=== PATIENT | female | born 1975 | race Caucasian/White ===

== ENCOUNTER 2016-10-09 08:07 | Emergency (ER) | payer SELFPAY ==
[~2016-10-09] VITALS: Ht 160 cm; Wt 68.0 kg
[2016-10-09] MEDS ORDERED: ASPIRIN 81 MG CHEW (CHILDREN'S ASA) ONE (08:15)
[2016-10-09 08:31] LABS: BASOPHILS % (AUTO) 0 % (0-10); EOSINOPHILS # (AUTO) 0.2 10^3/uL (0.0-0.3); EOSINOPHILS % (AUTO) 2 % (0-10); LYMPHOCYTES # (AUTO) 3.4 X 10^3 (1.0-4.0); LYMPHOCYTES % (AUTO) 35 % (12-44); MEAN CORPUSCULAR HEMOGLOBIN 31 PG (25-34); MEAN CORPUSCULAR HGB CONC 34 G/DL (32-36); MEAN CORPUSCULAR VOLUME 93 FL (80-99); MEAN PLATELET VOLUME 11.6 FL (7.4-10.4); MONOCYTES # (AUTO) 0.6 X 10^3 (0.0-1.0); MONOCYTES % (AUTO) 6 % (0-12); NEUTROPHILS # (AUTO) 5.5 X 10^3 (1.8-7.8); NEUTROPHILS % (AUTO) 57 % (42-75); PLATELET COUNT 226 10^3/uL (130-400); RED BLOOD COUNT 5.08 10^6/uL (4.35-5.85); RED CELL DISTRIBUTION WIDTH 14.3 % (10.0-14.5); WHITE BLOOD COUNT 9.6 10^3/uL (4.3-11.0)
[2016-10-09 08:50] LABS: ALANINE AMINOTRANSFERASE 16 U/L (0-55); ALBUMIN 4.4 G/DL (3.2-4.5); ANION GAP 9 MMOL/L (5-14); ASPARTATE AMINO TRANSFERASE 14 U/L (5-34); BILIRUBIN,TOTAL 0.7 MG/DL (0.1-1.0); BLOOD UREA NITROGEN 11 MG/DL (7-18); BUN/CREATININE RATIO 14; CALCIUM 9.1 MG/DL (8.5-10.1); CARBON DIOXIDE 22 MMOL/L (21-32); CHLORIDE 110 MMOL/L (98-107); CREATININE SERUM 0.77 MG/DL (0.60-1.30); GFR ESTIMATED > 60; GLUCOSE 110 MG/DL (70-105); POTASSIUM 3.9 MMOL/L (3.6-5.0); SODIUM 141 MMOL/L (135-145)
[2016-10-09 08:55] LABS: TROPONIN I < 0.30 NG/ML (<0.30)
--- NOTE | 2016-10-09 09:06 | Diagnostic Imaging Report ---
EXAMINATION: Portable upright radiograph of the chest. INDICATION: Chest pain. FINDINGS: The lungs are clear. The heart size is normal. There is no effusion or pneumothorax. The mediastinum and adarsh appear unremarkable. IMPRESSION: Unremarkable exam. Dictated by: Dictated on workstation # [id number]
--- NOTE | 2016-10-09 10:29 | ED Chest Pain ---
General Chief Complaint: Chest Pain Stated Complaint: CHEST PAIN Nursing Triage Note: Pt reports chest pain 7/10 starting yesterday and has been intermittent. worsening this am accompanied by radiating to neck, back, and left arm, and diaphoresis. Nursing Sepsis Screen: No Definite Risk Source: patient Exam Limitations: no limitations History of Present Illness Time seen by provider: 10:23 Initial Comments The patient is a 41-year-old white female. She reports that for the past 2 days she is experienced very sharp chest pain which is central and radiates to the neck and arms. It lasts for no more than a few seconds. It occurs when she goes from the prone position to standing. She has no family history of early heart disease. Her cholesterol is not known. Her blood pressure status is not known. She still menstruates regularly. She has smoked for somewhat more than 20 years at one half pack cigarettes per day. She has no dyspnea on exertion. She is not diabetic. Timing/Duration: 1-2 days Severity/Quality: severe, sharp Location: central Radiation: jaw, back Prior CP/Workup: no prior chest pain Associated Symptoms: denies symptoms Allergies and Home Medications Home Medications No Active Prescriptions or Reported Meds Review of Systems Constitutional: see HPI EENTM: No Symptoms Reported Respiratory: No Symptoms Reported Cardiovascular: See HPI, Chest Pain Gastrointestinal: No Symptoms Reported Genitourinary: No Symptoms Reported Musculoskeletal: no symptoms reported Skin: no symptoms reported Psychiatric/Neurological: No Symptoms Reported Past Bavekpk-Zarqrk-Fjkkho Hx Patient Social History Alcohol Use: Occasionally Uses Recreational Drug Use: No Smoking Status: Current Everyday Smoker Type Used: Cigarettes 2nd Hand Smoke Exposure: Yes Recent Foreign Travel: No Contact w/Someone Who Travel: No Recent Infectious Disease Expo: No Recent Hopitalizations: No Immunizations Up To Date Tetanus Booster (TDap): Unknown Seasonal Allergies Seasonal Allergies: Yes Surgeries HX Surgeries: Yes Surgeries: Adenoidectomy, Tonsillectomy Respiratory Hx Respiratory Disorders: No Cardiovascular Hx Cardiac Disorders: No Neurological Hx Neurological Disorders: No Reproductive System : No Hx Reproductive Disorders: No Genitourinary Hx Genitourinary Disorders: No Gastrointestinal Hx Gastrointestinal Disorders: No Musculoskeletal Hx Musculoskeletal Disorders: No Endocrine Hx Endocrine Disorders: No HEENT HX ENT Disorders: No Cancer Hx Cancer: No Psychosocial Hx Psychiatric Problems: No Integumentary HX Skin/Integumentary Disorder: No Blood Transfusions Hx Blood Disorders: No Physical Exam Vital Signs Vital Sign - Last 12Hours Capillary Refill : Less Than 3 Seconds General Appearance: No Apparent Distress, WD/WN HEENT: Normal ENT Inspection Neck: Normal Inspection Respiratory: Chest Non Tender, Lungs Clear, Normal Breath Sounds, No Accessory Muscle Use, No Respiratory Distress Cardiovascular: Regular Rate, Rhythm, No Edema, No Gallop, No JVD, No Murmur, Normal Peripheral Pulses Gastrointestinal: Normal Bowel Sounds, No Organomegaly, No Pulsatile Mass, Non Tender Extremity: Normal Capillary Refill, Normal Inspection, Normal Range of Motion, Non Tender, No Calf Tenderness, No Pedal Edema Neurologic/Psychiatric: Alert, Oriented x3, No Motor/Sensory Deficits, Normal Mood/Affect Skin: Normal Color, Warm/Dry Progress/Results/Core Measures Results/Orders Lab Results Laboratory Tests Test 10/09/16 08:22 Range/Units White Blood Count 9.6 4.3-11.0 10^3/uL Red Blood Count 5.08 4.35-5.85 10^6/uL Hemoglobin 15.9 11.5-16.0 G/DL Hematocrit 47 35-52 % Mean Corpuscular Volume 93 80-99 FL Mean Corpuscular Hemoglobin 31 25-34 PG Mean Corpuscular Hemoglobin Concent 34 32-36 G/DL Red Cell Distribution Width 14.3 10.0-14.5 % Platelet Count 226 130-400 10^3/uL Mean Platelet Volume 11.6 H 7.4-10.4 FL Neutrophils (%) (Auto) 57 42-75 % Lymphocytes (%) (Auto) 35 12-44 % Monocytes (%) (Auto) 6 0-12 % Eosinophils (%) (Auto) 2 0-10 % Basophils (%) (Auto) 0 0-10 % Neutrophils # (Auto) 5.5 1.8-7.8 X 10^3 Lymphocytes # (Auto) 3.4 1.0-4.0 X 10^3 Monocytes # (Auto) 0.6 0.0-1.0 X 10^3 Eosinophils # (Auto) 0.2 0.0-0.3 10^3/uL Basophils # (Auto) 0.0 0.0-0.1 10^3/uL Sodium Level 141 135-145 MMOL/L Potassium Level 3.9 3.6-5.0 MMOL/L Chloride Level 110 H 98-107 MMOL/L Carbon Dioxide Level 22 21-32 MMOL/L Anion Gap 9 5-14 MMOL/L Blood Urea Nitrogen 11 7-18 MG/DL Creatinine 0.77 0.60-1.30 MG/DL Estimat Glomerular Filtration Rate > 60 BUN/Creatinine Ratio 14 Glucose Level 110 H 70-105 MG/DL Calcium Level 9.1 8.5-10.1 MG/DL Total Bilirubin 0.7 0.1-1.0 MG/DL Aspartate Amino Transf (AST/SGOT) 14 5-34 U/L Alanine Aminotransferase (ALT/SGPT) 16 0-55 U/L Alkaline Phosphatase 64 40-136 U/L Troponin I < 0.30 <0.30 NG/ML Total Protein 7.0 6.4-8.2 G/DL Albumin 4.4 3.2-4.5 G/DL My Orders Orders - LISSETTE FISHER MD Ekg Tracing (10/09/16 08:10) Cbc With Automated Diff (10/09/16 08:10) Comprehensive Metabolic Panel (10/09/16 08:10) Troponin I (10/09/16 08:10) Chest 1 View, Ap/Pa Only (10/09/16 08:10) Aspirin Chewable Tablet (Baby Aspirin Ch (10/09/16 08:15) Medications Given in ED Current Medications Medications Dose Ordered Sig/Kd Route Start Time Stop Time Status Last Admin Dose Admin Aspirin 81 mg STK-MED ONCE .ROUTE 10/09/16 08:15 10/09/16 08:19 DC 10/09/16 08:18 81 MG Vital Signs/I&O Vital Sign - Last 12Hours 10/09/16 10/09/16 08:11 08:11 Pulse 70 Resp 18 B/P (MAP) 138/84 Pulse Ox 95 O2 Delivery Room Air Room Air Blood Pressure Mean: 102 Departure Communication Progress Notes Chest x-ray, EKG, and troponin are all normal. She has attempted nothing in the way of NSAIDs for pain relief. She is felt to fall in the low risk category. Impression Impression: Primary Impression: Chest pain Disposition: HOME, SELF-CARE Condition: Stable/Unchanged Departure-Patient Inst. Decision time for Depature: 10:29 Patient Instructions: Chest Pain That Is Not Caused by the Heart (DC) Add. Discharge Instructions: All discharge instructions reviewed with patient and/or family. Voiced understanding. Take one aspirin daily at present. Try ibuprofen 600 mg 3 times daily or naproxen 222 tabs twice daily for the next several days to see if this relieves your symptoms. If symptoms persist after these measures see your doctor or return to the emergency room Scripts No Active Prescriptions or Reported Meds LISSETTE FISHER MD October 09, 2016 10:29
[2016-10-09 10:53] VITALS: BP 113/87
== END 2016-10-09 10:53 | disposition home or self-care (01) ==
LOC: ER 08:10
DX: R07.9 Chest pain, unspecified (principal); F17.210 Nicotine dependence, cigarettes, uncomplicated
CPT/HCPCS: 36415; 71010; 80053; 84484; 85025; 93005

== ENCOUNTER 2018-05-17 22:36 | Emergency (ER) | payer MEDICAID, OTHER ==
[~2018-05-17] VITALS: Ht 160 cm; Wt 97.5 kg
[2018-05-17 23:22] LABS: BILIRUBIN,URINE NEGATIVE (NEGATIVE); CLARITY,URINE CLEAR; COLOR,URINE YELLOW; GLUCOSE, URINE (UA) NEGATIVE (NEGATIVE); KETONES,URINE NEGATIVE (NEGATIVE); LEUKOCYTE ESTERASE ,URINE NEGATIVE (NEGATIVE); NITRITE,URINE NEGATIVE (NEGATIVE); PH,URINE 6 (5-9); PROTEIN,URINE NEGATIVE (NEGATIVE); UROBILINOGEN,URINE NORMAL (NORMAL)
[2018-05-17 23:28] LABS: BASOPHILS % (AUTO) 0 % (0-10); EOSINOPHILS # (AUTO) 0.9 10^3/uL (0.0-0.3); EOSINOPHILS % (AUTO) 8 % (0-10); HEMATOCRIT 43 % (35-52); HEMOGLOBIN 14.4 G/DL (11.5-16.0); LYMPHOCYTES # (AUTO) 3.9 X 10^3 (1.0-4.0); LYMPHOCYTES % (AUTO) 36 % (12-44); MEAN CORPUSCULAR HEMOGLOBIN 32 PG (25-34); MEAN CORPUSCULAR HGB CONC 33 G/DL (32-36); MEAN CORPUSCULAR VOLUME 98 FL (80-99); MEAN PLATELET VOLUME 11.4 FL (7.4-10.4); MONOCYTES # (AUTO) 0.6 X 10^3 (0.0-1.0); MONOCYTES % (AUTO) 6 % (0-12); NEUTROPHILS # (AUTO) 5.4 X 10^3 (1.8-7.8); NEUTROPHILS % (AUTO) 50 % (42-75); PLATELET COUNT 237 10^3/uL (130-400); RED BLOOD COUNT 4.45 10^6/uL (4.35-5.85); RED CELL DISTRIBUTION WIDTH 14.3 % (10.0-14.5); WHITE BLOOD COUNT 10.8 10^3/uL (4.3-11.0)
[2018-05-17 23:29] LABS: BACTERIA,URINE TRACE /HPF; WBC,URINE 0-2 /HPF
[2018-05-17 23:46] LABS: BILIRUBIN,TOTAL 0.2 MG/DL (0.1-1.0); CALCIUM 8.6 MG/DL (8.5-10.1); CREATININE SERUM 1.06 MG/DL (0.60-1.30); MAGNESIUM 2.2 MG/DL (1.8-2.4); POTASSIUM 3.3 MMOL/L (3.6-5.0); TOTAL PROTEIN 6.3 GM/DL (6.4-8.2)
[2018-05-17 23:52] LABS: INR 0.9 (0.8-1.4); PROTHROMBIN TIME PATIENT 11.9 SEC (12.2-14.7)
[2018-05-18] MEDS ORDERED: FUROSEMIDE 40 MG/4 ML INJ (LASIX) IVP ONE
[2018-05-18 00:08] LABS: AMPHETAMINE SCREEN, URINE NEGATIVE (NEGATIVE); BARBITURATE SCREEN URINE NEGATIVE (NEGATIVE); BENZODIAZEPINES SCREEN URINE NEGATIVE (NEGATIVE); CANNABINOID SCREEN, URINE POSITIVE (NEGATIVE); COCAINE SCREEN URINE NEGATIVE (NEGATIVE); METHADONE STAT NEGATIVE (NEGATIVE); METHAMPHETAMINE SCREEN URINE S NEGATIVE (NEGATIVE); OPIATE SCREEN URINE NEGATIVE (NEGATIVE); OXYCODONE STAT NEGATIVE (NEGATIVE); PROPOXYPHENE STAT NEGATIVE (NEGATIVE); TRICYCLIC ANTIDEPRESSANTS SCRE NEGATIVE (NEGATIVE)
[2018-05-18] MEDS ORDERED: KCL 10 MEQ TAB (MICRO K) PO ONE ×2 (00:15→00:57)
--- NOTE | 2018-05-18 00:32 | ED General ---
General Chief Complaint: General Problems/Pain Stated Complaint: ALLERGIC REACTION Nursing Triage Note: PT WAS SEEN AT [facility] IN [facility], PLACED ON STERIOD MEDICATION LAST THURSDAY, THURSDAY THE PT STATES SHE BEGAN TO EXPERIENCE SWELLING OF THE HANDS AND FEET WITH HAND NUMBNESS REPORTED IN THE RIGHT HAND. DENIES SOB OR DIFFICULTY BREATHING Nursing Sepsis Screen: No Definite Risk Allergies and Home Medications Allergies Coded Allergies: No Known Drug Allergies (Unverified , 05/17/18) Home Medications No Active Prescriptions or Reported Meds Past Agtztaf-Okyreo-Mcjtqg Hx Patient Social History Alcohol Use: Occasionally Uses Number of Drinks Today: 3 Alcohol Beverage of Choice: Cheap Liquor Recreational Drug Use: No Smoking Status: Current Everyday Smoker Type Used: Cigarettes 2nd Hand Smoke Exposure: Yes Recent Foreign Travel: No Contact w/Someone Who Travel: No Recent Infectious Disease Expo: No Recent Hopitalizations: No Immunizations Up To Date Tetanus Booster (TDap): Unknown Seasonal Allergies Seasonal Allergies: Yes Past Medical History Surgeries: Yes Adenoidectomy, Tonsillectomy Respiratory: No Cardiac: No Neurological: No : No Last Menstrual Period: May 02, 2018 Reproductive Disorders: No Gastrointestinal: No Musculoskeletal: No Endocrine: No Cancer: No Psychosocial: No Integumentary: No Blood Disorders: No Physical Exam Vital Signs Vital Signs - First Documented 05/17/18 22:40 Temp 97.3 Pulse 88 Resp 20 B/P (MAP) 120/63 (82) Pulse Ox 95 O2 Delivery Room Air Capillary Refill : Less Than 3 Seconds Height, Weight, BMI Height: 5'3.00" Weight: 215lbs. oz. 97.537351fw; BMI Method:Stated Progress/Results/Core Measures Suspected Sepsis Recent Fever Within 48 Hours: No Infection Criteria Present: None New/Unexplained Altered Menta: No Sepsis Screen: No Definite Risk SIRS Temperature:97.3 Pulse: 88 Respiratory Rate: 20 Laboratory Tests 05/17/18 23:15: White Blood Count 10.8 Blood Pressure 120 /63 Mean: 82 Laboratory Tests 05/17/18 23:15: Creatinine 1.06, INR Comment 0.9, Platelet Count 237, Total Bilirubin 0.2 Results/Orders Lab Results Laboratory Tests Test 05/17/18 23:05 05/17/18 23:15 Range/Units Urine Color YELLOW Urine Clarity CLEAR Urine pH 6 5-9 Urine Specific [place] 1.005 L 1.016-1.022 Urine Protein NEGATIVE NEGATIVE Urine Glucose (UA) NEGATIVE NEGATIVE Urine Ketones NEGATIVE NEGATIVE Urine Nitrite NEGATIVE NEGATIVE Urine Bilirubin NEGATIVE NEGATIVE Urine Urobilinogen NORMAL NORMAL MG/DL Urine Leukocyte Esterase NEGATIVE NEGATIVE Urine RBC (Auto) NEGATIVE NEGATIVE Urine RBC NONE /HPF Urine WBC 0-2 /HPF Urine Squamous Epithelial Cells 10-25 H /HPF Urine Crystals NONE /LPF Urine Bacteria TRACE /HPF Urine Casts NONE /LPF Urine Mucus NEGATIVE /LPF Urine Culture Indicated NO Urine Opiates Screen NEGATIVE NEGATIVE Urine Oxycodone Screen NEGATIVE NEGATIVE Urine Methadone Screen NEGATIVE NEGATIVE Urine Propoxyphene Screen NEGATIVE NEGATIVE Urine Barbiturates Screen NEGATIVE NEGATIVE Ur Tricyclic Antidepressants Screen NEGATIVE NEGATIVE Urine Phencyclidine Screen NEGATIVE NEGATIVE Urine Amphetamines Screen NEGATIVE NEGATIVE Urine Methamphetamines Screen NEGATIVE NEGATIVE Urine Benzodiazepines Screen NEGATIVE NEGATIVE Urine Cocaine Screen NEGATIVE NEGATIVE Urine Cannabinoids Screen POSITIVE H NEGATIVE White Blood Count 10.8 4.3-11.0 10^3/uL Red Blood Count 4.45 4.35-5.85 10^6/uL Hemoglobin 14.4 11.5-16.0 G/DL Hematocrit 43 35-52 % Mean Corpuscular Volume 98 80-99 FL Mean Corpuscular Hemoglobin 32 25-34 PG Mean Corpuscular Hemoglobin Concent 33 32-36 G/DL Red Cell Distribution Width 14.3 10.0-14.5 % Platelet Count 237 130-400 10^3/uL Mean Platelet Volume 11.4 H 7.4-10.4 FL Neutrophils (%) (Auto) 50 42-75 % Lymphocytes (%) (Auto) 36 12-44 % Monocytes (%) (Auto) 6 0-12 % Eosinophils (%) (Auto) 8 0-10 % Basophils (%) (Auto) 0 0-10 % Neutrophils # (Auto) 5.4 1.8-7.8 X 10^3 Lymphocytes # (Auto) 3.9 1.0-4.0 X 10^3 Monocytes # (Auto) 0.6 0.0-1.0 X 10^3 Eosinophils # (Auto) 0.9 H 0.0-0.3 10^3/uL Basophils # (Auto) 0.0 0.0-0.1 10^3/uL Prothrombin Time 11.9 L 12.2-14.7 SEC INR Comment 0.9 0.8-1.4 Activated Partial Thromboplast Time 27 24-35 SEC Sodium Level 143 135-145 MMOL/L Potassium Level 3.3 L 3.6-5.0 MMOL/L Chloride Level 107 98-107 MMOL/L Carbon Dioxide Level 21 21-32 MMOL/L Anion Gap 15 H 5-14 MMOL/L Blood Urea Nitrogen 12 7-18 MG/DL Creatinine 1.06 0.60-1.30 MG/DL Estimat Glomerular Filtration Rate 57 BUN/Creatinine Ratio 11 Glucose Level 109 H 70-105 MG/DL Calcium Level 8.6 8.5-10.1 MG/DL Corrected Calcium 8.6 8.5-10.1 MG/DL Magnesium Level 2.2 1.8-2.4 MG/DL Total Bilirubin 0.2 0.1-1.0 MG/DL Aspartate Amino Transf (AST/SGOT) 33 5-34 U/L Alanine Aminotransferase (ALT/SGPT) 61 H 0-55 U/L Alkaline Phosphatase 77 40-136 U/L B-Type Natriuretic Peptide 114.4 H <100.0 PG/ML Total Protein 6.3 L 6.4-8.2 GM/DL Albumin 4.0 3.2-4.5 GM/DL My Orders Orders - EDIPRESTON K DO Saline Lock/Iv-Start (05/17/18 23:05) Urine Bedside (05/17/18 23:05) BNP (05/17/18 23:05) Cbc With Automated Diff (05/17/18 23:05) Comprehensive Metabolic Panel (05/17/18 23:05) Drug Screen Stat (Urine) (05/17/18 23:05) Magnesium (05/17/18 23:05) Protime With Inr (05/17/18 23:05) Partial Thromboplastin Time (05/17/18 23:05) Ua Culture If Indicated (05/17/18 23:05) Furosemide Injection (Lasix Injection) (05/18/18 00:00) Potassium Chloride (Tablet) (Klor Con Ta (05/18/18 00:15) Chest Pa/Lat (2 View) (05/18/18 00:31) Medications Given in ED Current Medications Medications Dose Ordered Sig/Kd Route Start Time Stop Time Status Last Admin Dose Admin Furosemide 40 mg ONCE ONCE IVP 05/18/18 00:00 05/18/18 00:01 DC 05/18/18 01:03 40 MG Potassium Chloride 20 meq ONCE ONCE PO 05/18/18 00:15 05/18/18 00:16 UNV 05/18/18 01:03 20 MEQ Vital Signs/I&O 05/17/18 22:40 Temp 97.3 Pulse 88 Resp 20 B/P (MAP) 120/63 (82) Pulse Ox 95 O2 Delivery Room Air Capillary Refill : Less Than 3 Seconds Blood Pressure Mean: 82 Departure Impression Primary Impression: Bronchitis Additional Impressions: Fluid retention Hypokalemia Disposition: HOME, SELF-CARE Condition: Stable Departure-Patient Inst. Referrals: NO,LOCAL PHYSICIAN (PCP/Family) Primary Care Physician Patient Instructions: Acute Bronchitis, Adult (DC), Dependent Edema (DC), Hypokalemia (DC) Add. Discharge Instructions: LOW SODIUM DIET--LESS THAN 2 GRAMS OF SODIUM A DAY ELEVATE LEGS MUCH POSSIBLE FOLLOW UP WITH YOUR DR IN 3-4 DAYS FOR RECHECK All discharge instructions reviewed with patient and/or family. Voiced understanding. Scripts Guaifenesin/Dextromethorphan (Mucinex Dm ER 1,200-60 mg Tab) 1 Each Tbmp.12hr 1 EACH PO BID for 10 Days, #20 EA Prov: PRESTON DALEY DO 05/18/18 Benzonatate (TESSALON PERLES) 100 Mg Capsule 1-2 TAB PO TID for Cough, #30 CAP Prov: PRESTON DALEY K DO 05/18/18 Doxycycline Monohydrate (Doxycycline Monohydrate) 100 Mg Capsule 100 MG PO BID, #20 CAP Prov: PRESTON DALEY DO 05/18/18 PRESTON DALEY DO May 18, 2018 00:32
[2018-05-18] MEDS ORDERED: DOXY100C42 PO (01:09)
[2018-05-18] MEDS ORDERED: GUAI1TBM19 PO (01:09)
[2018-05-18] MEDS ORDERED: BENZ100C18 PO (01:09)
[2018-05-18] MEDS ORDERED: FUROSEMIDE 40 MG/4 ML INJ (LASIX) ONE (02:04)
[2018-05-18 02:13] VITALS: BP 114/80
--- NOTE | 2018-05-18 07:12 | Diagnostic Imaging Report ---
INDICATION: Swelling of the hands and feet with numbness. On steroids.. TECHNIQUE: Two view chest 1:08 AM CORRELATION STUDY: 10/09/2016 FINDINGS: The heart size, mediastinal configuration and pulmonary vasculature are within normal limits. The lungs are clear with no consolidating infiltrate. There is no significant pleural effusion or pneumothorax. Visualized osseous structures are unremarkable. IMPRESSION: 1. Generally stable chest demonstrating no acute abnormality. Dictated by: Dictated on workstation # [id number]
== END 2018-05-18 02:13 | disposition home or self-care (01) ==
LOC: EDUNIT# 22:36 → ER 22:37
DX: J40 Bronchitis, not specified as acute or chronic (principal); E87.70 Fluid overload, unspecified; E87.6 Hypokalemia; F17.210 Nicotine dependence, cigarettes, uncomplicated; Z90.89 Acquired absence of other organs
CPT/HCPCS: 36415; 71046; 80053; 80306; 81000; 83735; 83880; 85025; 85610; 85730; 96374

== ENCOUNTER 2018-07-17 21:10 | Emergency (ER) | payer MEDICAID ==
[~2018-07-17] VITALS: Ht 160 cm; Wt 86.2 kg
[~2018-07-17 21:10] MED LIST: BENZ100C18 PO; DOXY100C42 PO; GUAI1TBM19 PO
[2018-07-17] MEDS ORDERED: HYDROmorphone 2 MG/ML VIAL (DILAUDID) IV ONE (21:15)
--- NOTE | 2018-07-17 21:19 | ED Upper Extremity ---
General Stated Complaint: FALL Source: patient Exam Limitations: no limitations History of Present Illness Date Seen by Provider: Jul 17, 2018 Time Seen by Provider: 21:17 Initial Comments To ER per EMS with reports of left elbow pain. She fell on an outstretched arm after slipping on the ice and now has deformity and swelling to the left elbow. Did not have any other injuries. EMS did administer 50 g of fentanyl in route to the hospital. Onset: just prior to arrival Severity: moderate Pain/Injury Location: left elbow Method of Injury: fell Modifying Factors: Worse With Movement Allergies and Home Medications Allergies Coded Allergies: No Known Drug Allergies (Unverified , 05/17/18) Home Medications Benzonatate 100 Mg Capsule, 1-2 TAB PO TID Prescribed by: PRESTON DALEY on 05/18/18108 Doxycycline Monohydrate 100 Mg Capsule, 100 MG PO BID Prescribed by: PRESTON DALEY on 05/18/18108 Guaifenesin/Dextromethorphan 1 Each Tbmp.12hr, 1 EACH PO BID Prescribed by: PRESTON DALEY on 05/18/18108 Patient Home Medication List Home Medication List Reviewed: Yes Review of Systems Constitutional: see HPI EENTM: see HPI Respiratory: no symptoms reported Cardiovascular: no symptoms reported Genitourinary: no symptoms reported Musculoskeletal: no symptoms reported Skin: no symptoms reported Psychiatric/Neurological: No Symptoms Reported Past Vritrpg-Jdpxev-Obdufw Hx Patient Social History Alcohol Beverage of Choice: Cheap Liquor Drug of Choice: METH, THC, DENIES IV USE Type Used: Cigarettes 2nd Hand Smoke Exposure: Yes Recent Foreign Travel: No Contact w/Someone Who Travel: No Recent Hopitalizations: No Immunizations Up To Date Tetanus Booster (TDap): Unknown Seasonal Allergies Seasonal Allergies: Yes Past Medical History Surgeries: Yes Adenoidectomy, Tonsillectomy Respiratory: No Cardiac: No Neurological: No Reproductive Disorders: No Female Reproductive Disorders: Denies Genitourinary: No Gastrointestinal: No Musculoskeletal: No Endocrine: No HEENT: No Cancer: No Psychosocial: No Integumentary: No Blood Disorders: No Physical Exam Vital Signs Vital Signs - First Documented 07/17/18 21:25 Temp 97.6 Pulse 94 Resp 20 B/P (MAP) 109/73 (85) Pulse Ox 93 O2 Delivery Room Air Capillary Refill : Height, Weight, BMI Height: 5'3.00" Weight: 215lbs. oz. 97.638985mv; BMI Method:Stated General Appearance: WD/WN, no apparent distress HEENT: PERRL/EOMI, normal ENT inspection Neck: non-tender, full range of motion Respiratory: no respiratory distress, no accessory muscle use Shoulder: normal inspection, non-tender Elbow/Forearm: Left, deformity, limited ROM, pain, swelling Wrist: Yes normal inspection, Yes non-tender Hand: normal inspection, non-tender, no evidence of injury, Left ( SHE has a strong radial pulse. She is able to feel me touching her fingertips but reports that there is an unusual sensation to the fingertips.) Neurologic/Psychiatric: alert, normal mood/affect, oriented x 3 Skin: normal color, warm/dry Progress/Results/Core Measures Results/Orders Lab Results Laboratory Tests Test 07/17/18 22:35 Range/Units White Blood Count 8.8 4.3-11.0 10^3/uL Red Blood Count 4.55 4.35-5.85 10^6/uL Hemoglobin 14.9 11.5-16.0 G/DL Hematocrit 44 35-52 % Mean Corpuscular Volume 97 80-99 FL Mean Corpuscular Hemoglobin 33 25-34 PG Mean Corpuscular Hemoglobin Concent 34 32-36 G/DL Red Cell Distribution Width 14.0 10.0-14.5 % Platelet Count 247 130-400 10^3/uL Mean Platelet Volume 10.7 H 7.4-10.4 FL Neutrophils (%) (Auto) 59 42-75 % Lymphocytes (%) (Auto) 33 12-44 % Monocytes (%) (Auto) 7 0-12 % Eosinophils (%) (Auto) 2 0-10 % Basophils (%) (Auto) 0 0-10 % Neutrophils # (Auto) 5.2 1.8-7.8 X 10^3 Lymphocytes # (Auto) 2.9 1.0-4.0 X 10^3 Monocytes # (Auto) 0.6 0.0-1.0 X 10^3 Eosinophils # (Auto) 0.1 0.0-0.3 10^3/uL Basophils # (Auto) 0.0 0.0-0.1 10^3/uL Serum Test, Qualitative NEGATIVE NEGATIVE My Orders Orders - MILA MAIER APRN Hydromorphone Injection (Dilaudid Inject (07/17/18 21:15) Iv Heplock-Insert (Order) (07/17/18 21:15) Elbow, Left, 2 Views (07/17/18 21:29) Cbc With Automated Diff (07/17/18 22:22) Comprehensive Metabolic Panel (07/17/18 22:22) Alcohol (07/17/18 22:22) Hcg,Qualitative Serum (07/17/18 22:22) Protime With Inr (07/17/18 22:22) Iv Heplock-Insert (Order) (07/17/18 22:22) Medications Given in ED Current Medications Medications Dose Ordered Sig/Kd Route Start Time Stop Time Status Last Admin Dose Admin Hydromorphone HCl 1 mg ONCE ONCE IV 07/17/18 21:15 07/17/18 21:16 DC 07/17/18 21:22 1 MG Vital Signs/I&O 07/17/18 21:25 Temp 97.6 Pulse 94 Resp 20 B/P (MAP) 109/73 (85) Pulse Ox 93 O2 Delivery Room Air Diagnostic Imaging Diagonstic Imaging: Xray Comments NAME: HEIDI BENNETT [facility] REC#: [id number] PT STATUS: REG ER : 1975 PHYSICIAN: MILA MAIER APRN ADMIT DATE: 07/17/18/ER Draft Date of Exam:07/17/18 ELBOW, LEFT, 2 VIEWS EXAMINATION: Left elbow, 3 views. COMPARISON: None. HISTORY: 42-year-old female, fall on ice. Left elbow pain. FINDINGS: There is a severely comminuted displaced intra-articular fracture of the left distal humerus. There is involvement of the articulating surface in the region of the trochlea with offset of the articulating surface. The primary fracture fragment containing the humeral diaphysis is displaced laterally by roughly 1.7 cm. There is abnormal medial to lateral splaying of the primary distal humeral fracture fragments. There is also anterior to posterior splaying of fracture fragments. IMPRESSION: Comminuted displaced intra-articular fracture of the distal humerus. Dictated on workstation # [id number] Dict: [id number]/17/[id number] Trans: 07/17/182205 [facility] [id number] Interpreted by: ARIC NATARAJAN MD Electronically signed by: Departure Communication (Admissions) We do not have any orthopedic coverage yesterday today or tomorrow. She will require transfer to an orthopedic capable facility [facility] for orthopedist [place]. . 2154- I discussed the case with Nidia Kidd orthopedic surgeon Dr. Gloria. Recommends transfer to [facility]. 2239-Dr Garcia accepts pt to [place] [address] at . RN report # [phone]. Pt is in a posterior long arm splint. Remains neurovascularly intact with strong radial pulse and reduced but present sensation in fingers. Impression Primary Impression: Closed supracondylar fracture of elbow Qualified Codes: S42.412A - Displaced simple supracondylar fracture without intercondylar fracture of left humerus, initial encounter for closed fracture Disposition: XFER SHT-TRM HOSP Condition: Stable Departure-Patient Inst. Referrals: NO,LOCAL PHYSICIAN (PCP/Family) Primary Care Physician MILA MAIER APRN Jul 17, 2018 21:19
--- NOTE | 2018-07-17 21:25 | NUR ---
Pt's oxygen saturation dropped to 89% after dilaudid was given through IV. Pt was placed on 1 liter nasal canula, oxygen saturation increase over 92%.
--- NOTE | 2018-07-17 22:07 | Diagnostic Imaging Report ---
EXAMINATION: Left elbow, 3 views. COMPARISON: None. HISTORY: 42-year-old female, fall on ice. Left elbow pain. FINDINGS: There is a severely comminuted displaced intra-articular fracture of the left distal humerus. There is involvement of the articulating surface in the region of the trochlea with offset of the articulating surface. The primary fracture fragment containing the humeral diaphysis is displaced laterally by roughly 1.7 cm. There is abnormal medial to lateral splaying of the primary distal humeral fracture fragments. There is also anterior to posterior splaying of fracture fragments. IMPRESSION: Comminuted displaced intra-articular fracture of the distal humerus. Dictated by: Dictated on workstation # [id number]
[2018-07-17 22:47] LABS: BASOPHILS % (AUTO) 0 % (0-10); EOSINOPHILS # (AUTO) 0.1 10^3/uL (0.0-0.3); EOSINOPHILS % (AUTO) 2 % (0-10); HEMATOCRIT 44 % (35-52); HEMOGLOBIN 14.9 G/DL (11.5-16.0); LYMPHOCYTES # (AUTO) 2.9 X 10^3 (1.0-4.0); LYMPHOCYTES % (AUTO) 33 % (12-44); MEAN CORPUSCULAR HEMOGLOBIN 33 PG (25-34); MEAN CORPUSCULAR HGB CONC 34 G/DL (32-36); MEAN CORPUSCULAR VOLUME 97 FL (80-99); MEAN PLATELET VOLUME 10.7 FL (7.4-10.4); MONOCYTES # (AUTO) 0.6 X 10^3 (0.0-1.0); MONOCYTES % (AUTO) 7 % (0-12); NEUTROPHILS # (AUTO) 5.2 X 10^3 (1.8-7.8); NEUTROPHILS % (AUTO) 59 % (42-75); PLATELET COUNT 247 10^3/uL (130-400); WHITE BLOOD COUNT 8.8 10^3/uL (4.3-11.0)
[2018-07-17 22:55] LABS: INR 0.9 (0.8-1.4); PROTHROMBIN TIME PATIENT 12.1 SEC (12.2-14.7)
[2018-07-17 23:07] LABS: ALANINE AMINOTRANSFERASE 41 U/L (0-55); ALBUMIN 4.4 GM/DL (3.2-4.5); ALKALINE PHOSPHATASE 78 U/L (40-136); BILIRUBIN,TOTAL 0.2 MG/DL (0.1-1.0); BUN/CREATININE RATIO 10; CALCIUM 8.7 MG/DL (8.5-10.1); CARBON DIOXIDE 19 MMOL/L (21-32); CHLORIDE 104 MMOL/L (98-107); CREATININE SERUM 0.81 MG/DL (0.60-1.30); GFR ESTIMATED > 60; GLUCOSE 127 MG/DL (70-105); POTASSIUM 3.3 MMOL/L (3.6-5.0); SODIUM 139 MMOL/L (135-145); TOTAL PROTEIN 7.1 GM/DL (6.4-8.2)
[2018-07-17] MEDS ORDERED: fentaNYL INJECTION 100 MCG/2 ML AMP IVP ONE (23:15)
[2018-07-17 23:20] VITALS: BP 114/82
--- OUTSIDE RECORDS SUMMARY | 2018-07-18 00:38 | XMS REPORT ---
Author Author RYAN SHELDON Organization [facility] Address [address] [place] [address] Care Team Providers Care Mold Changer Name Role Phone RYAN SHELDON Unavailable PROBLEMS Unknown Problems ALLERGIES No Known Allergies ENCOUNTERS Encounter Location Date Diagnosis [facility] [id number] [place] [id number] Mar, Mouth pain K13.79 [facility] [id number] [place] [id number] Aug, Dental caries K02.9 [facility] [address] [id number] Jul, Dental examination Z01.20 IMMUNIZATIONS No Known Immunizations SOCIAL HISTORY Never Assessed REASON FOR VISIT Left upper molar pain x 24 hours. Tylenol (1500mg) last taken at 15:40 today. Pt states she has not seen a dentist for 2 years now. shamir PLAN OF CARE Activity Details Follow Up w/ dental 03/17 Reason:dental pain/broken molar VITAL SIGNS Height 63.39 in 2018-03-16 Weight 219.2 lbs 2018-03-16 Temperature 97.7 degrees Fahrenheit 2018-03-16 Heart Rate 92 bpm 2018-03-16 Respiratory Rate 20 2018-03-16 BMI 38.35 kg/m2 2018-03-16 Blood pressure systolic 130 mmHg 2018-03-16 Blood pressure diastolic 98 mmHg 2018-03-16 MEDICATIONS Medication Instructions Dosage Frequency Start Date End Date Duration Status Amoxicillin 500 mg Orally every 8 hrs 1 capsule 8h Mar, Mar, 10 day(s) Active RESULTS No Results PROCEDURES No Known procedures INSTRUCTIONS MEDICATIONS ADMINISTERED No Known Medications MEDICAL (GENERAL) HISTORY Type Description Date Surgical History No know Surgical history
--- OUTSIDE RECORDS SUMMARY | 2018-07-18 00:38 | XMS REPORT ---
Author Author DIAMOND PAINTER Organization [facility] Address [address] [place] [address] Care Team Providers Care Atmospheric Chemist Name Role Phone DIAMOND PAINTER Unavailable PROBLEMS Unknown Problems ALLERGIES No Known Allergies ENCOUNTERS Encounter Location Date Diagnosis [facility] [id number] [place] [phone] May, Acute sinusitis J01.90 [facility] [id number] [place] [phone] Mar, Mouth pain K13.79 [facility] [id number] [place] [phone] Aug, Dental caries K02.9 [facility] [id number] [place] [phone] Jul, Dental examination Z01.20 IMMUNIZATIONS No Known Immunizations SOCIAL HISTORY Never Assessed REASON FOR VISIT Cold symptoms x2 weeks; ears plugged, sinus pressure, sore throat, fever blisters, dry cough - MALIKA Young PLAN OF CARE Activity Details Follow Up if not improving with PCP or reg follow up Reason: VITAL SIGNS Height 63.39 in 2018-05-11 Weight 215.6 lbs 2018-05-11 Temperature 97.8 degrees Fahrenheit 2018-05-11 Heart Rate 72 bpm 2018-05-11 Respiratory Rate 18 2018-05-11 BMI 37.72 kg/m2 2018-05-11 Blood pressure systolic 130 mmHg 2018-05-11 Blood pressure diastolic 86 mmHg 2018-05-11 MEDICATIONS Medication Instructions Dosage Frequency Start Date End Date Duration Status Cetirizine HCl 10 MG Orally Once a day 1 tablet 24h May, 30 day (s) Active PredniSONE 20 MG Orally Once a day 2 tablet 24h May, 5 days Active RESULTS No Results PROCEDURES No Known procedures INSTRUCTIONS MEDICATIONS ADMINISTERED No Known Medications MEDICAL (GENERAL) HISTORY Type Description Date Surgical History No know Surgical history
--- OUTSIDE RECORDS SUMMARY | 2018-07-18 00:38 | XMS REPORT ---
Author Author ALETHA Zaragoza [facility] Address Unknown Care Team Providers Care Crib Clerk Name Role Phone ALETHA Zaragoza Unavailable PROBLEMS Unknown Problems ALLERGIES No Known Allergies SOCIAL HISTORY Never Assessed PLAN OF CARE Activity Details Follow Up prn Reason:1wk TE #1,2 VITAL SIGNS MEDICATIONS Medication Instructions Dosage Frequency Start Date End Date Duration Status Amoxicillin 500 MG Orally 4 times daily 1 capsule 7 days Active RESULTS No Results PROCEDURES Procedure Date Ordered Result Body Site LTD ORAL EVALUATION - PROBLEM FOCUS Jul 31, 2016 INTRAORL-PERIAPICAL 1 FILM [id number] Jul 31, 2016 IMMUNIZATIONS No Known Immunizations
== END 2018-07-17 22:36 | disposition short-term general hospital (02) ==
LOC: EDUNIT# 21:10 → ER 21:12
DX: S42.412A Displaced simple supracondylar fracture without intercondylar fracture of left humerus, initial encounter for closed fracture (principal); M25.522 Pain in left elbow; Z77.22 Contact with and (suspected) exposure to environmental tobacco smoke (acute) (chronic); Z90.89 Acquired absence of other organs; W00.9XXA Unspecified fall due to ice and snow, initial encounter
CPT/HCPCS: 29105; 36415; 73070; 80053; 80320; 84703; 85025; 85610

== ENCOUNTER 2020-09-10 11:26 | Emergency (ER) | payer MEDICAID ==
[~2020-09-10] VITALS: Ht 160 cm; Wt 87.7 kg
[2020-09-10] MEDS ORDERED: ACHD5005 PO (12:11)
[2020-09-10] MEDS ORDERED: ACYC400T PO (12:11)
--- NOTE | 2020-09-10 12:11 | ED General ---
General Chief Complaint: General Problems/Pain Stated Complaint: INSIDE MOUTH BLISTERED/PAIN Nursing Triage Note: AMB TO ROOM REPORTS HAS HAS PAIN AND SWELLING IN MOUTH FOR 1 WEEK WAS SEEN AT [facility] ON SAT STARTED ON STEROID WAS TOLD IT WAS A ALLERGIC REACTION. CON'T TO HAVE MOUTH PAIN. ULCER NOTED ON LOWER LIP Nursing Sepsis Screen: No Definite Risk Source of Information: Patient Exam Limitations: No Limitations History of Present Illness Date Seen by Provider: Sep 10, 2020 Time Seen by Provider: 12:07 Initial Comments To ER with pain and swelling in her mouth for 1 week. At the onset of this she was seen and given a prescription for steroids which did not help. She has sores inside her mouth as well as on her lips. She is never had this before but she does get cold sores occasionally. No fevers or chills no cough no shortness of breath. No skin rash. No abdominal cramping no diarrhea no bloody or mucousy stools. Timing/Duration: 1-2 Days Severity: Moderate Associated Systoms: Denies Symptoms Allergies and Home Medications Allergies Coded Allergies: No Known Drug Allergies (Unverified , 05/17/18) Home Medications Benzonatate 100 Mg Capsule, 1-2 TAB PO TID Prescribed by: PRESTON DALEY on 05/18/18108 Doxycycline Monohydrate 100 Mg Capsule, 100 MG PO BID Prescribed by: PRESTON DALEY on 05/18/18108 Guaifenesin/Dextromethorphan 1 Each Tbmp.12hr, 1 EACH PO BID Prescribed by: PRESTON DALEY on 05/18/18108 Patient Home Medication List Home Medication List Reviewed: Yes Review of Systems Review of Systems Constitutional: see HPI EENTM: see HPI, mouth swelling Respiratory: no symptoms reported Cardiovascular: no symptoms reported Genitourinary: no symptoms reported Musculoskeletal: no symptoms reported Skin: no symptoms reported Psychiatric/Neurological: No Symptoms Reported Hematologic/Lymphatic: No Symptoms Reported Immunological/Allergic: no symptoms reported Past Zkizcwr-Wnlnbe-Qkjpmg Hx Patient Social History Alcohol Use: Occasionally Uses Number of Drinks Today: CC Alcohol Beverage of Choice: Cheap Liquor Drug of Choice: METH, THC, DENIES IV USE Smoking Status: Current Everyday Smoker Type Used: Cigarettes 2nd Hand Smoke Exposure: Yes Recent Infectious Disease Expo: No Recent Hopitalizations: No Immunizations Up To Date Tetanus Booster (TDap): Unknown Seasonal Allergies Seasonal Allergies: Yes Past Medical History Surgeries: Yes Adenoidectomy, Tonsillectomy Respiratory: No Cardiac: No Neurological: No Reproductive Disorders: No Female Reproductive Disorders: Denies Genitourinary: No Gastrointestinal: No Musculoskeletal: No Endocrine: No HEENT: No Cancer: No Psychosocial: No Integumentary: No Blood Disorders: No Physical Exam Vital Signs Vital Signs - First Documented 09/10/20 11:33 Temp 36.4 Pulse 78 Resp 18 B/P (MAP) 167/109 (128) Pulse Ox 98 O2 Delivery Room Air Capillary Refill : Less Than 3 Seconds Height, Weight, BMI Height: 5'3.00" Weight: 190lbs. 0oz. 86.526141zw; 34.00 BMI Method:Stated General Appearance: No Apparent Distress, WD/WN Eyes: Bilateral Eye Normal Inspection, Bilateral Eye PERRL, Bilateral Eye EOMI HEENT: Other (Multiple shallow erosions on the buccal surface and on the bottom lip. Appears to be a herpetic gingivostomatitis.) Neck: Full Range of Motion, Normal Inspection Respiratory: Normal Breath Sounds, No Accessory Muscle Use Cardiovascular: Regular Rate, Rhythm, Normal Peripheral Pulses Gastrointestinal: Normal Bowel Sounds, Non Tender, Soft Extremity: Normal Capillary Refill, Normal Inspection Neurologic/Psychiatric: Alert, Oriented x3 Skin: Normal Color, Warm/Dry Progress/Results/Core Measures Suspected Sepsis Recent Fever Within 48 Hours: No Infection Criteria Present: None New/Unexplained Altered Menta: No Sepsis Screen: No Definite Risk SIRS Temperature: Pulse: 78 Respiratory Rate: 18 Blood Pressure 167 /109 Mean: 128 Results/Orders My Orders Orders - MILA MAIER APRN Hydrocodone/Apap 5/325 Tablet (Lortab 5 (09/10/20 12:15) Lidocaine 2% Viscous 15 Ml (Xylocaine Vi (09/10/20 12:15) Antacid Suspension (Mylanta Suspension (09/10/20 12:15) Acyclovir Oral Suspension (Zovirax Ora (09/10/20 12:15) Vital Signs/I&O 09/10/20 11:33 Temp 36.4 Pulse 78 Resp 18 B/P (MAP) 167/109 (128) Pulse Ox 98 O2 Delivery Room Air Capillary Refill : Less Than 3 Seconds Blood Pressure Mean: 128 Departure Impression Primary Impression: Herpetic gingivostomatitis Disposition: 01 HOME, SELF-CARE Condition: Stable Departure-Patient Inst. Decision time for Depature: 12:09 Referrals: [facility] (PCP/Family) Primary Care Physician Patient Instructions: Mouth Sores Add. Discharge Instructions: 1. It is important that you follow-up with someone about this. Try to make an appointment to be seen by someone in primary care possibly at [facility] in about a week. Take the medication as directed. All discharge instructions reviewed with patient and/or family. Voiced understanding. Scripts Hydrocodone/Acetaminophen (Hydrocodone-Acetamin 5-325 mg) 1 Each Tablet 1 TAB PO Q4H PRN for PAIN-MODERATE (5-7), #10 TAB Prov: MILA MAIER APRN 09/10/20 Acyclovir (Acyclovir) 400 Mg Tablet 400 MG PO 5XD, #35 TAB Prov: MILA MAIER APRN 09/10/20 Work/School Note: Work Release Form Date Seen in the Emergency Department: Sep 10, 2020 Return to Work: Sep 12, 2020 MILA MAIER APRN Sep 10, 2020 12:11
[2020-09-10] MEDS ORDERED: ACYCLOVIR SUSP 40 MG/ML 5ML UDC PO SCH (12:15)
[2020-09-10] MEDS ORDERED: ANTACID SUSP 30 ML UDC (MYLANTA) PO ONE (12:15)
[2020-09-10] MEDS ORDERED: HYDROcodone/APAP 5 MG/325 MG (LORTAB) TAB PO ONE (12:15)
[2020-09-10] MEDS ORDERED: LIDOCAINE 2% VISCOUS 15 ML UDC PO ONE (12:15)
[2020-09-10] MEDS ORDERED: ACYCLOVIR 400 MG TABLET (ZOVIRAX) PO SCH (12:30)
[2020-09-10 12:45] VITALS: BP 167/109
== END 2020-09-10 12:45 | disposition home or self-care (01) ==
LOC: EDUNIT# 11:26 → ER 11:28
DX: B00.2 Herpesviral gingivostomatitis and pharyngotonsillitis (principal); F17.210 Nicotine dependence, cigarettes, uncomplicated
CPT/HCPCS: 99283

== ENCOUNTER 2021-09-04 11:14 | Emergency (ER) | payer MEDICAID ==
[~2021-09-04] VITALS: Ht 160 cm; Wt 86.1 kg
[~2021-09-04 11:14] MED LIST changes: +ACHD5005 PO; +ACYC400T21 PO; +DOXY-311 PO; -DOXY100C42 PO
--- NOTE | 2021-09-04 11:53 | ED Lower Extremity ---
General Chief Complaint: Lower Extremity Stated Complaint: R FOOT PAIN / INJ Nursing Triage Note: PT AMB TO FT1 WITH COMPLAINT OF RIGHT HEEL PAIN. STATES STARTED A FEW DAYS AGO AFTER SHE GOT OUT OF BED AND STEPPED ON FOOT. DENIES INJURY. STATES HAS PAIN IN HER HEEL, OUTER FOOT, AND PAIN THAT SHOOTS UP HER LEG. Source: patient Exam Limitations: no limitations (SAL HARO MED STUDENT) History of Present Illness Date Seen by Provider: Sep 04, 2021 Time Seen by Provider: 11:40 Initial Comments Mrs. Rooney is a 46yo female that presents today due to RLE pain. She states she had no significant PMH and does not take any medication daily. She is a 1/2 PPD smoker. States that on thursday morning she woke up with pain in her R foot. Pain is in the heel/back of the foot and radiates up into the calf. She states the pain feels like a mix between sharp, burning, and electric type pain. Rates it about a 9. She has never really had pain like this before. No trauma or other inciting events that she can think of. Other than some minor swelling she denies any other symptoms. Has tried some tylenol which didn't help much for pain. Walking on it makes it worse. (SAL HARO MED STUDENT) Initial Comments Barber has an unusual presentation of pain as there was no identifiable trigger or trauma. The pain and tenderness starts at approximately the posterior half of the plantar heel surface and extends up through the Achilles region and the lateral ankle. It is sensitive even to light touch in some places. Distal exam is unremarkable. Pain sometimes shoots up the lateral leg beyond the knee. She has had similar pains but to a lesser extent of the left foot for up to 10 years. She has no history of diabetes or neuropathy. Hmdw-fof-ayamrmo pain medications have not improved the pain. (VINCENZO MANRIQUE MD) Allergies and Home Medications Allergies Coded Allergies: No Known Drug Allergies (Unverified , 05/17/18) Patient Home Medication List Home Medication List Reviewed: Yes (VINCENZO MANRIQUE MD) Acyclovir (Acyclovir) 400 Mg Tablet, 400 MG PO 5XD Prescribed by: MILA MAIER on 09/10/20 1211 Benzonatate (Tessalon Perles) 100 Mg Capsule, 1-2 TAB PO TID Prescribed by: PRESTON DALEY on 05/18/18108 Doxycycline Monohydrate (Doxycycline Monohydrate) 100 Mg Capsule, 100 MG PO BID Prescribed by: PRESTON DALEY on 05/18/18108 Gabapentin (Neurontin) 300 Mg Capsule, 300 MG PO TID PRN for PAIN-BREAKTHROUGH Prescribed by: VINCENZO MARQUEZ on 09/04/21 1311 Guaifenesin/Dextromethorphan (Mucinex Dm ER 1,200-60 mg Tab) 1 Each Tbmp.12hr, 1 EACH PO BID Prescribed by: PRESTON DALEY on 05/18/18108 Hydrocodone/Acetaminophen (Hydrocodone-Acetamin 5-325 mg) 1 Each Tablet, 1 TAB PO Q4H PRN for PAIN-MODERATE (5-7) Prescribed by: MILA MAIER on 09/10/20 1211 Review of Systems Constitutional: No chills, No fever EENTM: No hearing loss, No vision loss Respiratory: No cough, No short of breath, No wheezing Cardiovascular: No chest pain, No palpitations Gastrointestinal: No abdominal pain, No constipation, No diarrhea, No nausea, No vomiting Genitourinary: No dysuria, No hematuria Musculoskeletal: No joint pain, No joint swelling Skin: No lesions, No rash Psychiatric/Neurological: Denies Headache, Denies Numbness (SAL HARO [email or web address] STUDENT) Past Knckufx-Pouyrj-Jsvhgr Hx Patient Social History Tobacco Use?: Yes Smoking Status: Current Everyday Smoker Use of E-Cig and/or Vaping dev: No Substance use?: No Alcohol Use?: No Pt feels they are or have been: No (SAL HARO [email or web address] STUDENT) Immunizations Up To Date Tetanus Booster (TDap): Unknown (GRISEL HAROVimodi STUDENT) Seasonal Allergies Seasonal Allergies: Yes (ESTRELLITAGRISEL YODERVimodi STUDENT) Past Medical History Surgeries: Yes Adenoidectomy, Tonsillectomy Respiratory: No Cardiac: No Neurological: No Reproductive Disorders: No Female Reproductive Disorders: Denies Genitourinary: No Gastrointestinal: No Musculoskeletal: No Endocrine: No HEENT: No Cancer: No Psychosocial: No Integumentary: No Blood Disorders: No (SAL HARO [email or web address] STUDENT) Physical Exam Vital Signs Vital Signs - First Documented 09/04/21 11:21 Pulse 61 Resp 17 B/P (MAP) 164/92 (116) Pulse Ox 95 O2 Delivery Room Air (VINCENZO MANRIQUE MD) Vital Signs Capillary Refill : Less Than 3 Seconds (SAL HARO MED STUDENT) Height, Weight, BMI Height: 5'3.00" Weight: 190lbs. 0oz. 86.112329ki; 33.00 BMI Method:Stated General Appearance: WD/WN, no apparent distress HEENT: PERRL/EOMI, pharynx normal Cardiovascular: normal peripheral pulses, regular rate, rhythm, no edema, no murmur Respiratory: chest non-tender, lungs clear, normal breath sounds Gastrointestinal: normal bowel sounds, non tender, soft Feet: bilateral foot other (Both feet are examined side by side. There is no noticable swelling noted in the R foot. There is no redness, swelling, or erythema of the R foot. Sensation and strength is normal in both feet bilarterally. She does state there is some pain with foot dorsiflexion. There is pain in the heel and calcaneal region on palpation. There is also pain on the medial and lateral metatarsal heads of the big and little toe respectively. ) Neurologic/Tendon: normal sensation, normal motor functions Neurologic/Psychiatric: alert, normal mood/affect, oriented x 3 Skin: normal color, warm/dry (SAL HARO MED STUDENT) Progress/Results/Core Measures Results/Orders Lab Results Laboratory Tests Test 09/04/21 13:00 Range/Units Glucometer 93 70-110 MG/DL (VINCENZO MANRIUQE MD) My Orders Orders - VINCENZO MANRIQUE MD Gabapentin Capsule/Tablet (Neurontin Cap (09/04/21 13:15) (VINCENZO MANRIQUE MD) Medications Given in ED Current Medications Medications Dose Ordered Sig/Kd Route Start Time Stop Time Status Last Admin Dose Admin Gabapentin 300 mg ONCE ONCE PO 09/04/21 13:15 09/04/21 13:16 DC 09/04/21 13:19 300 MG (VINCENZO MANRIQUE MD) Vital Signs/I&O 09/04/21 09/04/21 11:21 13:20 Pulse 61 61 Resp 17 17 B/P (MAP) 164/92 (116) 152/88 Pulse Ox 95 95 O2 Delivery Room Air Room Air (VINCENZO MANRIQUE MD) Blood Pressure Mean: 116 Progress Progress Note : Progress Note Pain is suspicious for neuropathic syndrome. She denies any back pain but this type of pain could be radicular in nature. Work-up for the future could include labs for deficiencies, MRI of the lumbar spine, EMG studies, etc. None of these studies would be possible in the emergency room today. Because the pain appeared neuropathic in nature, she was given a dose of gabapentin followed by prescription. Close follow-up with her primary care was recommended. (VINCENZO MANRIQUE MD) Departure Impression Primary Impression: Pain of right lower extremity Disposition: HOME, SELF-CARE Condition: Stable Departure-Patient Inst. Referrals: [facility] (PCP/Family) Primary Care Physician ESTHER SKINNER DPM Patient Instructions: Peripheral Neuropathy Add. Discharge Instructions: The exact cause of your pain is on certain but it could be related to neuropathy. Neuropathy could be caused by a variety of conditions such as diabetes. You could also have radiculopathy which is nerve pain related to compression or impingement of a nerve at the level of the spine or the nerve roots exiting the spine. Try gabapentin as prescribed to treat this pain. Please use with caution as it may cause drowsiness in some people. Follow-up with a primary care provider and/or a photographic enlarger operator as soon as possible for further evaluation. In the meantime, wear well cushioned supportive footwear. Gabapentin may safely be used with Tylenol and/or ibuprofen. Return to care if you have worsening symptoms despite following of these instructions. Call with questions or concerns. All discharge instructions reviewed with patient and/or family. Voiced understanding. Scripts Gabapentin (Neurontin) 300 Mg Capsule 300 MG PO TID PRN for PAIN-BREAKTHROUGH, #15 CAP Prov: VINCENZO MANRIQUE MD 09/04/21 Medical Student Attestation and Attending Note: I have personally interviewed and examined this patient along with Sal Haro, MS 4. I have reviewed student documentation including history, physical, and assessments. I agree with the documentation except where otherwise noted. Exam: General: Alert, oriented, no acute distress, well developed HEENT: Normocephalic and atraumatic Extremities: Right foot normal to inspection. Capillary refill and sensation normal in the toes. Normal pedal pulse. Tenderness in the distribution as described in HPI. Normal range of motion. No evidence of trauma. Neuropsych: Alert, oriented, no focal deficits Skin: Warm and dry without rashes (VINCENZO MANRIQUE MD) Copy Copies To 1: REUBEN KESSLER DEREK MED STUDENT Sep 04, 2021 11:53 VINCENZO MANRIQUE MD Sep 04, 2021 13:09
[2021-09-04] MEDS ORDERED: GABA300C PO (13:11)
[2021-09-04] MEDS ORDERED: GABAPENTIN 300 MG (NEURONTIN) CAP PO ONE (13:15)
[2021-09-04 13:20] VITALS: BP 152/88
== END 2021-09-04 13:20 | disposition home or self-care (01) ==
LOC: EDUNIT# 11:14 → ER 11:16
DX: M79.661 Pain in right lower leg (principal); F17.210 Nicotine dependence, cigarettes, uncomplicated
CPT/HCPCS: 82947; 99283

== ENCOUNTER 2022-05-16 11:25 | Emergency (ER) | payer MEDICAID ==
[~2022-05-16] VITALS: Ht 160.1 cm; Wt 81.8 kg
[~2022-05-16 11:25] MED LIST changes: -DOXY-311 PO; +DOXY-444 PO; +GABA300C PO
--- NOTE | 2022-05-16 11:44 | ED Cough/URI ---
General Chief Complaint: Cough/Cold/Flu Symptoms Stated Complaint: FLU-LIKE SYMPTOMS | COUGHING UP BLOOD Nursing Triage Note: Pt states she has been sick for 5 days, cough, congestion, states she now has back pain that wraps around her left side/chest. states intermittent fever, has been taking mucinex and nyquil Source: patient Exam Limitations: no limitations History of Present Illness Date Seen by Provider: May 16, 2022 Time Seen by Provider: 11:34 Initial Comments 46-year-old female presents emerged department today for cough, left-sided chest and rib pain. She states "I felt like I had the flu a week." She has intermittent episodes of being hot and chills, cold sweats. Also has diffuse body aches. She had a cough productive of some brownish sputum which she thinks may have been tinged with blood. She states her at home has been sick as well. She been taking Mucinex and NyQuil without much relief. Pain in her chest, rib region is in her parascapular region and radiates around to her anterior left chest wall. It is worse with palpation. Allergies and Home Medications Allergies Coded Allergies: No Known Drug Allergies (Unverified , 05/17/18) Patient Home Medication List Home Medication List Reviewed: Yes Acyclovir (Acyclovir) 400 Mg Tablet, 400 MG PO 5XD Prescribed by: MILA MAIER on 09/10/20 1211 Benzonatate (Tessalon Perles) 100 Mg Capsule, 1-2 TAB PO TID Prescribed by: PRESTON DALEY on 05/18/18 010 Doxycycline Monohydrate (Doxycycline Monohydrate) 100 Mg Capsule, 100 MG PO BID Prescribed by: PRESTON DALEY on 05/18/18 010 Gabapentin (Neurontin) 300 Mg Capsule, 300 MG PO TID PRN for PAIN-BREAKTHROUGH Prescribed by: VINCENZO MARQUEZ on 09/04/21 1311 Guaifenesin/Dextromethorphan (Mucinex Dm ER 1,200-60 mg Tab) 1 Each Tbmp.12hr, 1 EACH PO BID Prescribed by: PRESTON DALEY on 05/18/18 010 Hydrocodone/Acetaminophen (Hydrocodone-Acetamin 5-325 mg) 1 Each Tablet, 1 TAB PO Q4H PRN for PAIN-MODERATE (5-7) Prescribed by: MILA MAIER on 09/10/20 1211 Review of Systems Review of Systems Constitutional: no symptoms reported EENTM: nose congestion Respiratory: cough Cardiovascular: chest pain Gastrointestinal: no symptoms reported Genitourinary: no symptoms reported Musculoskeletal: no symptoms reported Skin: no symptoms reported Psychiatric/Neurological: No Symptoms Reported Hematologic/Lymphatic: No Symptoms Reported Immunological/Allergic: no symptoms reported Past Fwhqzbe-Wtnwsi-Iatibx Hx Patient Social History Tobacco Use?: Yes Tobacco type used: Cigarettes Smoking Status: Current Everyday Smoker Substance use?: No Alcohol Use?: Yes Alcohol Frequency: Several times a month Immunizations Up To Date Tetanus Booster (TDap): Unknown Influenza Vaccine Up-to-Date: No; Not Current Seasonal Allergies Seasonal Allergies: Yes Past Medical History Surgeries: Yes Adenoidectomy, Tonsillectomy Respiratory: No Cardiac: No Neurological: No Reproductive Disorders: No Female Reproductive Disorders: Denies Genitourinary: No Gastrointestinal: No Musculoskeletal: No Endocrine: No HEENT: No Cancer: No Psychosocial: No Integumentary: No Blood Disorders: No Family Medical History Reviewed Nursing Family Hx No Pertinent Family Hx Physical Exam Vital Signs - First Documented 05/16/22 11:29 Temp 36.7 Pulse 112 Resp 20 B/P (MAP) 95/64 (74) Pulse Ox 95 O2 Delivery Room Air Capillary Refill : Less Than 3 Seconds Height: 5'3.00" Weight: 190lbs. 0oz. 86.205420an; 31.00 BMI Method:Stated General Appearance: WD/WN, no apparent distress HEENT: normal ENT inspection, pharynx normal Neck: non-tender, supple, normal inspection Respiratory: no respiratory distress, no accessory muscle use, rhonchi, other (Tenderness palpation parascapular left anterior chest wall. No crepitus or deformity.) Cardiovascular: regular rate, rhythm, no edema, no gallop, no JVD, no murmur Gastrointestinal: normal bowel sounds, non tender, soft, no organomegaly Extremities: normal range of motion, normal inspection, no pedal edema, normal capillary refill Neurologic/Psychiatric: alert, normal mood/affect, oriented x 3 Skin: normal color, warm/dry Progress/Results/Core Measures Suspected Sepsis SIRS Temperature: Pulse: 112 Respiratory Rate: 20 Blood Pressure 95 /64 Mean: 74 Results/Orders My Orders Orders - SERGKIRK ROMERO DO Chest 1 View, Ap/Pa Only (05/16/22 11:41) Vital Signs/I&O 05/16/22 11:29 Temp 36.7 Pulse 112 Resp 20 B/P (MAP) 95/64 (74) Pulse Ox 95 O2 Delivery Room Air Capillary Refill : Less Than 3 Seconds Blood Pressure Mean: 74 Departure Communication (Admissions) Patient is hemodynamically stable. Has an obvious pneumonia in her left upper lung on chest x-ray. This is likely the cause of her pain. She is given antibiotics and discharged in stable condition with supportive care, strict return precautions. No evidence for pulmonary embolus and low risk for this. No evidence for ACS. Impression Primary Impression: Community acquired pneumonia Qualified Codes: J18.9 - Pneumonia, unspecified organism Disposition: HOME, SELF-CARE Condition: Stable Departure-Patient Inst. Referrals: [facility] (PCP/Family) Primary Care Physician Patient Instructions: Community-Acquired Pneumonia in Adults Add. Discharge Instructions: Take the antibiotics as prescribed until they are gone. You do have a pneumonia in your left upper lung which should improve with the antibiotics in the next 48 hours or so. Return to the emergency department for any severe concerns. Follow-up with your primary doctor for any nonemergent needs All discharge instructions reviewed with patient and/or family. Voiced understanding. Scripts Ciprofloxacin HCl (Ciprofloxacin HCl) 500 Mg Tablet 500 MG PO BID for 7 Days, #14 TAB Prov: KIRK ULRICH DO 05/16/22 KIRK ULRICH DO May 16, 2022 11:44
[2022-05-16] MEDS ORDERED: CIPR500T5 PO (11:57)
--- NOTE | 2022-05-16 12:02 | Diagnostic Imaging Report ---
CHEST 1 VIEW, AP/PA ONLY INDICATION: Cough. COMPARISON: 05/18/2018. FINDINGS: Left upper lobe rounded consolidation is present. No pleural effusion or pneumothorax. Normal heart size. IMPRESSION: 1. Left upper lobe rounded consolidation is most likely due to pneumonia based on clinical symptoms. 2. Recommend follow-up PA and lateral chest radiograph after appropriate antibiotic therapy to ensure resolution and exclude underlying neoplasm. Dictated by: Dictated on workstation # [id number]
[2022-05-16 12:21] VITALS: BP 136/94
== END 2022-05-16 12:22 | disposition home or self-care (01) ==
LOC: EDUNIT# 11:25 → ER 11:27
DX: J18.9 Pneumonia, unspecified organism (principal); F17.210 Nicotine dependence, cigarettes, uncomplicated; Z28.311 Partially vaccinated for COVID-19
CPT/HCPCS: 71045

== ENCOUNTER 2022-05-18 10:32 | Observation (INO) | payer MEDICAID ==
[~2022-05-18] VITALS: Ht 160 cm; Wt 89.8 kg
[~2022-05-18 10:32] MED LIST changes: +CIPR500T5 PO
--- NOTE | 2022-05-18 10:41 | ED Chest Pain ---
General Chief Complaint: Chest Wall Stated Complaint: SOA Source: patient Exam Limitations: no limitations (LISA BIRMINGHAM MD) History of Present Illness Date Seen by Provider: May 18, 2022 Time Seen by Provider: 11: Timing/Duration: 1 week Severity/Quality: severe Location: central Modifying Factors: worse with coughing ASA po GROUND WORKER: No NTG SL GROUND WORKER: No Associated Symptoms: fever/chills, shortness of breath (LISA BIRMINGHAM MD) Initial Comments 46 yo female diagnosed with CAP on thursday. Pt says that she has continued to feel worse since thursday. Only improvement is that sputum is now green instead of bloody. States that she is still SOB and her left scapular pain has now radiated to her ribs. Has associated nausea, CARTWRIGHT and fatigue. She says she has taken her abx as indicated and Ibuprofen with last dose last night. Has not eaten for one week, only meal has been some soup yesterday. Has been staying hydrated. Denies any CP. No other complaints. (DIEGO SMALLWOOD) Allergies and Home Medications Allergies Coded Allergies: No Known Drug Allergies (Unverified , 05/17/18) Patient Home Medication List Home Medication List Reviewed: Yes (LISA BIRMINGHAM MD) Home Medication List Reviewed: Yes (DIEGO SMALLWOOD) Ciprofloxacin HCl (Ciprofloxacin HCl) 500 Mg Tablet, 500 MG PO BID, (Reported) Entered as Reported by: MARY MARIE on 05/19/221211 Last Action: Reviewed Discontinued Medications Acyclovir (Acyclovir) 400 Mg Tablet, 400 MG PO 5XD Discontinued Reason: No Longer Taking Prescribed by: MILA MAIER on 09/10/20 1211 Last Action: Discontinued Benzonatate (Tessalon Perles) 100 Mg Capsule, 1-2 TAB PO TID Discontinued Reason: No Longer Taking Prescribed by: PRESTON DALEY on 05/18/18108 Last Action: Discontinued Ciprofloxacin HCl (Ciprofloxacin HCl) 500 Mg Tablet, 500 MG PO BID Discontinued Reason: No Longer Taking Prescribed by: KIRK ULRICH MD on 05/16/22 1157 Last Action: Discontinued Doxycycline Monohydrate (Doxycycline Monohydrate) 100 Mg Capsule, 100 MG PO BID Discontinued Reason: No Longer Taking Prescribed by: PRESTON DALEY on 05/18/18108 Last Action: Discontinued Gabapentin (Neurontin) 300 Mg Capsule, 300 MG PO TID PRN for PAIN-BREAKTHROUGH Discontinued Reason: No Longer Taking Prescribed by: VINCENZO MARQUEZ on 09/04/21 1311 Last Action: Discontinued Guaifenesin/Dextromethorphan (Mucinex Dm ER 1,200-60 mg Tab) 1 Each Tbmp.12hr, 1 EACH PO BID Discontinued Reason: No Longer Taking Prescribed by: PRESTON DALEY on 05/18/18108 Last Action: Discontinued Hydrocodone/Acetaminophen (Hydrocodone-Acetamin 5-325 mg) 1 Each Tablet, 1 TAB PO Q4H PRN for PAIN-MODERATE (5-7) Discontinued Reason: No Longer Taking Prescribed by: MILA MAIER on 09/10/20 1211 Last Action: Discontinued Review of Systems Review of Systems Constitutional: No chills, No diaphoresis, No dizziness, No fever; malaise EENTM: No Symptoms Reported Respiratory: Cough, Shortness of Air Cardiovascular: Denies Chest Pain, Denies Irregular Heart Rate, Denies Lightheadedness Genitourinary: No Symptoms Reported Musculoskeletal: muscle pain (Left Scapular ) Skin: no symptoms reported Psychiatric/Neurological: No Symptoms Reported Endocrine: No Symptoms Reported Hematologic/Lymphatic: No Symptoms Reported (DIEGO SMALLWOOD) Past Owoxyhp-Qeryqe-Ghkcdt Hx Patient Social History Tobacco Use?: Yes Tobacco type used: Cigarettes Smoking Status: Current Everyday Smoker Substance use?: No Alcohol Use?: Yes Alcohol type: Hard Liquor Alcohol Frequency: Once in a while Pt feels they are or have been: No (LISA BIRMINGHAM MD) Tobacco Use?: Yes Smoking Status: Current Everyday Smoker (DIEGO SMALLWOOD) Immunizations Up To Date Tetanus Booster (TDap): Unknown Influenza Vaccine Up-to-Date: No; Not Current First/Initial COVID19 Vaccinat: J AND J (LISA BIRMINGHAM MD) Seasonal Allergies Seasonal Allergies: Yes (LISA BIRMINGHAM MD) Past Medical History Surgery/Hospitalization HX: NONE Surgeries: Yes Adenoidectomy, Tonsillectomy Respiratory: No Cardiac: No Neurological: No Reproductive Disorders: No Female Reproductive Disorders: Denies Genitourinary: No Gastrointestinal: No Musculoskeletal: No Endocrine: No HEENT: No Cancer: No Psychosocial: No Integumentary: No Blood Disorders: No (LISA BIRMINGHAM MD) Family Medical History No Pertinent Family Hx (LISA BIRMINGHAM MD) Physical Exam Vital Signs Vital Signs - First Documented 05/18/22 05/18/22 10:35 10:38 Temp 35.8 Pulse 106 Resp 24 B/P (MAP) 117/75 (89) Pulse Ox 93 O2 Delivery Room Air (DIEGO SMALLWOOD) Vital Signs Capillary Refill : (LISA BIRMINGHAM MD) Height, Weight, BMI Height: 5'3.00" Weight: 190lbs. 0oz. 86.759870gb; 31.00 BMI Method:Stated (LISA BIRMINGHAM MD) General Appearance: No Apparent Distress, WD/WN HEENT: PERRL/EOMI, TMs Normal, Normal ENT Inspection, Pharynx Normal Neck: Full Range of Motion, Normal Inspection, Non Tender, Supple Respiratory: Chest Non Tender, No Accessory Muscle Use, No Respiratory Distress, Rhonci Cardiovascular: Regular Rate, Rhythm, No Edema, No Gallop, No JVD, No Murmur, Normal Peripheral Pulses Gastrointestinal: Normal Bowel Sounds, No Organomegaly, No Pulsatile Mass, Non Tender, Soft Extremity: Normal Capillary Refill, Normal Inspection, Normal Range of Motion, Non Tender, No Calf Tenderness Neurologic/Psychiatric: Alert, Oriented x3, No Motor/Sensory Deficits, Normal Mood/Affect, entry level administrative assistant II-XII Norm as Tested Skin: Normal Color, Warm/Dry Lymphatic: No Adenopathy (DIEGO SMALLWOOD) Focused Exam Lactate Level 05/18/22 11:49: (DIEGO SMALLWOOD) Lactic Acid Level Laboratory Tests Test 05/18/22 11:49 (DIEGO SMALLWOOD) Progress/Results/Core Measures Results/Orders Lab Results Laboratory Tests Test 05/18/22 10:40 05/18/22 11:49 Range/Units White Blood Count 12.0 H 4.3-11.0 10^3/uL Red Blood Count 4.48 3.80-5.11 10^6/uL Hemoglobin 14.2 11.5-16.0 g/dL Hematocrit 40 35-52 % Mean Corpuscular Volume 90 80-99 fL Mean Corpuscular Hemoglobin 32 25-34 pg Mean Corpuscular Hemoglobin Concent 35 32-36 g/dL Red Cell Distribution Width 13.2 10.0-14.5 % Platelet Count 163 130-400 10^3/uL Mean Platelet Volume 13.0 H 9.0-12.2 fL Immature Granulocyte % (Auto) 1 % Neutrophils (%) (Auto) 85 H 42-75 % Lymphocytes (%) (Auto) 9 L 12-44 % Monocytes (%) (Auto) 5 0-12 % Eosinophils (%) (Auto) 0 0-10 % Basophils (%) (Auto) 0 0-10 % Neutrophils # (Auto) 10.2 H 1.8-7.8 10^3/uL Lymphocytes # (Auto) 1.1 1.0-4.0 10^3/uL Monocytes # (Auto) 0.6 0.0-1.0 10^3/uL Eosinophils # (Auto) 0.0 0.0-0.3 10^3/uL Basophils # (Auto) 0.1 0.0-0.1 10^3/uL Immature Granulocyte # (Auto) 0.1 0.0-0.1 10^3/uL (DIEGO SMALLWOOD) Vital Signs/I&O 05/18/22 05/18/22 10:35 10:38 Temp 35.8 Pulse 106 Resp 24 B/P (MAP) 117/75 (89) Pulse Ox 93 O2 Delivery Room Air (DIEGO SMALLWOOD) Progress Progress Note : Progress Note Patient seen and examined, 46-year-old female presents for worsening cough, shortness of breath and left-sided chest pain. I have reviewed and agree with the medical student's documentation. Findings, progressive airspace consolidation in the left lower lung. Worsening symptoms. Failed outpatient antibiotic therapy. Requiring a little oxygen supplementation and pain control. Findings concerning for worsening pneumonia. Will admit for IV antibiotics. (LISA BIRMINGHAM MD) Initial ECG Impression Date: May 18, 2022 Initial ECG Impression Time: 10:48 Initial ECG Rate: 107 Initial ECG Rhythm: S.Tach Initial ECG Intervals OR 116 QRS 110 QTc 401 Initial ECG Impression: Atrial Fibrillation w/RVR (no ectopy; no ST change) (LISA BIRMINGHAM MD) Diagnostic Imaging Diagonstic Imaging: Xray Plain Films/CT/US/NM/MRI: chest Comments [facility]. [place], [place] NAME: HEIDI BENNETT [facility] REC#: [id number] PT STATUS: REG ER : 1975 PHYSICIAN: LISA BIRMINGHAM MD ADMIT DATE: 05/18/22/ER Draft Date of Exam:05/18/22 CHEST 1 VIEW, AP/PA ONLY INDICATION: Shortness of breath and chest pain. Cough. COMPARISON: 05/16/2022. FINDINGS: The rounded region of consolidation within the left lung appears more prominent. This suggests progressive pneumonia. As previously stated, this will however require follow-up to exclude the possibility of an underlying mass. The right lung is clear. There is no significant pleural fluid. There is no pneumothorax. Heart size is normal. IMPRESSION: Progressive airspace consolidation within the left lung, likely reflecting increasing consolidation related to pneumonia. As previously stated, this will require follow-up to complete resolution to exclude an underlying lung mass. Dictated on workstation # [id number] Dict: 05/18/22 1206 Trans: 05/18/22 1214 [id number] Interpreted by: SANDRA GORMAN MD Electronically signed by: (LISA BIRMINGHAM MD) Departure Communication (Admissions) Time/Spoke to Admitting Phy: 12:[address] Velázquez; IP to CSD; fluids, cefepime and azithro; pot replacement (LISA BIRMINGHAM MD) Impression Primary Impression: Community acquired pneumonia Qualified Codes: J18.9 - Pneumonia, unspecified organism Additional Impressions: Hypokalemia Acute kidney injury Dehydration Disposition: ADMITTED INPATIENT Condition: Stable Admissions Decision to Admit Reason: Admit from ER (General) Decision to Admit/Date: May 18, 2022 Time/Decision to Admit Time: 12:30 (LISA BIRMINGHAM MD) Departure-Patient Inst. Referrals: [facility] (PCP/Family) Primary Care Physician Verification and Attestation of Medical Student E/M Service A medical student performed and documented this service in my presence. I re viewed and verified all information documented by the medical student and made modifications to such information, when appropriate. I personally performed the physical exam and medical decision making. Lisa Birmingham, May 18, 2022,12:31 (LISA BIRMINGHAM MD) LISA BIRMINGHAM MD May 18, 2022 10:41 DIEGO SMALLWOOD May 18, 2022 11:20
[2022-05-18 11:44] LABS: BASOPHILS # (AUTO) 0.1 10^3/uL (0.0-0.1); BASOPHILS % (AUTO) 0 % (0-10); EOSINOPHILS % (AUTO) 0 % (0-10); HEMATOCRIT 40 % (35-52); HEMOGLOBIN 14.2 g/dL (11.5-16.0); LYMPHOCYTES # (AUTO) 1.1 10^3/uL (1.0-4.0); LYMPHOCYTES % (AUTO) 9 % (12-44); MEAN CORPUSCULAR HEMOGLOBIN 32 pg (25-34); MEAN CORPUSCULAR HGB CONC 35 g/dL (32-36); MEAN CORPUSCULAR VOLUME 90 fL (80-99); MONOCYTES # (AUTO) 0.6 10^3/uL (0.0-1.0); MONOCYTES % (AUTO) 5 % (0-12); NEUTROPHILS # (AUTO) 10.2 10^3/uL (1.8-7.8); NEUTROPHILS % (AUTO) 85 % (42-75); PLATELET COUNT 163 10^3/uL (130-400)
[2022-05-18] MEDS ORDERED: NS IV 1000 ML 1,000 ML IV STA (11:49)
[2022-05-18 11:51] LABS: PROTHROMBIN TIME PATIENT 13.8 SEC (12.2-14.7)
[2022-05-18 11:57] LABS: ALBUMIN 3.6 GM/DL (3.2-4.5); BILIRUBIN,TOTAL 0.6 MG/DL (0.1-1.0); CALCIUM 9.1 MG/DL (8.5-10.1); CREATININE SERUM 2.09 MG/DL (0.60-1.30); POTASSIUM 2.9 MMOL/L (3.6-5.0); TOTAL PROTEIN 7.4 GM/DL (6.4-8.2)
[2022-05-18] MEDS ORDERED: cefTRIAXone 1 GM PRE-MIX 50 ML IV ONE (12:00)
[2022-05-18] MEDS ORDERED: AZITHROMYCIN INJECTION 500 MG in NS (IVPB) 250 ML IV ONE (12:00)
[2022-05-18] MEDS ORDERED: KETOROLAC 30 MG/ML VIAL IVP ONE (12:15)
--- NOTE | 2022-05-18 12:15 | Diagnostic Imaging Report ---
INDICATION: Shortness of breath and chest pain. Cough. COMPARISON: 05/16/2022. FINDINGS: The rounded region of consolidation within the left lung appears more prominent. This suggests progressive pneumonia. As previously stated, this will however require follow-up to exclude the possibility of an underlying mass. The right lung is clear. There is no significant pleural fluid. There is no pneumothorax. Heart size is normal. IMPRESSION: Progressive airspace consolidation within the left lung, likely reflecting increasing consolidation related to pneumonia. As previously stated, this will require follow-up to complete resolution to exclude an underlying lung mass. Dictated by: Dictated on workstation # [id number]
[2022-05-18] MEDS ORDERED: CEFEPIME INJECTION 1,000 MG in NS (IVPB) 50 ML IV ONE (12:30)
[2022-05-18] MEDS ORDERED: LACTULOSE SYRUP 10GM/15ML (ENULOSE) 30ML UDC PO PRN (13:45)
[2022-05-18] MEDS ORDERED: MILK OF MAGNESIA 400 MG/5 ML 30 ML UDC PO PRN (13:45)
[2022-05-18] MEDS ORDERED: ACETAMINOPHEN 325 MG TABLET PO PRN (13:45)
[2022-05-18] MEDS ORDERED: ONDANSETRON 4 MG (ZOFRAN) ORAL DISSOLVE TAB PO PRN (13:45)
[2022-05-18] MEDS ORDERED: polyethylene glycoL POWDER 17 GM (MIRALAX) PACK PO PRN (13:45)
[2022-05-18] MEDS ORDERED: ALPRAZolam 0.25 MG (XANAX) TAB PO PRN (13:45)
[2022-05-18] MEDS ORDERED: ANTACID SUSP 30 ML UDC (MYLANTA) PO PRN (13:45)
[2022-05-18] MEDS ORDERED: CALCIUM CARBONATE 500 MG (TUMS) TAB.CHEW PO PRN (13:45)
[2022-05-18] MEDS ORDERED: KCL 10 MEQ TAB (MICRO K) PO ONE (13:45)
[2022-05-18] MEDS ORDERED: ONDANSETRON 4 MG/2 ML (SDV) Z0FRAN IV PRN (13:45)
[2022-05-18] MEDS ORDERED: diphenhydrAMINE 25 MG TAB (BENADRYL) PO PRN (13:45)
[2022-05-18] MEDS ORDERED: diphenhydrAMINE 50 MG/ML INJ (BENADRYL) IVP PRN (13:45)
[2022-05-18] MEDS ORDERED: MELATONIN 3 MG TABLET PO PRN (13:45)
[2022-05-18] MEDS ORDERED: BISACODYL 10 MG SUPP (DULCOLAX) PR PRN (13:45)
[2022-05-18] MEDS: LACTATED RINGERS 1,000 ML IV SCH ×2 (13:58→18:41)
[2022-05-18 14:00] VITALS: BP 125/97
[2022-05-18 14:12] VITALS: BP 117/75
[2022-05-18] MEDS: NS IV 1000 ML 1,000 ML IV SCH ×2 (14:13→21:39)
[2022-05-18] MEDS ORDERED: FLU QUADRIvalent (6 months+) 60 mcg/0.5 ml 2022-23 (Fluzone) IM ONE (14:45)
[2022-05-18 16:00] VITALS: BP 109/63
[2022-05-18] MEDS: RT-ALBUTEROL SULF 2.5 MG/3 ML PRE-MIX VIAL INH SCH ×2 (16:12→18:55)
[2022-05-18] MEDS ORDERED: RT-ALBUTEROL SULF 2.5 MG/3 ML PRE-MIX VIAL INH PRN (17:00)
[2022-05-18 19:48] VITALS: BP 97/62
[2022-05-18] MEDS: DOCUSATE SODIUM 100 MG (COLACE) CAP PO SCH (19:56)
[2022-05-18] MEDS: KCL 10 MEQ TAB (MICRO K) PO SCH (19:56)
[2022-05-18] MEDS: SENNOSIDES 8.6 MG (SENOKOT) TAB PO SCH (19:56)
[2022-05-18] MEDS ORDERED: CEFEPIME 1,000 MG/NS 50 ML IVPB IV SCH ×2 (21:00)
[2022-05-18] MEDS ORDERED: CEFEPIME INJECTION 2,000 MG in NS (IVPB) 50 ML IV SCH (21:00)
[2022-05-18 23:50] VITALS: BP 104/67
[2022-05-19] VITALS (7 sets, daily range): BP systolic 101–116; BP diastolic 56–72
[2022-05-19] MEDS: LACTATED RINGERS 1,000 ML IV SCH ×3 (02:09→07:33)
[2022-05-19] MEDS: NS IV 1000 ML 1,000 ML IV SCH (05:43)
[2022-05-19 06:16] LABS: BASOPHILS % (AUTO) 0 % (0-10); EOSINOPHILS # (AUTO) 0.1 10^3/uL (0.0-0.3); EOSINOPHILS % (AUTO) 1 % (0-10); HEMATOCRIT 33 % (35-52); HEMOGLOBIN 11.6 g/dL (11.5-16.0); LYMPHOCYTES # (AUTO) 1.5 10^3/uL (1.0-4.0); LYMPHOCYTES % (AUTO) 15 % (12-44); MEAN CORPUSCULAR HEMOGLOBIN 32 pg (25-34); MEAN CORPUSCULAR HGB CONC 35 g/dL (32-36); MEAN CORPUSCULAR VOLUME 91 fL (80-99); MEAN PLATELET VOLUME 12.4 fL (9.0-12.2); MONOCYTES % (AUTO) 10 % (0-12); NEUTROPHILS # (AUTO) 6.9 10^3/uL (1.8-7.8); NEUTROPHILS % (AUTO) 72 % (42-75); PLATELET COUNT 160 10^3/uL (130-400); WHITE BLOOD COUNT 9.6 10^3/uL (4.3-11.0)
[2022-05-19 06:39] LABS: ALBUMIN 2.8 GM/DL (3.2-4.5); BILIRUBIN,TOTAL 0.8 MG/DL (0.1-1.0); CREATININE SERUM 0.77 MG/DL (0.60-1.30); POTASSIUM 2.9 MMOL/L (3.6-5.0); TOTAL PROTEIN 5.7 GM/DL (6.4-8.2)
[2022-05-19] MEDS ORDERED: MAGNESIUM 1 GM/100 ML IVPB 100 ML IV ONE ×2 (06:45→06:55)
[2022-05-19] MEDS: RT-ALBUTEROL SULF 2.5 MG/3 ML PRE-MIX VIAL INH SCH (06:55)
[2022-05-19] MEDS: SENNOSIDES 8.6 MG (SENOKOT) TAB PO SCH ×2 (07:33→19:37)
[2022-05-19] MEDS: DOCUSATE SODIUM 100 MG (COLACE) CAP PO SCH ×2 (07:34→19:37)
[2022-05-19] MEDS ORDERED: AZITHROMYCIN INJECTION 500 MG in NS (IVPB) 250 ML IV SCH (09:00)
[2022-05-19] MEDS: CEFEPIME 1,000 MG/NS 50 ML IVPB IV SCH ×6 (09:33→20:25)
[2022-05-19] MEDS: KCL 10 MEQ TAB (MICRO K) PO SCH ×2 (09:33→19:36)
[2022-05-19] MEDS: POTASSIUM CL 10MEQ/50ML IVPB 50 ML IV SCH ×2 (11:17→13:01)
[2022-05-19] MEDS ORDERED: CIPR500T5 PO (12:12)
--- NOTE | 2022-05-19 13:01 | Short Stay Summary-Hospitalist ---
[facility]01: History of Present Illness HPI/Chief Complaint Barber is a 46 y WF who presented to the ED on 05/16/22 and was diagnosed with CAP and started on cipro outpatient. She returned to the ED on 05/18/22 due to worsening symptoms of SOB, rib pain, fatigue. The rib pain is left sided and worse with coughing. She tested positive for Influenza A on 05/18/22 and was admitted for IV fluids, cefepime and azithromycin were started for pneumonia. CXR on 05/18/22 revealed progressive airspace consolidation within the left lung, likely reflecting increasing consolidation related to pneumonia. Today she is feeling improved though still with coughing and left side pain. Source: patient Exam Limitations: no limitations Date Seen 05/19/22 Time Seen by a Provider: 09:40 Attending Physician [facility] PCP Admitting Physician: Kathy Velázquez DO Attending Physician: Kathy Velázquez DO Referring Physician Date of Admission May 18, 2022 at 12:28 Home Medications & Allergies Home Medications Reviewed patient Home Medication Reconciliation performed by pharmacy medication reconciliations guitar repair technician and/or nursing. Patients Allergies have been reviewed. Allergies Allergies Coded Allergies No Known Drug Allergies (Kyotaxyobi83/10/18) Past Medical/Social/Family Hx Patient Social History Tobacco Use?: Yes Tobacco type used: Cigarettes Smoking Status: Current Everyday Smoker Substance use?: No Alcohol Use?: Yes Alcohol type: Hard Liquor Additional alcohol type: couple times a week Alcohol Frequency: Couple times a week Pt stated abuse/neglect: No Immunizations Up To Date Influenza Vaccine Up-to-Date: No; Not Current First/Initial COVID19 Vaccinat: J AND J Tetanus Booster (TDap): Unknown Current Status status: Yes status: No Advance Directives: No Communicates: Verbally Primary Language: Serbian Preferred Spoken Language: Serbian Is interpretation needed?: No Implanted or Applied Medical D: None Review of Systems Constitutional: No chills, No diaphoresis EENTM: No nose congestion, No throat pain Respiratory: cough, phlegm Cardiovascular: No chest pain Gastrointestinal: No abdominal pain Genitourinary: No decreased output, No dysuria Musculoskeletal: other (left side lower rib pain) Psychiatric/Neurological: Denies Headache Physical Exam Physical Exam Vital Signs Vital Signs - First Documented 12/04/2905/18/22 05/18/22 05/18/22 10:35 10:38 14:12 16:12 Temp 35.8 Pulse 106 Resp 24 B/P (MAP) 117/75 (89) Pulse Ox 93 O2 Delivery Room Air O2 Flow Rate 0.00 FiO2 21 Capillary Refill : Height, Weight, BMI Height: 5'3.00" Weight: 190lbs. 0oz. 86.943712iq; 35.07 BMI Method:Stated General Appearance: No Apparent Distress, WD/WN HEENT: PERRL/EOMI, Pharynx Normal Neck: Full Range of Motion, Non Tender, Supple Respiratory: Chest Non Tender, No Accessory Muscle Use, No Respiratory Distress, Rhonci (scattered) Cardiovascular: Regular Rate, Rhythm, No Edema, No Gallop, No JVD, No Murmur, Normal Peripheral Pulses Gastrointestinal: Normal Bowel Sounds, Non Tender, Soft Extremity: Normal Capillary Refill, Normal Range of Motion, Non Tender, No Calf Tenderness Neurologic/Psychiatric: Alert, Oriented x3, No Motor/Sensory Deficits, Normal Mood/Affect Skin: Normal Color, Warm/Dry Lymphatic: No Adenopathy Results Results/Procedures Labs Laboratory Tests 05/18/22 10:40 05/19/22 05:55 Patient resulted labs reviewed. Imaging: Reviewed Imaging Report Short Stay Diagnosis Discharge Diagnosis-Short Stay Admission Diagnosis CAP Final Discharge Diagnosis CAP Hypokalemia Acute kidney injury Dehydration Current smoker Conclusion Plan Cefepime and azithromycin K replacement Discontinue IV fluids after K replacement complete Move to 4th floor given improved status and exam Ambulate Clinical Quality Measures AMI/AHF: ASA po Prior to arrival: KATHY Patrick DO 05/20/22 0502: Supervisory-Addendum Brief Verification & Attestation Participated in pt care: history, MDM, physical Personally performed: exam, history, MDM, supervision of care Care discussed with: Medical Student Procedures: n/a Results interpretation: Verified all documentation Verification and Attestation of Medical Student E/M Service A medical student performed and documented this service in my presence. I reviewed and verified all information documented by the medical student and made modifications to such information, when appropriate. I personally performed the physical exam and medical decision making. Kathy Velázquez May 20, 2022,05:02 FREDDIE SALAZAR May 19, 2022 13:01 KATHY VELÁZQUEZ DO May 20, 2022 05:02
[2022-05-20] MEDS: CEFEPIME 1,000 MG/NS 50 ML IVPB IV SCH ×8 (02:55→20:47)
[2022-05-20 03:04] VITALS: BP 104/57
[2022-05-20 06:02] LABS: BASOPHILS # (AUTO) 0.1 10^3/uL (0.0-0.1); BASOPHILS % (AUTO) 1 % (0-10); EOSINOPHILS # (AUTO) 0.1 10^3/uL (0.0-0.3); EOSINOPHILS % (AUTO) 1 % (0-10); HEMATOCRIT 33 % (35-52); HEMOGLOBIN 11.4 g/dL (11.5-16.0); LYMPHOCYTES % (AUTO) 19 % (12-44); MEAN CORPUSCULAR HEMOGLOBIN 31 pg (25-34); MEAN CORPUSCULAR HGB CONC 34 g/dL (32-36); MEAN CORPUSCULAR VOLUME 92 fL (80-99); MEAN PLATELET VOLUME 11.8 fL (9.0-12.2); MONOCYTES # (AUTO) 1.6 10^3/uL (0.0-1.0); MONOCYTES % (AUTO) 16 % (0-12); NEUTROPHILS # (AUTO) 5.8 10^3/uL (1.8-7.8); NEUTROPHILS % (AUTO) 55 % (42-75); PLATELET COUNT 194 10^3/uL (130-400); WHITE BLOOD COUNT 10.5 10^3/uL (4.3-11.0)
[2022-05-20 06:33] LABS: ALBUMIN 2.8 GM/DL (3.2-4.5); BILIRUBIN,TOTAL 2.3 MG/DL (0.1-1.0); CREATININE SERUM 0.59 MG/DL (0.60-1.30); POTASSIUM 2.9 MMOL/L (3.6-5.0); TOTAL PROTEIN 5.9 GM/DL (6.4-8.2)
[2022-05-20 06:59] LABS: CALCIUM 8.5 MG/DL (8.5-10.1)
[2022-05-20 07:42] VITALS: BP 120/77
[2022-05-20] MEDS: SENNOSIDES 8.6 MG (SENOKOT) TAB PO SCH ×2 (09:15→20:46)
[2022-05-20] MEDS: KCL 10 MEQ TAB (MICRO K) PO SCH ×2 (09:15→20:46)
[2022-05-20] MEDS: AZITHROMYCIN 250 MG TAB (ZITHROMAX) PO SCH (09:15)
[2022-05-20] MEDS: DOCUSATE SODIUM 100 MG (COLACE) CAP PO SCH ×2 (09:15→20:46)
[2022-05-20] MEDS ORDERED: CATHETER FLUSH 10 ML SYR IV PRN (11:00)
[2022-05-20] MEDS ORDERED: NS 100 ML (IVPB) BAG IV ONE (11:00)
[2022-05-20] MEDS ORDERED: IOHEXOL 350 MG/ML 100 ML (OMNIPAQUE 350) VIAL IV ONE (11:00)
[2022-05-20] MEDS ORDERED: HOLD METFORMIN - RECEIVED CONTRAST 20 ML VIAL IV SCH (11:00)
--- NOTE | 2022-05-20 11:00 | Progress Note - Hospitalist ---
[facility] 1100: Subjective HPI/CC On Admission Barber is a 46 y WF who presented to the ED on 05/16/22 and was diagnosed with CAP and started on cipro outpatient. She returned to the ED on 05/18/22 due to worsening symptoms of SOB, rib pain, fatigue. The rib pain is left sided and worse with coughing. She tested positive for Influenza A on 05/18/22 and was admitted for IV fluids, cefepime and azithromycin were started for pneumonia. CXR on 05/18/22 revealed progressive airspace consolidation within the left lung, likely reflecting increasing consolidation related to pneumonia. Subjective/Events-last exam Today pt reports a worsening productive cough. She also continues to have left side pain that is up to a 10/10 in severity when she is coughing or moving, at rest a 0/10. She has not had a BM but is urinating without issue and passing gas. Pt is using her incentive spirometer and ambulating. Her LFTs and BR were elevated today. Repeat CXR today revealed no change in left upper lobe consolidation patchy left basilar opacities. CTA chest today revealed: 1: There are confluent and patchy areas of consolidation involving both lungs with the left upper lobe affected the most. There are associated areas of cavitation within the larger areas of consolidation seen in the bilateral upper lobes and superior segment of the left lower lobe. These findings are concerning for an infectious process. 2: There is a small left pleural effusion. 3: There is cholelithiasis and choledocholithiasis. There are numerous stones seen throughout the gallbladder and common duct and common bile duct. There is no inflammation adjacent to the gallbladder or common duct. There are no intrahepatic ductal dilation. The common hepatic duct measures 11 mm. General Surgery consultation is suggested. 4: There is no evidence pulmonary embolism or thoracic aortic aneurysm or dissection. Review of Systems Pulmonary: Cough Cardiovascular: No: Chest Pain Gastrointestinal: No: Nausea, Vomiting, Abdominal Pain Genitourinary: No Dysuria, No Frequency Musculoskeletal: other (left side pain) Focused Exam Lactate Level 05/18/22 11:49: Lactic Acid Level 1.44 Objective Exam Vital Signs Vital Signs Date Time Temp Pulse Resp B/P (MAP) Pulse Ox O2 Delivery O2 Flow Rate FiO2 05/20/22 11:25 36.4 92 18 108/59 (75) 94 Room Air 05/20/22 03:04 2.00 12/11/22 14:12 21 Capillary Refill : General Appearance: No Apparent Distress, WD/WN, Other (coughing) HEENT: PERRL/EOMI, Moist Mucous Membranes Neck: Non Tender, Supple Respiratory: Chest Non Tender, No Accessory Muscle Use, No Respiratory Distress, Crackles, Rhonci (scattered) Cardiovascular: Regular Rate, Rhythm, No Edema, No Gallop, No JVD, No Murmur, Normal Peripheral Pulses Gastrointestinal: Normal Bowel Sounds, Non Tender, Soft Back: Other (left side voluntary guarding) Extremity: Normal Capillary Refill, Non Tender, No Calf Tenderness, No Pedal Edema Neurologic/Psychiatric: Alert, Oriented x3, No Motor/Sensory Deficits, Normal Mood/Affect Skin: Normal Color, Warm/Dry Results/Procedures Lab Laboratory Tests 05/20/22 05:24 Patient resulted labs reviewed. Imaging: Reviewed Imaging Report Assessment/Plan Assessment and Plan Assess & Plan/Chief Complaint CAP Hypokalemia Acute kidney injury Dehydration Current smoker Left side pain Transaminitis Cholelithiasis/Choledocholithiasis Cefepime and azithromycin Continue K replacement Ambulating Repeat CXR was obtained, unchanged CTA chest c/w infectious process Consult General Surgery as an outpatient regarding cholelithiasis Clinical Quality Measures AMI/AHF: ASA po Prior to arrival: Ana IRENE MABRY 05/21/22 0433: Subjective HPI/CC On Admission Date Seen by Provider: May 20, 2022 Time Seen by Provider: 09:00 Subjective/Events-last exam Patient getting more complicated Elevated liver enzymes Updated Dr. Moncada who will see tomorrow and will get an ultrasound CT scan noted Review of Systems Pulmonary: Cough Objective Exam General Appearance: No Apparent Distress, WD/WN, Chronically ill Respiratory: Crackles, Rhonci (scattered) Cardiovascular: Regular Rate, Rhythm Neurologic/Psychiatric: Alert, Oriented x3 Assessment/Plan Assessment and Plan Assess & Plan/Chief Complaint Consulted Dr. Moncada Abdominal ultrasound Supportive care Supervisory-Addendum Brief Verification & Attestation Participated in pt care: history, MDM, physical Personally performed: exam, history, MDM, supervision of care Care discussed with: Medical Student Procedures: n/a Results interpretation: Verified all documentation Verification and Attestation of Medical Student E/M Service A medical student performed and documented this service in my presence. I reviewed and verified all information documented by the medical student and made modifications to such information, when appropriate. I personally performed the physical exam and medical decision making. Irene Mabry, May 21, 2022,04:32 FREDDIE SALAZAR May 20, 2022 11:00 IRENE MABRY DO May 21, 2022 04:33
--- NOTE | 2022-05-20 11:10 | Diagnostic Imaging Report ---
CHEST 1 VIEW, AP/PA ONLY Indication: Pneumonia. Comparison: 05/18/2022 Findings: Left upper lobe confluent consolidations are similar. Patchy consolidations in the left lung base are unchanged. No pleural effusion or pneumothorax. Normal heart size. Impression: 1. No change in left upper lobe consolidation patchy left basilar opacities. 2. Continued follow-up to resolution is advised. Dictated by: Dictated on workstation # [id number]
[2022-05-20 11:25] VITALS: BP 108/59
--- NOTE | 2022-05-20 12:45 | Diagnostic Imaging Report ---
CLINICAL INDICATION: History of acute kidney injury, pneumonia, and shortness of air. EXAM: CT angiogram of the chest performed with 75 cc Omnipaque 350 IV contrast. Coronal and oblique MIP images of the vasculature were created to better evaluate anatomy. Auto Exposure Controls were utilized during the CT exam to meet ALARA standards for radiation dose reduction. COMPARISON: Chest x-ray dated 05/18/2018. FINDINGS: There are multiple prominent cystic/cavitary areas involving the left upper lobe with confluent scattered areas of consolidation and ground-glass opacification. There are also areas of consolidation with central multicystic changes in the superior segment of the left lower lobe and inferior aspect of the right upper lobe and lingular regions. There is consolidation and ground-glass opacification involving the posterior aspect of the left lower lobe. There is a small left pleural effusion. There is mediastinal and bilateral hilar lymphadenopathy. Prominent marker lymph node in the left AP window region laterally measures 2.4 cm x 1.4 cm in AP x transverse dimensions. There is no axillary lymphadenopathy. There is no thoracic aortic aneurysm or dissection. There is no evidence of pulmonary embolism. There is no pneumothorax. The extrathoracic soft tissues are unremarkable. There are numerous small stones within the gallbladder. Gallbladder is decompressed. There is no gallbladder wall thickening or pericholecystic fluid. There are multiple stones also seen within the common hepatic duct extending all the way to the common bile duct. The common hepatic duct measures 11 mm in greatest dimension. The remainder of the upper abdominal structures are unremarkable. There are degenerative spurs involving the spine. IMPRESSION: 1: There are confluent and patchy areas of consolidation involving both lungs with the left upper lobe affected the most. There are associated areas of cavitation within the larger areas of consolidation seen in the bilateral upper lobes and superior segment of the left lower lobe. These findings are concerning for an infectious process. 2: There is a small left pleural effusion. 3: There is cholelithiasis and choledocholithiasis. There are numerous stones seen throughout the gallbladder and common duct and common bile duct. There is no inflammation adjacent to the gallbladder or common duct. There are no intrahepatic ductal dilation. The common hepatic duct measures 11 mm. General Surgery consultation is suggested. 4: There is no evidence pulmonary embolism or thoracic aortic aneurysm or dissection. Dictated by: Dictated on workstation # [id number]
[2022-05-20 16:00] VITALS: BP 113/72
[2022-05-20 19:53] VITALS: BP 112/74
[2022-05-20 23:28] VITALS: BP 101/54
[2022-05-21] VITALS (8 sets, daily range): BP systolic 102–122; BP diastolic 54–62
[2022-05-21] MEDS: LACTATED RINGERS 1,000 ML IV SCH ×3 (00:13→20:05)
[2022-05-21] MEDS: CEFEPIME 1,000 MG/NS 50 ML IVPB IV SCH ×8 (03:18→20:01)
[2022-05-21] MEDS: HYDROmorphone 2 MG/ML VIAL (DILAUDID) IV PRN ×5 (03:57→20:01)
[2022-05-21 06:23] LABS: BASOPHILS # (AUTO) 0.1 10^3/uL (0.0-0.1); BASOPHILS % (AUTO) 1 % (0-10); EOSINOPHILS % (AUTO) 0 % (0-10); HEMATOCRIT 32 % (35-52); HEMOGLOBIN 11.1 g/dL (11.5-16.0); LYMPHOCYTES # (AUTO) 2.2 10^3/uL (1.0-4.0); LYMPHOCYTES % (AUTO) 18 % (12-44); MEAN CORPUSCULAR HEMOGLOBIN 32 pg (25-34); MEAN CORPUSCULAR HGB CONC 35 g/dL (32-36); MEAN CORPUSCULAR VOLUME 92 fL (80-99); MEAN PLATELET VOLUME 11.6 fL (9.0-12.2); MONOCYTES # (AUTO) 1.3 10^3/uL (0.0-1.0); MONOCYTES % (AUTO) 11 % (0-12); NEUTROPHILS # (AUTO) 6.5 10^3/uL (1.8-7.8); NEUTROPHILS % (AUTO) 54 % (42-75); PLATELET COUNT 218 10^3/uL (130-400); WHITE BLOOD COUNT 12.1 10^3/uL (4.3-11.0)
[2022-05-21 06:24] LABS: SMEAR SCAN COMMENT YES
[2022-05-21 06:47] LABS: ALBUMIN 2.7 GM/DL (3.2-4.5); BILIRUBIN,DIRECT 1.5 MG/DL (0.0-0.3); BILIRUBIN,TOTAL 2.2 MG/DL (0.1-1.0); CALCIUM 8.6 MG/DL (8.5-10.1); CREATININE SERUM 0.54 MG/DL (0.60-1.30); POTASSIUM 2.7 MMOL/L (3.6-5.0); TOTAL PROTEIN 5.9 GM/DL (6.4-8.2)
[2022-05-21 06:51] LABS: ATYPICAL LYMPHOCYTES 1 %; BAND NEUTROPHILS 4 %; EOSINOPHILS % (MANUAL) 2 %; LYMPHOCYTES % (MANUAL) 17 %; METAMYELOCYTES % 2 %; MONOCYTES % (MANUAL) 11 %; MYELOCYTES % 3 %; NEUTROPHILS % (MANUAL) 60 %; NUCLEATED RED BLOOD CELLS 1; RBC MORPH NORMAL
--- NOTE | 2022-05-21 07:32 | Consultation - Surgery ---
LALA ADAMS 05/21/22 0732: History of Present Illness History of Present Illness Patient Consulted On(simone/time) 05/21/22 07:19 Date Seen by Provider: May 21, 2022 Time Seen by Provider: 07:00 History of Present Illness Eduarda Rooney is a 46yo pt with past medical history of pneumonia and PATY who presents with CAP, Influenza A, and left sided pain. Pt originally presented to the Ed on 05/16/22 and was dx with CAP and sent home with outpatient medications. Pt presented back to Ed 05/18/22 for worsening symptoms of SOA, left scapular pain radiating to ribs, and associated nausea, CARTWRIGHT, and fatigue. 05/18/22 CXR showed consolidation with in left lung related to pneumonia. At this time she also stated that she hasn't eaten in a week, but was staying hydrated. 05/18/22 pt also tested positive for Influenza A, and was started on IV fluids, Cefepime and Azithromycin for CAP. Yesterday cough with left sided pain rated at 10/10 that was worse with coughing or moving. Pain was 0/10 at rest. At that time pt didn't have bowel movement. Repeat CXR was ordered w/o any change to left upper lobe. CT Angio and Chest indicated due to history of acute kidney injury, pneumonia, and SOA showed cavitation w/in consolidation in b/l upper lobes and superior segment of left lower lobe concerning of infectious process. Small left pleural effusions, Cholelithiasis and Choledocholithias. Surgery was consulted due to the finding of Cholelithiasis and Choledocholithias with a Common hepatic duct of 11mm. There was no evidence of pulmonary embolism or thoracic aorta aneurysm or dissection. Today, Pt currently has constant LUQ pain that began Thursday. States moving and coughing makes pain a 8/10. Pain medications decreases burden of pain, but pain at rest with medication is still 5/10. When pt coughs she states that it feels like the LUQ is going to explode. Pt's current condition is associated with fever, cough, SOA, and wheezing, but pt denies chills, chest pain, swelling of extremities, and back pain. Allergies and Home Medications Allergies Coded Allergies: No Known Drug Allergies (Unverified , 05/17/18) Patient Home Medication List Ciprofloxacin HCl (Ciprofloxacin HCl) 500 Mg Tablet, 500 MG PO BID, (Reported) Entered as Reported by: MARY MARIE on 05/19/221211 Last Action: Reviewed Discontinued Medications Acyclovir (Acyclovir) 400 Mg Tablet, 400 MG PO 5XD Discontinued Reason: No Longer Taking Prescribed by: MILA MAIER on 09/10/201210 Last Action: Discontinued Benzonatate (Tessalon Perles) 100 Mg Capsule, 1-2 TAB PO TID Discontinued Reason: No Longer Taking Prescribed by: PRESTON DALEY on 05/18/18108 Last Action: Discontinued Ciprofloxacin HCl (Ciprofloxacin HCl) 500 Mg Tablet, 500 MG PO BID Discontinued Reason: No Longer Taking Prescribed by: KIRK ULRICH MD on 05/16/22 1157 Last Action: Discontinued Doxycycline Monohydrate (Doxycycline Monohydrate) 100 Mg Capsule, 100 MG PO BID Discontinued Reason: No Longer Taking Prescribed by: PRESTON DALEY on 05/18/18108 Last Action: Discontinued Gabapentin (Neurontin) 300 Mg Capsule, 300 MG PO TID PRN for PAIN-BREAKTHROUGH Discontinued Reason: No Longer Taking Prescribed by: VINCENZO MARQUEZ on 09/04/21 1311 Last Action: Discontinued Guaifenesin/Dextromethorphan (Mucinex Dm ER 1,200-60 mg Tab) 1 Each Tbmp.12hr, 1 EACH PO BID Discontinued Reason: No Longer Taking Prescribed by: PRESTON DALEY on 05/18/18108 Last Action: Discontinued Hydrocodone/Acetaminophen (Hydrocodone-Acetamin 5-325 mg) 1 Each Tablet, 1 TAB PO Q4H PRN for PAIN-MODERATE (5-7) Discontinued Reason: No Longer Taking Prescribed by: MILA MAIER on 09/10/201210 Last Action: Discontinued Past Hjrfbwr-Jxqgjv-Hhapbj Hx Patient Social History Drug of Choice: METH, THC, DENIES IV USE Smoking Status: Current Everyday Smoker Type Used: Cigarettes 2nd Hand Smoke Exposure: Yes Recent Hopitalizations: No Alcohol Use?: Yes Have you traveled recently?: No Immunizations Up To Date Tetanus Booster (TDap): Unknown Seasonal Allergies Seasonal Allergies: Yes Surgeries History of Surgeries: Yes Surgeries: Adenoidectomy, Tonsillectomy Respiratory History of Respiratory Disorde: No Cardiovascular History of Cardiac Disorders: No Neurological History of Neurological Disord: No Reproductive System Hx Reproductive Disorders: No Female Reproductive Disorders: Denies Genitourinary History of Genitourinary Disor: No Gastrointestinal History of Gastrointestinal Di: No Musculoskeletal History of Musculoskeletal Dis: No Endocrine History of Endocrine Disorders: No HEENT History of HEENT Disorders: No Cancer History of Cancer: No Psychosocial History of Psychiatric Problem: No Integumentary History of Skin or Integumenta: No Blood Transfusions History of Blood Disorders: No Family Medical History Significant Family History: No Pertinent Family Hx Review of Systems-General Constitutional: No chills; fever Respiratory: cough, dyspnea on exertion, short of breath, wheezing Cardiovascular: No chest pain, No edema, No palpitations Gastrointestinal: No RUQ; LUQ Genitourinary: No decreased output, No dysuria Musculoskeletal: No back pain Skin: No change in color, No change in hair/nails Psychiatric/Neurological: Headache, Weakness Physical Exam-General Problems Physical Exam Vital Signs Vital Signs - First Documented 05/18/22 05/18/22 05/18/22 05/18/22 10:35 10:38 14:12 16:12 Temp 35.8 Pulse 106 Resp 24 B/P (MAP) 117/75 (89) Pulse Ox 93 O2 Delivery Room Air O2 Flow Rate 0.00 FiO2 21 Capillary Refill : General Appearance: no apparent distress, obese HEENT: PERRL/EOMI Neck: non-tender, supple Respiratory: chest non-tender, decreased breath sounds, crackles, wheezing Cardiovascular: regular rate, rhythm, no edema, no gallop, no murmur Peripheral Pulses: 2+ Radial Pulses (R), 2+ Radial Pulses (L) Gastrointestinal: normal bowel sounds, tenderness (LUQ tenderness worse with cough and movement ) Rectal: deferred Extremities: normal range of motion, non-tender Skin: normal color, warm/dry Data Review Labs Laboratory Tests 05/21/22 05:50: White Blood Count 12.1H, Red Blood Count 3.48L, Hemoglobin 11.1L, Hematocrit 32L , Mean Corpuscular Volume 92, Mean Corpuscular Hemoglobin 32, Mean Corpuscular Hemoglobin Concent 35, Red Cell Distribution Width 13.6, Platelet Count 218, Mean Platelet Volume 11.6, Immature Granulocyte % (Auto) 16, Neutrophils (%) (Auto) 54, Lymphocytes (%) (Auto) 18, Monocytes (%) (Auto) 11, Eosinophils (%) (Auto) 0, Basophils (%) (Auto) 1, Neutrophils # (Auto) 6.5, Lymphocytes # (Auto) 2.2, Monocytes # (Auto) 1.3H, Eosinophils # (Auto) 0.0, Basophils # (Auto) 0.1, Immature Granulocyte # (Auto) 1.9H, Neutrophils % (Manual) 60, Lymphocytes % (Manual) 17, Monocytes % (Manual) 11, Eosinophils % (Manual) 2, Metamyelocytes % 2, Myelocytes % 3, Band Neutrophils 4, Nucleated Red Blood Cells 1, Atypical Lymphocytes 1, Blood Morphology Comment NORMAL, Sodium Level 134L, Potassium Level 2.7L, Chloride Level 98, Carbon Dioxide Level 26, Anion Gap 10, Blood Urea Nitrogen 7, Creatinine 0.54L, Estimat Glomerular Filtration Rate 116, BUN/Creatinine Ratio 13, Glucose Level 102, Calcium Level 8.6, Corrected Calcium 9.6, Total Bilirubin 2.2H, Direct Bilirubin 1.5H, Aspartate Amino Transf (AST/SGOT) 50H, Alanine Aminotransferase (ALT/SGPT) 75H, Alkaline Phosphatase 168H, Total Protein 5.9L, Albumin 2.7L, Smear Scan YES Microbiology 05/18/22 Blood Culture - Preliminary, Resulted No growth Radiology CTA Chest - 05/20/22 IMPRESSION: 1: There are confluent and patchy areas of consolidation involving both lungs with the left upper lobe affected the most. There are associated areas of cavitation within the larger areas of consolidation seen in the bilateral upper lobes and superior segment of the left lower lobe. These findings are concerning for an infectious process. 2: There is a small left pleural effusion. 3: There is cholelithiasis and choledocholithiasis. There are numerous stones seen throughout the gallbladder and common duct and common bile duct. There is no inflammation adjacent to the gallbladder or common duct. There are no intrahepatic ductal dilation. The common hepatic duct measures 11 mm. General Surgery consultation is suggested. 4: There is no evidence pulmonary embolism or thoracic aortic aneurysm or dissection. CHEST 1 VIEW, AP/PA ONLY 05/20/22 Impression: 1. No change in left upper lobe consolidation patchy left basilar opacities. 2. Continued follow-up to resolution is advised. CHEST 1 VIEW, AP/PA ONLY 05/18/22 IMPRESSION: Progressive airspace consolidation within the left lung, likely reflecting increasing consolidation related to pneumonia. As previously stated, this will require follow-up to complete resolution to exclude an underlying lung mass. Assessment/Plan Assessment/Plan Assessment/Plan Assessment: 1) Cholelithiasis and Choledocholithiasis secondary to Gallstones 2) Left Upper Quadrant Pain 3) Pneumonia and Influenza A Plan: 1) RUQ Ultrasound and f/u outpatient for Cholelithiasis and Choledocholithiasis. 2) PT and OT order to increase activity and mobility 3) Incentive Spirometer to prevent worsening pnemonia 4) Continue to monitor billirubin and LFTs 5) Continue Cefepime and azithromycin Clinical Quality Measures AMI/AHF: ASA po Prior to arrival: FRANCO Olsen DO 05/21/22 1718: History of Present Illness History of Present Illness History of Present Illness 46 year old female admitted for left pneumonia, influenza a. Having left sided abdominal pain. Pain rated 8/10 at worse. Worse with coughing and moving. Resting makes better that she states is about 5/10. Having some shortness of air at times. CT angio chest 1:There are confluent and patchy areas of consolidation involving both lungs with the left upper lobe affected the most. There are associated areas of cavitation within the larger areas of consolidation seen in the bilateral upper lobes and superior segment of the left lower lobe. These findings are concerning for an infectious process. 2: There is a small left pleural effusion. 3: There is cholelithiasis and choledocholithiasis. There are numerous stones seen throughout the gallbladder and common duct and common bile duct. There is no inflammation adjacent to the gallbladder or common duct. There are no intrahepatic ductal dilation. The common hepatic duct measures 11 mm. General Surgery consultation is suggested. 4: There is no evidence pulmonary embolism or thoracic aortic aneurysm or dissection. Allergies and Home Medications Allergies Coded Allergies: No Known Drug Allergies (Unverified , 05/17/18) Patient Home Medication List Home Medication List Reviewed: Yes Ciprofloxacin HCl (Ciprofloxacin HCl) 500 Mg Tablet, 500 MG PO BID, (Reported) Entered as Reported by: MARY MARIE on 05/19/22 1212 Last Action: Reviewed Discontinued Medications Acyclovir (Acyclovir) 400 Mg Tablet, 400 MG PO 5XD Discontinued Reason: No Longer Taking Prescribed by: MILA MAIER on 09/10/20 1211 Last Action: Discontinued Benzonatate (Tessalon Perles) 100 Mg Capsule, 1-2 TAB PO TID Discontinued Reason: No Longer Taking Prescribed by: PRESTON DALEY on 05/18/18108 Last Action: Discontinued Ciprofloxacin HCl (Ciprofloxacin HCl) 500 Mg Tablet, 500 MG PO BID Discontinued Reason: No Longer Taking Prescribed by: KIRK ULRICH MD on 05/16/22 1157 Last Action: Discontinued Doxycycline Monohydrate (Doxycycline Monohydrate) 100 Mg Capsule, 100 MG PO BID Discontinued Reason: No Longer Taking Prescribed by: PRESTON DALEY on 05/18/18108 Last Action: Discontinued Gabapentin (Neurontin) 300 Mg Capsule, 300 MG PO TID PRN for PAIN-BREAKTHROUGH Discontinued Reason: No Longer Taking Prescribed by: VINCENZO MARQUEZ on 09/04/21 1311 Last Action: Discontinued Guaifenesin/Dextromethorphan (Mucinex Dm ER 1,200-60 mg Tab) 1 Each Tbmp.12hr, 1 EACH PO BID Discontinued Reason: No Longer Taking Prescribed by: PRESTON DALEY on 05/18/18108 Last Action: Discontinued Hydrocodone/Acetaminophen (Hydrocodone-Acetamin 5-325 mg) 1 Each Tablet, 1 TAB PO Q4H PRN for PAIN-MODERATE (5-7) Discontinued Reason: No Longer Taking Prescribed by: MILA MAIER on 09/10/20 1211 Last Action: Discontinued Past Gyqcnaj-Dsqtgv-Nbnbwk Hx Reviewed Nursing Assessment Reviewed/Agree w Nursing PMH: Yes Family Medical History Significant Family History: No Pertinent Family Hx Review of Systems-General Constitutional: No chills; fever EENTM: No blurred vision, No double vision Respiratory: cough, dyspnea on exertion, short of breath Cardiovascular: No edema, No palpitations Gastrointestinal: LUQ, abdominal pain (LUQ) Genitourinary: No decreased output Musculoskeletal: No back pain Skin: No change in color, No change in hair/nails Psychiatric/Neurological: Denies Anxiety, Denies Depressed, Denies Emotional Problems All Other Systems Reviewed Negative Unless Noted: Yes (Negative excepted noted.) Physical Exam-General Problems Physical Exam General Appearance: no apparent distress, obese HEENT: PERRL/EOMI, normal ENT inspection Neck: non-tender Respiratory: chest non-tender, no respiratory distress, no accessory muscle use Cardiovascular: regular rate, rhythm, no JVD Gastrointestinal: soft, tenderness (LUQ tenderness minimal on exam) Rectal: deferred Back: no CVA tenderness, no vertebral tenderness Extremities: non-tender, normal inspection Neurologic/Psychiatric: alert, normal mood/affect, oriented x 3 Skin: normal color, warm/dry Lymphatic: no adenopathy Assessment/Plan Assessment/Plan Assessment/Plan Cholelithiasis and Choledocholithiasis secondary to Gallstones Left Upper Quadrant Pain Pneumonia and Influenza A repeat labs in am continue abx if labs not improving needs ERCP to clear duct and would require transfer Supervisory-Addendum Brief Verification & Attestation Participated in pt care: history, MDM, physical Personally performed: exam, history, MDM, supervision of care Care discussed with: Medical Student Procedures: n/a Results interpretation: Verified all documentation Verification and Attestation of Medical Student E/M Service A medical student performed and documented this service in my presence. I reviewed and verified all information documented by the medical student and made modifications to such information, when appropriate. I personally performed the physical exam and medical decision making. Franco Rock, May 21, 2022,17:22 LALA ADAMS May 21, 2022 07:32 FRANCO ROCK DO May 21, 2022 17:18
[2022-05-21] MEDS: DOCUSATE SODIUM 100 MG (COLACE) CAP PO SCH ×3 (09:20→20:05)
[2022-05-21] MEDS: KCL 10 MEQ TAB (MICRO K) PO SCH ×3 (09:20→20:06)
[2022-05-21] MEDS: SENNOSIDES 8.6 MG (SENOKOT) TAB PO SCH ×3 (09:20→20:06)
[2022-05-21] MEDS ORDERED: MAGNESIUM 1 GM/100 ML IVPB 100 ML IV ONE (09:30)
[2022-05-21] MEDS: POTASSIUM CL 10MEQ/50ML IVPB 50 ML IV SCH ×8 (09:31→18:55)
[2022-05-21] MEDS: AZITHROMYCIN 250 MG TAB (ZITHROMAX) PO SCH (09:31)
[2022-05-21] MEDS ORDERED: NS IV 500 ML 500 ML ONE (09:59)
--- NOTE | 2022-05-21 13:24 | Progress Note - Hospitalist ---
[facility] 1324: Subjective HPI/CC On Admission Barber is a 46 y WF who presented to the ED on 05/16/22 and was diagnosed with CAP and started on cipro outpatient. She returned to the ED on 05/18/22 due to worsening symptoms of SOB, rib pain, fatigue. The rib pain is left sided and worse with coughing. She tested positive for Influenza A on 05/18/22 and was admitted for IV fluids, cefepime and azithromycin were started for pneumonia. CXR on 05/18/22 revealed progressive airspace consolidation within the left lung, likely reflecting increasing consolidation related to pneumonia. Subjective/Events-last exam Today she reports her cough is improved and she is feeling much better. She still has the left side pain especially with coughing up to a 9/10. She is ambulating well and is using the incentive spirometer. She denies abdominal pain or issues with gallbladder in the past. General surgery was consulted and o rdered an abdominal ultrasound to further characterize the cholelithiasis. Review of Systems HEENT: No Head Aches Pulmonary: Cough (improved) Cardiovascular: No: Chest Pain Gastrointestinal: Other (left side pain) Objective Exam Vital Signs Vital Signs Date Time Temp Pulse Resp B/P (MAP) Pulse Ox O2 Delivery O2 Flow Rate FiO2 05/21/22 11:47 36.4 85 18 109/62 (78) 92 Nasal Cannula 2.00 05/18/22 14:12 21 Capillary Refill : General Appearance: No Apparent Distress, WD/WN HEENT: PERRL/EOMI, Moist Mucous Membranes Neck: Full Range of Motion, Non Tender Respiratory: Chest Non Tender, No Accessory Muscle Use, No Respiratory Distress, Rhonci, Other (coarse lung sounds throughout) Cardiovascular: Regular Rate, Rhythm, No Edema, No Gallop, No JVD, No Murmur, Normal Peripheral Pulses Gastrointestinal: Non Tender, Soft Extremity: Normal Capillary Refill Neurologic/Psychiatric: Alert, Oriented x3, No Motor/Sensory Deficits, Normal Mood/Affect Skin: Normal Color, Warm/Dry Results/Procedures Lab Laboratory Tests 05/21/22 05:50 Patient resulted labs reviewed. Imaging: Reviewed Imaging Report Assessment/Plan Assessment and Plan Assess & Plan/Chief Complaint CAP Hypokalemia Acute kidney injury Dehydration Current smoker Left side pain Transaminitis Cholelithiasis/Choledocholithiasis Continue Cefepime and azithromycin Continue K replacement, no spironolactone given hypotension Ambulating CTA chest c/w infectious process Appreciate General Surgery consult Clinical Quality Measures AMI/AHF: ASA po Prior to arrival: No KATHY MABRY DO 05/22/22 0451: Supervisory-Addendum Brief Verification & Attestation Participated in pt care: history, MDM, physical Personally performed: exam, history, MDM, supervision of care Care discussed with: Medical Student Procedures: n/a Results interpretation: Verified all documentation Verification and Attestation of Medical Student E/M Service A medical student performed and documented this service in my presence. I reviewed and verified all information documented by the medical student and made modifications to such information, when appropriate. I personally performed the physical exam and medical decision making. Kathy Mabry, May 22, 2022,04:51 FREDDIE SALAZAR May 21, 2022 13:24 KATHY MABRY DO May 22, 2022 04:51
[2022-05-21] MEDS ORDERED: RT-ALBUTEROL SULF 2.5 MG/3 ML PRE-MIX VIAL INH SCH (14:00)
--- NOTE | 2022-05-21 14:15 | Diagnostic Imaging Report ---
PROCEDURE: US Gallbladder. TECHNIQUE: Multiple Real-time grayscale images were obtained over the right upper quadrant in various projections. INDICATION: Cholelithiasis and choledocholithiasis noted on recent CT. COMPARISON: Correlation is made to the CT study from one day earlier. FINDINGS: The liver is enlarged at 19 cm. The portal vein is patent and shows normal direction of flow. The gallbladder appears to be stone filled, limiting evaluation. There is a large amount of shadowing from the gallbladder. There is a questionable stone within the common duct. No definite ductal dilatation is seen, however. The pancreas was obscured. The aorta is nonaneurysmal. The IVC is patent. The right kidney is unremarkable. There is no ascites. IMPRESSION: Cholelithiasis and probable choledocholithiasis. Evaluation of the gallbladder is limited due to the gallbladder being stone filled. If there is concern for acute cholecystitis, a Nuclear Medicine HIDA scan could be performed for further evaluation. Dictated by: Dictated on workstation # [id number]
[2022-05-21] MEDS ORDERED: RT-ALBUTEROL SULF 2.5 MG/3 ML PRE-MIX VIAL INH PRN (18:00)
[2022-05-21] MEDS: RT-ALBUTEROL SULF 2.5 MG/3 ML PRE-MIX VIAL INH SCH (20:51)
[2022-05-22] MEDS: HYDROmorphone 2 MG/ML VIAL (DILAUDID) IV PRN ×7 (00:14→16:38)
[2022-05-22] MEDS: CEFEPIME 1,000 MG/NS 50 ML IVPB IV SCH ×8 (03:07→21:36)
[2022-05-22 03:44] VITALS: BP 104/53
[2022-05-22 06:54] LABS: BASOPHILS # (AUTO) 0.1 10^3/uL (0.0-0.1); BASOPHILS % (AUTO) 1 % (0-10); EOSINOPHILS # (AUTO) 0.1 10^3/uL (0.0-0.3); EOSINOPHILS % (AUTO) 1 % (0-10); HEMATOCRIT 32 % (35-52); HEMOGLOBIN 10.8 g/dL (11.5-16.0); LYMPHOCYTES # (AUTO) 2.5 10^3/uL (1.0-4.0); LYMPHOCYTES % (AUTO) 15 % (12-44); MEAN CORPUSCULAR HEMOGLOBIN 32 pg (25-34); MEAN CORPUSCULAR HGB CONC 34 g/dL (32-36); MEAN CORPUSCULAR VOLUME 92 fL (80-99); MEAN PLATELET VOLUME 11.7 fL (9.0-12.2); MONOCYTES # (AUTO) 1.1 10^3/uL (0.0-1.0); MONOCYTES % (AUTO) 7 % (0-12); NEUTROPHILS # (AUTO) 9.7 10^3/uL (1.8-7.8); NEUTROPHILS % (AUTO) 60 % (42-75); PLATELET COUNT 221 10^3/uL (130-400); WHITE BLOOD COUNT 16.3 10^3/uL (4.3-11.0)
--- NOTE | 2022-05-22 07:10 | Progress Note - Surgery ---
LALA ADAMS 05/22/22 0710: Subjective Date Seen by a Provider: May 22, 2022 Time Seen by a Provider: 06:50 Subjective/Events-last exam Pt is overall felling better than yesterday including the left sided pain. Still has coughing fits in the morning when she wakes up, but better compared to yesterday. Currently no right sided pain. Pt states no shortness of breath and is able to ambulate without issues. Pt states she is urinating fine without any issues. Pt denies chest pain, chills, numbness and tingling. Review of Systems General: No Chills, No Night Sweats, No Fatigue Pulmonary: No Dyspnea; Cough Cardiovascular: No: Chest Pain, Palpitations Gastrointestinal: Abdominal Pain; No: Nausea, Vomiting, Diarrhea Genitourinary: No Dysuria, No Frequency, No Incontinence Neurological: No: Numbness, Incoordination Focused Exam Respiratory: Chest Non Tender, Crackles, Decreased Breath Sounds Cardiovascular: Regular Rate, Rhythm, No Edema, No Gallop, No Murmur, Normal Peripheral Pulses Peripheral Pulses: 2+ Radial Pulses (R), 2+ Radial Pulses (L) Skin: normal color, warm/dry; No ecchymosis Objective Exam Vital Signs Date Time Temp Pulse Resp B/P (MAP) Pulse Ox O2 Delivery O2 Flow Rate FiO2 05/22/22 03:44 36.4 95 18 104/53 (70) 91 Room Air 05/21/22 23:49 36.5 88 20 110/54 (72) 100 Room Air 05/21/22 20:52 90 Room Air 05/21/22 20:00 Room Air 05/21/22 19:36 36.8 97 20 122/56 (78) 92 Room Air 05/21/22 17:41 36.8 97 90 05/21/22 15:45 36.8 97 18 102/57 (72) 90 Room Air 05/21/22 14:26 90 Room Air 05/21/22 11:47 36.4 85 18 109/62 (78) 92 Nasal Cannula 2.00 05/21/22 11:07 91 Room Air 05/21/22 08:51 36.2 90 90 05/21/22 08:51 90 Room Air 0.00 05/21/22 08:31 36.2 87 18 105/59 (74) 91 Nasal Cannula 2.00 05/21/22 08:00 Room Air I & O 05/22/22 07:00 Intake Total 1300 ml Balance 1300 ml Capillary Refill : General Appearance: No Apparent Distress, WD/WN HEENT: PERRL/EOMI, Moist Mucous Membranes Neck: Full Range of Motion, Non Tender Respiratory: Chest Non Tender, No Accessory Muscle Use, No Respiratory Distress, Rhonci, Other (coarse lung sounds throughout) Cardiovascular: Regular Rate, Rhythm, No Edema, No Gallop, No JVD, No Murmur, Normal Peripheral Pulses Peripheral Pulses: 2+ Radial Pulses (R), 2+ Radial Pulses (L) Gastrointestinal: soft, tenderness (LUQ tenderness minimal on exam) Extremity: Normal Capillary Refill Neurologic/Psychiatric: Alert, Oriented x3, No Motor/Sensory Deficits, Normal Mood/Affect Skin: Normal Color, Warm/Dry Lymphatic: No Adenopathy Results Lab Laboratory Tests 05/22/22 05:56: White Blood Count 16.3H, Red Blood Count 3.42L, Hemoglobin 10.8L, Hematocrit 32L , Mean Corpuscular Volume 92, Mean Corpuscular Hemoglobin 32, Mean Corpuscular Hemoglobin Concent 34, Red Cell Distribution Width 13.8, Platelet Count 221, Mean Platelet Volume 11.7, Immature Granulocyte % (Auto) 17, Neutrophils (%) (Auto) 60, Lymphocytes (%) (Auto) 15, Monocytes (%) (Auto) 7, Eosinophils (%) (Auto) 1, Basophils (%) (Auto) 1, Neutrophils # (Auto) 9.7H, Lymphocytes # (Auto) 2.5, Monocytes # (Auto) 1.1H, Eosinophils # (Auto) 0.1, Basophils # (Auto) 0.1, Immature Granulocyte # (Auto) 2.8H Microbiology 05/18/22 Blood Culture - Preliminary, Resulted No growth Assessment/Plan Assessment/Plan Assessment/Plan Cholelithiasis and Choledocholithiasis secondary to Gallstones Left Upper Quadrant Pain Pneumonia and Influenza A Monitor and Check Labs continue abx if labs not improving needs ERCP to clear duct and would require transfer Clinical Quality Measures AMI/AHF: ASA po Prior to arrival: FRANCO Olsen DO 05/22/222035: Subjective Subjective/Events-last exam Patient feeling better today. Left side pain still present but slightly better. Breathing better than yesterday. Afebrile. Family at bedside. Denies n/v fever sweats chills or chest pain at this time. Objective Exam General Appearance: No Apparent Distress, WD/WN HEENT: PERRL/EOMI, Normal ENT Inspection Neck: Full Range of Motion, Non Tender Respiratory: Chest Non Tender, No Accessory Muscle Use, No Respiratory Distress Cardiovascular: Regular Rate, Rhythm, No JVD Gastrointestinal: soft, tenderness (LUQ tenderness minimal on exam) Extremity: Non Tender, No Calf Tenderness Neurologic/Psychiatric: Alert, Oriented x3, Normal Mood/Affect Skin: Normal Color, Warm/Dry Lymphatic: No Adenopathy Assessment/Plan Assessment/Plan Assessment/Plan cholelithiasis choledocholithiasis luq pain pneumonia/influenza a continue abx repeat labs in am including direct bili will need ercp, needed set up outpatient unless feel this is more obstructing and would need transferred eventually will need cholecystectomy as well. continue management of pneumonia Supervisory-Addendum Brief Verification & Attestation Participated in pt care: history, MDM, physical Personally performed: exam, history, MDM, supervision of care Care discussed with: Medical Student Procedures: n/a Results interpretation: Verified all documentation Verification and Attestation of Medical Student E/M Service A medical student performed and documented this service in my presence. I reviewed and verified all information documented by the medical student and made modifications to such information, when appropriate. I personally performed the physical exam and medical decision making. Franco Moncada, May 22, 2022,20:39 LALA ADAMS May 22, 2022 07:10 FRANOC MONCADA DO May 22, 2022 20:36
[2022-05-22 07:18] LABS: ALBUMIN 2.6 GM/DL (3.2-4.5); BILIRUBIN,TOTAL 1.6 MG/DL (0.1-1.0); CALCIUM 8.6 MG/DL (8.5-10.1); CREATININE SERUM 0.51 MG/DL (0.60-1.30); POTASSIUM 3.6 MMOL/L (3.6-5.0); TOTAL PROTEIN 5.8 GM/DL (6.4-8.2)
[2022-05-22 07:37] LABS: BAND NEUTROPHILS 6 %; BASOPHILS % (MANUAL) 0 %; EOSINOPHILS % (MANUAL) 0 %; LYMPHOCYTES % (MANUAL) 25 %; MONOCYTES % (MANUAL) 6 %; MYELOCYTES % 5 %; NEUTROPHILS % (MANUAL) 58 %; RBC MORPH NORMAL
[2022-05-22] MEDS: LACTATED RINGERS 1,000 ML IV SCH ×2 (08:15→18:27)
[2022-05-22] MEDS: AZITHROMYCIN 250 MG TAB (ZITHROMAX) PO SCH (08:15)
[2022-05-22] MEDS: DOCUSATE SODIUM 100 MG (COLACE) CAP PO SCH ×2 (08:21→21:36)
[2022-05-22] MEDS: KCL 10 MEQ TAB (MICRO K) PO SCH ×2 (08:21→21:36)
[2022-05-22] MEDS: SENNOSIDES 8.6 MG (SENOKOT) TAB PO SCH ×2 (08:21→21:36)
[2022-05-22 08:47] VITALS: BP 110/53
[2022-05-22] MEDS: RT-ALBUTEROL SULF 2.5 MG/3 ML PRE-MIX VIAL INH SCH ×2 (09:04→21:24)
[2022-05-22] MEDS ORDERED: LACTULOSE SYRUP 10GM/15ML (ENULOSE) 30ML UDC PO NR (11:00)
[2022-05-22] MEDS ORDERED: SENNA W/DOCUSATE (SENOKOT S) TABLET PO NR (11:00)
--- NOTE | 2022-05-22 11:27 | Progress Note - Hospitalist ---
[facility] 05/22/22 1127: Subjective HPI/CC On Admission Date Seen by Provider: May 22, 2022 Time Seen by Provider: 10:55 Barber is a 46 y WF who presented to the ED on 05/16/22 and was diagnosed with CAP and started on cipro outpatient. She returned to the ED on 05/18/22 due to worsening symptoms of SOB, rib pain, fatigue. The rib pain is left sided and worse with coughing. She tested positive for Influenza A on 05/18/22 and was admitted for IV fluids, cefepime and azithromycin were started for pneumonia. CXR on 05/18/22 revealed progressive airspace consolidation within the left lung, likely reflecting increasing consolidation related to pneumonia. Subjective/Events-last exam Today she notes having left side pain up to her left shoulder that is worse when she coughs or moves. Her cough is improved though still productive. She endorses walking around her room. No BM, passing flatus and urinating without issue. Gallbladder ultrasound revealed cholelithiasis and probable choledocholithiasis, suggest HIDA for further evaluation. Surgery is consulted and is considering cholecystectomy on an outpatient basis to allow time for recovery from current illness. Review of Systems HEENT: No Head Aches, No Sore Throat Pulmonary: Dyspnea, Cough, Pleuritic Chest Pain Cardiovascular: No: Chest Pain, Palpitations Gastrointestinal: Constipation; No: Nausea, Vomiting, Abdominal Pain Genitourinary: No Dysuria, No Frequency Musculoskeletal: other (left side pain), shoulder pain Objective Exam Vital Signs Vital Signs Date Time Temp Pulse Resp B/P (MAP) Pulse Ox O2 Delivery O2 Flow Rate FiO2 05/22/22 11:51 36.2 90 18 113/56 (75) 93 Room Air 05/22/22 08:00 2.00 05/18/22 14:12 21 Capillary Refill : General Appearance: No Apparent Distress, WD/WN, Other (coughing) HEENT: PERRL/EOMI, Moist Mucous Membranes Neck: Full Range of Motion Respiratory: Chest Non Tender, No Accessory Muscle Use, No Respiratory Distress, Other (coarse lung sounds throughout) Cardiovascular: Regular Rate, Rhythm, No Edema, No Gallop, No JVD, No Murmur, Normal Peripheral Pulses Gastrointestinal: Normal Bowel Sounds, Non Tender, Soft Extremity: Normal Capillary Refill, Non Tender, No Calf Tenderness, No Pedal Edema Neurologic/Psychiatric: Alert, Oriented x3, No Motor/Sensory Deficits, Normal Mood/Affect Skin: Normal Color, Warm/Dry Results/Procedures Lab Laboratory Tests 05/22/22 05:56 Patient resulted labs reviewed. Imaging: Reviewed Imaging Report Assessment/Plan Assessment and Plan Assess & Plan/Chief Complaint CAP Leukocytosis Hypokalemia Acute kidney injury - improved Dehydration Current smoker Transaminitis - improving Cholelithiasis/Choledocholithiasis Pleurisy Constipation Continue Cefepime and azithromycin Continue K replacement, no spironolactone given hypotension Ambulating CTA chest c/w infectious process General surgery planning outpatient management of cholelithiasis Stool softeners Clinical Quality Measures AMI/AHF: ASA po Prior to arrival: KATHY Patrick DO 05/23/22 0451: Subjective Subjective/Events-last exam Improved status Objective Exam General Appearance: No Apparent Distress, WD/WN, Chronically ill Respiratory: No Accessory Muscle Use, No Respiratory Distress, Crackles Cardiovascular: Regular Rate, Rhythm Assessment/Plan Assessment and Plan Assess & Plan/Chief Complaint Supportive care Supervisory-Addendum Brief Verification & Attestation Participated in pt care: history, MDM, physical Personally performed: exam, history, MDM, supervision of care Care discussed with: Medical Student Procedures: n/a Results interpretation: Verified all documentation Verification and Attestation of Medical Student E/M Service A medical student performed and documented this service in my presence. I reviewed and verified all information documented by the medical student and made modifications to such information, when appropriate. I personally performed the physical exam and medical decision making. Kathy Velázquez May 23, 2022,04:50 FREDDIE SALAZAR May 22, 2022 11:27 KATHY VELÁZQUEZ DO May 23, 2022 04:51
[2022-05-22 11:51] VITALS: BP 113/56
[2022-05-22 16:25] VITALS: BP 109/66
[2022-05-22 19:30] VITALS: BP 116/68
[2022-05-22] MEDS ORDERED: guaiFENesin/DM (ROBITUSSIN DM) 10 ML UDC PO PRN (23:30)
[2022-05-22 23:49] VITALS: BP 127/58
[2022-05-23] MEDS: LACTATED RINGERS 1,000 ML IV SCH ×2 (01:45→06:28)
[2022-05-23] MEDS: CEFEPIME 1,000 MG/NS 50 ML IVPB IV SCH ×6 (03:00→14:34)
[2022-05-23 03:17] VITALS: BP 126/58
[2022-05-23 05:40] LABS: BASOPHILS # (AUTO) 0.1 10^3/uL (0.0-0.1); BASOPHILS % (AUTO) 0 % (0-10); EOSINOPHILS # (AUTO) 0.1 10^3/uL (0.0-0.3); EOSINOPHILS % (AUTO) 1 % (0-10); HEMATOCRIT 29 % (35-52); HEMOGLOBIN 10.3 g/dL (11.5-16.0); LYMPHOCYTES # (AUTO) 2.4 10^3/uL (1.0-4.0); LYMPHOCYTES % (AUTO) 13 % (12-44); MEAN CORPUSCULAR HEMOGLOBIN 32 pg (25-34); MEAN CORPUSCULAR HGB CONC 35 g/dL (32-36); MEAN CORPUSCULAR VOLUME 92 fL (80-99); MEAN PLATELET VOLUME 10.9 fL (9.0-12.2); MONOCYTES # (AUTO) 0.8 10^3/uL (0.0-1.0); MONOCYTES % (AUTO) 4 % (0-12); NEUTROPHILS # (AUTO) 13.2 10^3/uL (1.8-7.8); NEUTROPHILS % (AUTO) 70 % (42-75); PLATELET COUNT 319 10^3/uL (130-400); WHITE BLOOD COUNT 18.8 10^3/uL (4.3-11.0)
[2022-05-23 06:06] LABS: ALBUMIN 2.4 GM/DL (3.2-4.5); BILIRUBIN,DIRECT 1.1 MG/DL (0.0-0.3); BILIRUBIN,TOTAL 1.5 MG/DL (0.1-1.0); CALCIUM 8.3 MG/DL (8.5-10.1); CREATININE SERUM 0.52 MG/DL (0.60-1.30); POTASSIUM 3.2 MMOL/L (3.6-5.0); TOTAL PROTEIN 5.6 GM/DL (6.4-8.2)
[2022-05-23] MEDS: RT-ALBUTEROL SULF 2.5 MG/3 ML PRE-MIX VIAL INH SCH ×2 (07:42→18:58)
[2022-05-23] MEDS: SENNOSIDES 8.6 MG (SENOKOT) TAB PO SCH ×2 (07:47→19:34)
[2022-05-23] MEDS: DOCUSATE SODIUM 100 MG (COLACE) CAP PO SCH ×2 (07:47→19:34)
[2022-05-23] MEDS: KCL 10 MEQ TAB (MICRO K) PO SCH ×2 (07:48→19:34)
[2022-05-23 07:56] VITALS: BP 121/58
--- NOTE | 2022-05-23 08:38 | Progress Note - Surgery ---
LALA ADAMS 05/23/22 0838: Subjective Date Seen by a Provider: May 23, 2022 Subjective/Events-last exam Pt is presenting well. She was sitting up in bed during interview in good spirit. This morning she didn't have a coughing fit like she has been the past couple of days. Pt states she still has left. sided pain in shoulder area and side with cough. Pt states that her cough is dryer than yesterday. Pt is able to ambulate but does has have SOB. She has been doing breathing treatment about 3-4 times per day, and using her incentive spirometer every hour. She is able to do 4 breaths without coughing. At night patient is using 1L oxygen per NC, and is able to sleep in 2hr increments. Pt denies fever, chills, N/V/D and constipation, chest pain, swelling, and any voiding issues. Pt has had headache, thumb numbness. Review of Systems General: No Chills, No Fatigue HEENT: Head Aches, Sinus Congestion Pulmonary: Dyspnea, Cough Cardiovascular: No: Chest Pain, Palpitations, Edema Gastrointestinal: No: Nausea, Vomiting, Diarrhea, Constipation Genitourinary: No Dysuria Neurological: Other (Tingling of Thumb in morning); No: Weakness, Numbness, Incoordination Objective Exam Vital Signs Date Time Temp Pulse Resp B/P (MAP) Pulse Ox O2 Delivery O2 Flow Rate FiO2 05/23/22 07:56 36.0 91 18 121/58 (79) 92 Nasal Cannula 2.00 05/23/22 07:53 91 Room Air 05/23/22 07:42 93 Room Air 0.00 05/23/22 03:17 36.4 100 20 126/58 (80) 94 Nasal Cannula 1.00 05/22/22 23:49 36.5 101 18 127/58 (81) 92 Room Air 05/22/22 21:24 91 Room Air 05/22/22 20:55 92 Room Air 05/22/22 19:30 37.0 93 18 116/68 (84) 93 Room Air 05/22/22 16:25 35.6 91 18 109/66 (80) 91 Room Air 05/22/22 11:51 36.2 90 18 113/56 (75) 93 Room Air 05/22/22 08:47 36.2 92 18 110/53 (72) 92 Room Air I & O 05/23/22 07:00 Intake Total 2140 ml Balance 2140 ml Capillary Refill : General Appearance: No Apparent Distress, WD/WN, Chronically ill HEENT: PERRL/EOMI, Normal ENT Inspection Neck: Full Range of Motion, Non Tender Respiratory: No Accessory Muscle Use, No Respiratory Distress, Crackles Cardiovascular: Regular Rate, Rhythm Peripheral Pulses: 2+ Radial Pulses (R), 2+ Radial Pulses (L) Gastrointestinal: soft, tenderness (LUQ tenderness minimal on exam) Extremity: Non Tender, No Calf Tenderness Neurologic/Psychiatric: Alert, Oriented x3, Normal Mood/Affect Skin: Normal Color, Warm/Dry Lymphatic: No Adenopathy Results Lab Laboratory Tests 05/23/22 05:34: White Blood Count 18.8H, Red Blood Count 3.18L, Hemoglobin 10.3L, Hematocrit 29L , Mean Corpuscular Volume 92, Mean Corpuscular Hemoglobin 32, Mean Corpuscular Hemoglobin Concent 35, Red Cell Distribution Width 13.7, Platelet Count 319, Mean Platelet Volume 10.9, Immature Granulocyte % (Auto) 12, Neutrophils (%) (Auto) 70, Lymphocytes (%) (Auto) 13, Monocytes (%) (Auto) 4, Eosinophils (%) (Auto) 1, Basophils (%) (Auto) 0, Neutrophils # (Auto) 13.2H, Lymphocytes # (Auto) 2.4, Monocytes # (Auto) 0.8, Eosinophils # (Auto) 0.1, Basophils # (Auto) 0.1, Immature Granulocyte # (Auto) 2.2H, Sodium Level 134L, Potassium Level 3.2L , Chloride Level 101, Carbon Dioxide Level 22, Anion Gap 11, Blood Urea Nitrogen 6L, Creatinine 0.52L, Estimat Glomerular Filtration Rate 117, BUN/Creatinine Ratio 12, Glucose Level 93, Calcium Level 8.3L, Corrected Calcium 9.6, Total Bilirubin 1.5H, Direct Bilirubin 1.1H, Aspartate Amino Transf (AST/SGOT) 63H, Alanine Aminotransferase (ALT/SGPT) 63H, Alkaline Phosphatase 252H, Total Protein 5.6L, Albumin 2.4L Microbiology 05/18/22 Blood Culture - Preliminary, Resulted No growth Assessment/Plan Assessment/Plan Assessment/Plan cholelithiasis choledocholithiasis luq pain pneumonia/influenza a continue abx Total and Direct Bilirubin are elevated as well as Alk Phos which continues to elevate. Repeat Ultrasound Consider transfer for ercp due to elevating WBC, Total and Direct Bilirubin, and Alk Phos. continue management of pneumonia Clinical Quality Measures AMI/AHF: ASA po Prior to arrival: JOSE Olsen DO 05/23/222005: Subjective Subjective/Events-last exam Breathign is slightly better she states. LUQ pain not as bad today. WBC trending up and liver enzymes still elevated. Less cough, but still present. Denies n/v fever sweats chills shortness of breath or chest pain at this time. Objective Exam General Appearance: No Apparent Distress, Chronically ill HEENT: PERRL/EOMI, Normal ENT Inspection Neck: Full Range of Motion, Non Tender Respiratory: Chest Non Tender, No Accessory Muscle Use, No Respiratory Distress Cardiovascular: Regular Rate, Rhythm Gastrointestinal: soft, tenderness (LUQ tenderness minimal on exam) Extremity: Non Tender, No Calf Tenderness Neurologic/Psychiatric: Alert, Oriented x3, Normal Mood/Affect Skin: Normal Color, Warm/Dry Lymphatic: No Adenopathy Assessment/Plan Assessment/Plan Assessment/Plan cholelithiasis choledocholithiasis luq pain pneumonia/influenza a continue abx WBC trending up with Total and Direct Bilirubin are elevated as well as liver panel. I discussed with patient her breathing/cough symtpoms improving but wbc increasing despite Cefepime for 4 days. Feel that this could be related to CBD stones, she is afebirle. I discussed she would need GI for ERCP. She is agreeable to transfer to [place]. [facility] currently at capacity. Will keep on [facility]. [facility] has her on transfer list. Supervisory-Addendum Brief Verification & Attestation Participated in pt care: history, MDM, physical Personally performed: exam, history, MDM, supervision of care Care discussed with: Medical Student Procedures: n/a Results interpretation: Verified all documentation Verification and Attestation of Medical Student E/M Service A medical student performed and documented this service in my presence. I reviewed and verified all information documented by the medical student and made modifications to such information, when appropriate. I personally performed the physical exam and medical decision making. Jose Moncada, May 23, 2022,20:06 LALA ADAMS May 23, 2022 08:38 JOSE MONCADA DO May 23, 2022 20:06
[2022-05-23] MEDS: HYDROmorphone 2 MG/ML VIAL (DILAUDID) IV PRN ×5 (09:44→23:51)
[2022-05-23 11:51] VITALS: BP 123/60
[2022-05-23] MEDS ORDERED: OXC5T PO (12:24)
[2022-05-23] MEDS ORDERED: CEFD300C3 PO (12:24)
[2022-05-23] MEDS ORDERED: POTA-160 PO (12:24)
--- NOTE | 2022-05-23 12:25 | Discharge Summary ---
Discharge Summary Hospital Course Was the Problem List Reviewed?: Yes Problems/Dx: (1) Community acquired pneumonia Status: Acute Qualifiers: Qualified Codes: J18.9 - Pneumonia, unspecified organism (2) Choledocholithiasis (3) Dehydration Status: Acute (4) Acute kidney injury (5) Hypokalemia (6) Pneumonia Hospital Course Date of Admission: May 18, 2022 at 12:28 Admission Diagnosis : Family Physician/Provider: [place] Date of Discharge: 05/23/22 Discharge Diagnosis: [ ] Hospital Course: Barber is a 46 y WF who presented to the ED on 05/16/22 and was diagnosed with CAP and started on cipro outpatient. She returned to the ED on 05/18/22 due to worsening symptoms of SOB, rib pain, fatigue. The rib pain is left sided and worse with coughing. She tested positive for Influenza A on 05/18/22 and was admitted for IV fluids, cefepime and azithromycin were started for pneumonia. CXR on 05/18/22 revealed progressive airspace consolidation within the left lung, likely reflecting increasing consolidation related to pneumonia. CTA was obtained and was consistent with an infectious pulmonary process. Also revealed cholelithiasis and choledocholithiasis. General surgery obtained abdominal ultrasound to further categorize gallbladder disease. Her LFTs and BR continue to be elevated so general surgery, Dr. Moncada, is considering transfer to [place] to obtain ERCP. Patient denies ever having had issues with her gallbladder in the past. Today her cough is improved though still productive. Her left side pain is imp roved though she is having left posterior shoulder pain, likely pleurisy due to pneumonia. She is ambulating well and using IS. She had a BM today that was formed, no issues with urination. Labs and Pending Lab Test: Laboratory Tests 05/23/22 05:34: White Blood Count 18.8H, Red Blood Count 3.18L, Hemoglobin 10.3L, Hematocrit 29L , Mean Corpuscular Volume 92, Mean Corpuscular Hemoglobin 32, Mean Corpuscular Hemoglobin Concent 35, Red Cell Distribution Width 13.7, Platelet Count 319, Mean Platelet Volume 10.9, Immature Granulocyte % (Auto) 12, Neutrophils (%) (Auto) 70, Lymphocytes (%) (Auto) 13, Monocytes (%) (Auto) 4, Eosinophils (%) (Auto) 1, Basophils (%) (Auto) 0, Neutrophils # (Auto) 13.2H, Lymphocytes # (Auto) 2.4, Monocytes # (Auto) 0.8, Eosinophils # (Auto) 0.1, Basophils # (Auto) 0.1, Immature Granulocyte # (Auto) 2.2H, Sodium Level 134L, Potassium Level 3.2L , Chloride Level 101, Carbon Dioxide Level 22, Anion Gap 11, Blood Urea Nitrogen 6L, Creatinine 0.52L, Estimat Glomerular Filtration Rate 117, BUN/Creatinine Ratio 12, Glucose Level 93, Calcium Level 8.3L, Corrected Calcium 9.6, Total Bilirubin 1.5H, Direct Bilirubin 1.1H, Aspartate Amino Transf (AST/SGOT) 63H, Alanine Aminotransferase (ALT/SGPT) 63H, Alkaline Phosphatase 252H, Total Protein 5.6L, Albumin 2.4L Microbiology 05/18/22 Blood Culture - Preliminary, Resulted No growth Home Meds Active Cefdinir 300 Mg Capsule 300 Mg PO BID Klor-Con 10 (Potassium Chloride) 10 Meq Tablet.er 10 Meq PO DAILY Reported Ciprofloxacin HCl 500 Mg Tablet 500 Mg PO BID FILLED 05-16-2022 #14/7 DAY SUPPLY Assessment/Pt Instructions Transfer for ERCP Discharge Planning: <30 minutes discharge planning Discharge Physical Examination Vital Signs Vital Signs Date Time Temp Pulse Resp B/P (MAP) Pulse Ox O2 Delivery O2 Flow Rate FiO2 05/23/22 11:51 36.2 87 18 123/60 (81) 93 Room Air 05/23/22 07:56 2.00 05/18/22 14:12 21 Allergies: Coded Allergies: No Known Drug Allergies (Unverified , 05/17/18) Discharge Summary Date of Admission May 18, 2022 at 12:28 Date of Discharge Discharge Date: May 23, 2022 Admission Diagnosis Discharge Diagnosis Supportive care Clinical Quality Measures AMI/AHF: ASA po Prior to arrival: IRENE Patrick DO May 23, 2022 12:25
--- NOTE | 2022-05-23 13:56 | Progress Note - Hospitalist ---
[facility] 05/23/22 1356: Subjective HPI/CC On Admission Date Seen by Provider: May 23, 2022 Time Seen by Provider: 12:05 SOB, fatigue Subjective/Events-last exam Barber is a 46 y WF who presented to the ED on 05/16/22 and was diagnosed with CAP and started on cipro outpatient. She returned to the ED on 05/18/22 due to worsening symptoms of SOB, rib pain, fatigue. The rib pain is left sided and worse with coughing. She tested positive for Influenza A on 05/18/22 and was admitted for IV fluids, cefepime and azithromycin were started for pneumonia. CXR on 05/18/22 revealed progressive airspace consolidation within the left lung, likely reflecting increasing consolidation related to pneumonia. CTA was obtained and was consistent with an infectious pulmonary process. Also revealed cholelithiasis and choledocholithiasis. General surgery obtained abdominal ultrasound to further categorize gallbladder disease. Her LFTs and BR continue to be elevated so general surgery, Dr. Moncada, is considering transfer to [place] to obtain ERCP. Patient denies ever having had issues with her gallblad richie in the past. Today her cough is improved though still productive. Her left side pain is improved though she is having left posterior shoulder pain, likely pleurisy due to pneumonia. She is ambulating well and using IS. She had a BM today that was formed, no issues with urination. Review of Systems General: No Fatigue HEENT: No Head Aches Pulmonary: Dyspnea (improved), Cough (improved) Cardiovascular: No: Chest Pain, Edema Gastrointestinal: No: Nausea, Vomiting Genitourinary: No Dysuria, No Frequency Musculoskeletal: shoulder pain (left posterior) Objective Exam Vital Signs Vital Signs Date Time Temp Pulse Resp B/P (MAP) Pulse Ox O2 Delivery O2 Flow Rate FiO2 05/23/22 11:51 36.2 87 18 123/60 (81) 93 Room Air 05/23/22 07:56 2.00 05/18/22 14:12 21 Capillary Refill : General Appearance: No Apparent Distress, WD/WN HEENT: PERRL/EOMI, Moist Mucous Membranes Neck: Full Range of Motion Respiratory: Chest Non Tender, No Accessory Muscle Use, No Respiratory Distress, Other (coarse lung sounds- improved from yesterday) Cardiovascular: Regular Rate, Rhythm, No Edema, No Gallop, No Murmur, Normal Peripheral Pulses Gastrointestinal: Normal Bowel Sounds, Non Tender, Soft Back: No CVA Tenderness, No Vertebral Tenderness Extremity: Normal Capillary Refill, Normal Range of Motion, Non Tender, No Pedal Edema Neurologic/Psychiatric: Alert, Oriented x3, No Motor/Sensory Deficits, Normal Mood/Affect Skin: Normal Color, Warm/Dry Lymphatic: No Adenopathy Results/Procedures Lab Laboratory Tests 05/23/22 05:34 Patient resulted labs reviewed. Imaging: Reviewed Imaging Report Assessment/Plan Assessment and Plan Assess & Plan/Chief Complaint CAP Leukocytosis Hypokalemia Acute kidney injury - improved Dehydration Current smoker Transaminitis Cholelithiasis/Choledocholithiasis Pleurisy Constipation - resolved with stool softeners Continue antibiotic therapy Continue K replacement, no spironolactone given intermittent hypotension Ambulating General surgery managing cholelithiasis Ok for d/c from medicine, gen surg is considering transfer to [place] to obtain ERCP Clinical Quality Measures AMI/AHF: ASA po Prior to arrival: No KATHY MABRY DO 05/24/22 0527: Subjective Subjective/Events-last exam Having difficulty arranging ERCP Assessment/Plan Assessment and Plan Assess & Plan/Chief Complaint ERCP Supervisory-Addendum Brief Verification & Attestation Participated in pt care: history, MDM, physical Personally performed: exam, history, MDM, supervision of care Care discussed with: Medical Student Procedures: n/a Results interpretation: Verified all documentation Verification and Attestation of Medical Student E/M Service A medical student performed and documented this service in my presence. I reviewed and verified all information documented by the medical student and made modifications to such information, when appropriate. I personally performed the physical exam and medical decision making. Kathy Mabry, May 24, 2022,05:27 SALAZARFREDDIE May 23, 2022 13:56 KATHY MABRY DO May 24, 2022 05:27
[2022-05-23 15:52] VITALS: BP 112/57
[2022-05-23 19:53] VITALS: BP 111/53
[2022-05-24] VITALS: BP 102/56
[2022-05-24] MEDS: LACTATED RINGERS 1,000 ML IV SCH (01:58)
[2022-05-24] MEDS: HYDROmorphone 2 MG/ML VIAL (DILAUDID) IV PRN (05:17)
[2022-05-24 06:19] LABS: BASOPHILS # (AUTO) 0.1 10^3/uL (0.0-0.1); BASOPHILS % (AUTO) 0 % (0-10); EOSINOPHILS # (AUTO) 0.1 10^3/uL (0.0-0.3); EOSINOPHILS % (AUTO) 1 % (0-10); HEMATOCRIT 30 % (35-52); HEMOGLOBIN 10.2 g/dL (11.5-16.0); LYMPHOCYTES # (AUTO) 2.3 10^3/uL (1.0-4.0); LYMPHOCYTES % (AUTO) 13 % (12-44); MEAN CORPUSCULAR HEMOGLOBIN 31 pg (25-34); MEAN CORPUSCULAR HGB CONC 34 g/dL (32-36); MEAN CORPUSCULAR VOLUME 93 fL (80-99); MEAN PLATELET VOLUME 11.2 fL (9.0-12.2); MONOCYTES # (AUTO) 0.7 10^3/uL (0.0-1.0); MONOCYTES % (AUTO) 4 % (0-12); NEUTROPHILS # (AUTO) 13.3 10^3/uL (1.8-7.8); NEUTROPHILS % (AUTO) 74 % (42-75); PLATELET COUNT 332 10^3/uL (130-400)
--- NOTE | 2022-05-24 06:30 | Progress Note - Hospitalist ---
Subjective HPI/CC On Admission Date Seen by Provider: May 24, 2022 Time Seen by Provider: 11:00 SOB, fatigue Objective Exam Vital Signs Vital Signs Date Time Temp Pulse Resp B/P (MAP) Pulse Ox O2 Delivery O2 Flow Rate FiO2 05/24/22 08:00 93 Room Air 0.00 05/24/22 07:53 36.1 82 18 132/61 (84) 05/18/22 14:12 21 Capillary Refill : Results/Procedures Lab Laboratory Tests 05/24/22 05:40 Patient resulted labs reviewed. Imaging: Reviewed Imaging Report Assessment/Plan Assessment and Plan Assess & Plan/Chief Complaint ERCP Diagnosis/Problems Diagnosis/Problems (1) Community acquired pneumonia Status: Acute Qualifiers: Laterality: left Lung location: upper lobe of lung Qualified Codes: J18.9 - Pneumonia, unspecified organism (2) Choledocholithiasis (3) Dehydration Status: Acute (4) Acute kidney injury (5) Hypokalemia (6) Pneumonia Clinical Quality Measures AMI/AHF: ASA po Prior to arrival: IRENE Patrick DO May 24, 2022 06:30
[2022-05-24 06:45] LABS: ALBUMIN 2.5 GM/DL (3.2-4.5); POTASSIUM 3.4 MMOL/L (3.6-5.0)
[2022-05-24 06:46] LABS: CALCIUM 8.5 MG/DL (8.5-10.1)
[2022-05-24 06:47] LABS: TOTAL PROTEIN 5.5 GM/DL (6.4-8.2)
[2022-05-24 06:49] LABS: BILIRUBIN,TOTAL 1.3 MG/DL (0.1-1.0)
[2022-05-24 06:51] LABS: CREATININE SERUM 0.48 MG/DL (0.60-1.30)
[2022-05-24 07:53] VITALS: BP 132/61
[2022-05-24] MEDS: RT-ALBUTEROL SULF 2.5 MG/3 ML PRE-MIX VIAL INH SCH (08:00)
--- NOTE | 2022-05-24 09:31 | Progress Note - Surgery ---
ANGIELALA 05/24/22 0931: Subjective Date Seen by a Provider: May 24, 2022 Subjective/Events-last exam Pt is feeling well and SOB has improved from yesterday. Pt still has left sided abdominal, shoulder, and back pain but is improving. Pt is currently on wait- list for ERCP at [facility]. Pt states that she has some congestion but it is improving as well. Still using incentive spirometer every hour to help with breathing. Pt needed oxygen at night two nights ago, but did not receive oxygen last night before bed. Review of Systems General: No Chills, No Night Sweats HEENT: No Head Aches; Sinus Congestion Pulmonary: Dyspnea, Cough Cardiovascular: No: Chest Pain, Palpitations, Edema Gastrointestinal: Abdominal Pain; No: Nausea, Vomiting, Diarrhea, Constipation Genitourinary: No Dysuria, No Frequency Neurological: No: Weakness, Numbness Objective Exam Vital Signs Date Time Temp Pulse Resp B/P (MAP) Pulse Ox O2 Delivery O2 Flow Rate FiO2 05/24/22 08:00 93 Room Air 0.00 05/24/22 07:53 36.1 82 18 132/61 (84) 92 Room Air 05/24/22 00:00 36.1 86 18 102/56 (71) 93 Room Air 05/23/22 21:15 36.1 05/23/22 20:17 38.1 05/23/22 19:53 38.1 93 18 111/53 (72) 97 Room Air 05/23/22 19:30 Room Air 05/23/22 18:58 96 Room Air 0.00 05/23/22 15:52 37.2 91 18 112/57 (75) 92 Room Air 05/23/22 11:51 36.2 87 18 123/60 (81) 93 Room Air I & O 05/24/22 07:00 Intake Total 2380 ml Balance 2380 ml Capillary Refill : General Appearance: No Apparent Distress, Chronically ill HEENT: PERRL/EOMI, Normal ENT Inspection Neck: Full Range of Motion, Non Tender Respiratory: Chest Non Tender, No Accessory Muscle Use, No Respiratory Distress Cardiovascular: Regular Rate, Rhythm Peripheral Pulses: 2+ Radial Pulses (R), 2+ Radial Pulses (L) Gastrointestinal: soft, tenderness (LUQ tenderness minimal on exam) Extremity: Non Tender, No Calf Tenderness Neurologic/Psychiatric: Alert, Oriented x3, Normal Mood/Affect Skin: Normal Color, Warm/Dry Lymphatic: No Adenopathy Results Lab Laboratory Tests 05/24/22 05:40: White Blood Count 18.0H, Red Blood Count 3.25L, Hemoglobin 10.2L, Hematocrit 30L , Mean Corpuscular Volume 93, Mean Corpuscular Hemoglobin 31, Mean Corpuscular Hemoglobin Concent 34, Red Cell Distribution Width 14.0, Platelet Count 332, Mean Platelet Volume 11.2, Immature Granulocyte % (Auto) 9, Neutrophils (%) (Auto) 74, Lymphocytes (%) (Auto) 13, Monocytes (%) (Auto) 4, Eosinophils (%) (Auto) 1, Basophils (%) (Auto) 0, Neutrophils # (Auto) 13.3H, Lymphocytes # (Auto) 2.3, Monocytes # (Auto) 0.7, Eosinophils # (Auto) 0.1, Basophils # (Auto) 0.1, Immature Granulocyte # (Auto) 1.5H, Sodium Level 136, Potassium Level 3.4L, Chloride Level 101, Carbon Dioxide Level 24, Anion Gap 11, Blood Urea Nitrogen 5L, Creatinine 0.48L, Estimat Glomerular Filtration Rate 119, BUN/Creatinine Ratio 10, Glucose Level 94, Calcium Level 8.5, Corrected Calcium 9.7, Total Bilirubin 1.3H, Direct Bilirubin 0.8H, Aspartate Amino Transf (AST/SGOT) 33, Alanine Aminotransferase (ALT/SGPT) 50, Alkaline Phosphatase 230H, Total Protein 5.5L, Albumin 2.5L Microbiology 05/18/22 Blood Culture - Final, Complete No growth Assessment/Plan Assessment/Plan Assessment/Plan cholelithiasis choledocholithiasis luq pain pneumonia/influenza a continue abx Patient breathing/cough symptoms improving. WBC is elevated at 18 but has trended downward from yesterday at 18.8. Pt's Alk Phos is trending downward from 252 to 230. Pt's liver panel is back to normal. Discussed she would need GI for ERCP. She is agreeable to transfer to [facility]. [facility] currently at capacity. Consider keeping her on [facility] has her on transfer list. Clinical Quality Measures AMI/AHF: ASA po Prior to arrival: No JOSE MONCADA DO 05/25/22 1156: Subjective Subjective/Events-last exam Patient feeling better. Not having left upper quadrant abdominal pain at this time. Minimal pain in upper left chest but feeling well. Not really having any cough. Denies n/v fever sweats chills shortness of breath or chest pain. Objective Exam General Appearance: No Apparent Distress, Chronically ill HEENT: PERRL/EOMI, Normal ENT Inspection Neck: Full Range of Motion, Non Tender Respiratory: Chest Non Tender, No Accessory Muscle Use, No Respiratory Distress Cardiovascular: Regular Rate, Rhythm, No JVD Gastrointestinal: soft, tenderness (LUQ tenderness minimal on exam) Extremity: Non Tender, No Calf Tenderness Neurologic/Psychiatric: Alert, Oriented x3, Normal Mood/Affect Skin: Normal Color, Warm/Dry Lymphatic: No Adenopathy Assessment/Plan Assessment/Plan Assessment/Plan cholelithiasis choledocholithiasis luq pain pneumonia/influenza a Patient breathing/cough symptoms improved. Discussed she would need GI for ERCP. Since clinically doing well, could be set up as outpatient since doing well. Supervisory-Addendum Brief Verification & Attestation Participated in pt care: history, MDM, physical Personally performed: exam, history, MDM, supervision of care Care discussed with: Medical Student Procedures: n/a Results interpretation: Verified all documentation Verification and Attestation of Medical Student E/M Service A medical student performed and documented this service in my presence. I reviewed and verified all information documented by the medical student and made modifications to such information, when appropriate. I personally performed the physical exam and medical decision making. Jose Moncada, May 24, 2022,12:01 LALA ADAMS May 24, 2022 09:31 JOSE MONCADA DO May 25, 2022 11:56
--- NOTE | 2022-05-24 11:25 | Discharge Summary ---
Discharge Summary Hospital Course Problems/Dx: (1) Community acquired pneumonia Status: Acute Qualifiers: Qualified Codes: J18.9 - Pneumonia, unspecified organism (2) Choledocholithiasis (3) Dehydration Status: Acute (4) Acute kidney injury (5) Hypokalemia (6) Pneumonia Hospital Course Date of Admission: May 18, 2022 at 12:28 Admission Diagnosis : Family Physician/Provider: [facility] Date of Discharge: 05/24/22 Discharge Diagnosis: [ ] Hospital Course: Barber is a 46 y WF who presented to the ED on 05/16/22 and was diagnosed with CAP and started on cipro outpatient. She returned to the ED on 05/18/22 due to worsening symptoms of SOB, rib pain, fatigue. The rib pain is left sided and worse with coughing. She tested positive for Influenza A on 05/18/22 and was admitted for IV fluids, cefepime and azithromycin were started for pneumonia. CXR on 05/18/22 revealed progressive airspace consolidation within the left lung, likely reflecting increasing consolidation related to pneumonia. CTA was obtained and was consistent with an infectious pulmonary process. Also revealed cholelithiasis and choledocholithiasis. General surgery obtained abdominal ul trasound to further categorize gallbladder disease. Her LFTs and BR continue to be elevated so general surgery, Dr. Moncada, is considering transfer to [facility] to obtain ERCP. Patient denies ever having had issues with her gallbladder in the past. This will be arranged as an outpatient. Today her cough is improved though still productive. Her left side pain is improved though she is having left posterior shoulder pain, likely pleurisy due to pneumonia. She is ambulating well and using IS. She had a BM today that was formed, no issues with urination. Labs and Pending Lab Test: Laboratory Tests 05/24/22 05:40: White Blood Count 18.0H, Red Blood Count 3.25L, Hemoglobin 10.2L, Hematocrit 30L , Mean Corpuscular Volume 93, Mean Corpuscular Hemoglobin 31, Mean Corpuscular Hemoglobin Concent 34, Red Cell Distribution Width 14.0, Platelet Count 332, Mean Platelet Volume 11.2, Immature Granulocyte % (Auto) 9, Neutrophils (%) (Auto) 74, Lymphocytes (%) (Auto) 13, Monocytes (%) (Auto) 4, Eosinophils (%) (Auto) 1, Basophils (%) (Auto) 0, Neutrophils # (Auto) 13.3H, Lymphocytes # (Auto) 2.3, Monocytes # (Auto) 0.7, Eosinophils # (Auto) 0.1, Basophils # (Auto) 0.1, Immature Granulocyte # (Auto) 1.5H, Sodium Level 136, Potassium Level 3.4L, Chloride Level 101, Carbon Dioxide Level 24, Anion Gap 11, Blood Urea Nitrogen 5L, Creatinine 0.48L, Estimat Glomerular Filtration Rate 119, BUN/Creatinine Ratio 10, Glucose Level 94, Calcium Level 8.5, Corrected Calcium 9.7, Total Bilirubin 1.3H, Direct Bilirubin 0.8H, Aspartate Amino Transf (AST/SGOT) 33, Alanine Aminotransferase (ALT/SGPT) 50, Alkaline Phosphatase 230H, Total Protein 5.5L, Albumin 2.5L Microbiology 05/18/22 Blood Culture - Final, Complete No growth Home Meds Active Cefdinir 300 Mg Capsule 300 Mg PO BID Oxyir Tablet (Oxycodone HCl) 5 Mg Tab 5 Mg PO Q4HR PRN Klor-Con 10 (Potassium Chloride) 10 Meq Tablet.er 10 Meq PO DAILY Reported Ciprofloxacin HCl 500 Mg Tablet 500 Mg PO BID FILLED 05-16-2022 #14/ DAY SUPPLY Assessment/Pt Instructions PCP and Dr. Moncada this week Discharge Planning: <30 minutes discharge planning Discharge Physical Examination Vital Signs Vital Signs Date Time Temp Pulse Resp B/P (MAP) Pulse Ox O2 Delivery O2 Flow Rate FiO2 05/24/22 08:00 93 Room Air 0.00 05/24/22 07:53 36.1 82 18 132/61 (84) 05/18/22 14:12 21 General Appearance: No Apparent Distress, WD/WN Allergies: Coded Allergies: No Known Drug Allergies (Unverified , 05/17/18) Discharge Summary Date of Admission May 18, 2022 at 12:28 Date of Discharge Discharge Date: May 23, 2022 Admission Diagnosis Discharge Diagnosis ERCP (1) Community acquired pneumonia Status: Acute Qualifiers: Qualified Codes: J18.9 - Pneumonia, unspecified organism (2) Choledocholithiasis (3) Dehydration Status: Acute (4) Acute kidney injury (5) Hypokalemia (6) Pneumonia Clinical Quality Measures AMI/AHF: ASA po Prior to arrival: IRENE Patrick DO May 24, 2022 11:25
[2022-05-24] MEDS ORDERED: CEFDINIR 300 MG (OMNICEF) CAP PO SCH (11:30)
[2022-05-24] MEDS: DOCUSATE SODIUM 100 MG (COLACE) CAP PO SCH (12:06)
[2022-05-24] MEDS: SENNOSIDES 8.6 MG (SENOKOT) TAB PO SCH (12:06)
[2022-05-24] MEDS: KCL 10 MEQ TAB (MICRO K) PO SCH (12:07)
[2022-05-24 13:35] VITALS: BP 132/61
== END 2022-05-24 11:26 | disposition home or self-care (01) ==
LOC: EDUNIT# 10:32 → ER 10:34 → UNDOADMIN 12:28 → CSD 12:28 → 4TH 05-19 12:30 → UNDODISIN 05-24 13:00
PROVIDERS: ADMIT Internal Medicine; ATTEND Internal Medicine
DX: J18.9 Pneumonia, unspecified organism (principal); J10.1 Influenza due to other identified influenza virus with other respiratory manifestations; E86.0 Dehydration; N17.9 Acute kidney failure, unspecified; E87.6 Hypokalemia; K80.50 Calculus of bile duct without cholangitis or cholecystitis without obstruction; F17.210 Nicotine dependence, cigarettes, uncomplicated; Z20.822 Contact with and (suspected) exposure to COVID-19; Z23 Encounter for immunization
CPT/HCPCS: 71045 ×2; 71275; 76705; 80053 ×7; 82248 ×3; 83605; 83735 ×2; 84145; 84703; 85007 ×2; 85025 ×5; 85027 ×2; 85379; 85610; 85730; 87040; 87636; 93005; 94640 ×8; 94664; 94760 ×3; 96361; 96365; 96375; 99284; G0378 ×2; 36415; 90471; 90686; 96366; 96367; 96372; 96376

== ENCOUNTER 2022-06-03 08:54 | Outpatient (CLI) | payer MEDICAID ==
[~2022-06-03] VITALS: Ht 160 cm; Wt 86.2 kg
[~2022-06-03 08:54] MED LIST changes: +CEFD300C3 PO; +OXC5T PO; +POTA-160 PO
[2022-06-04] MEDS ORDERED: ACHD5005 PO (12:32)
== END 2022-06-03 13:31 ==
LOC: PREOP 08:54
PROVIDERS: ATTEND Surgery
DX: Z01.818 Encounter for other preprocedural examination (principal); K80.20 Calculus of gallbladder without cholecystitis without obstruction; K81.9 Cholecystitis, unspecified

== ENCOUNTER 2022-06-04 09:40 | Day surgery (SDC) | payer MEDICAID ==
[~2022-06-04] VITALS: Ht 160 cm; Wt 86.2 kg
[2022-06-04] VITALS (12 sets, daily range): BP systolic 103–140; BP diastolic 61–79
[2022-06-04] MEDS ORDERED: ceFAZolin INJECTION 2,000 MG in NS (IVPB) 50 ML IV ONE (10:00)
[2022-06-04] MEDS ORDERED: fentaNYL INJ 100 MCG/2 ML AMP ONE (10:11)
[2022-06-04] MEDS ORDERED: ROCURONIUM 10 MG/ML 5 ML SYRINGE IV ONE (10:11)
[2022-06-04] MEDS ORDERED: LIDOCAINE PF 2% 5 ML (XYLOCAINE) VIAL ONE (10:11)
[2022-06-04] MEDS ORDERED: proPOfol 200 MG/20 ML (DIPRIVAN) VIAL IV ONE (10:11)
[2022-06-04] MEDS ORDERED: ONDANSETRON 4 MG/2 ML (SDV) Z0FRAN ONE ×2 (10:11→13:16)
[2022-06-04] MEDS ORDERED: MIDAZOLAM 2 MG/2 ML (VERSED) VIAL ONE (10:11)
[2022-06-04] MEDS: LACTATED RINGERS 1,000 ML IV PRN ×2 (10:13→12:31)
[2022-06-04] MEDS ORDERED: BUP/EPI 0.25% 1:200,000 (MARCAINE) 30 ML VIAL ONE (10:34)
--- NOTE | 2022-06-04 11:13 | Progress Note-Pre Operative ---
Pre-Operative Progress Note Date of Available H&P: May 29, 2022 Date H&P Reviewed: Jun 04, 2022 Time H&P Reviewed: 11:08 History & Physical: H&P Reviewed, Patient Examed, No changes noted Pre-Operative Diagnosis: Cholelithiasis/Cholecystitis LARRY THOMAS DO Jun 04, 2022 11:13
[2022-06-04] MEDS ORDERED: BUP/EPI 0.25% 1:200,000 (MARCAINE) 30 ML VIAL INJ ONE (11:57)
[2022-06-04] MEDS ORDERED: GLYCOPYRROLATE 0.2 MG/ML (ROBINUL) 2 ML VIAL ONE (12:17)
[2022-06-04] MEDS ORDERED: NEOSTIGMINE (BLOXIVERZ ) 1 MG/1ML 10 ML VIAL ONE (12:17)
[2022-06-04] MEDS ORDERED: KETOROLAC 30 MG/ML VIAL ONE (12:18)
[2022-06-04] MEDS ORDERED: SEVOFLURANE (ULTANE) 15 ML INHAL SOLN ONE (12:24)
[2022-06-04] MEDS ORDERED: HYDROmorphone 2 MG/ML VIAL (DILAUDID) ONE (12:25)
--- NOTE | 2022-06-04 12:31 | Progress Note-Post Operative ---
Post-Operative Progess Note Surgeon (s)/Material Coordinator (s) Surgeon LARRY THOMAS DO Material Coordinator: [place] Pre-Operative Diagnosis Cholelithiasis/Cholecystitis Post-Operative Diagnosis same plus choledochalithiasis without obstruction Procedure & Operative Findings Date of Procedure 06/04/22 Procedure Performed/Findings PROCEDURE: Laparoscopic cholecystectomy with intraoperative cholangiogram. COMPLICATIONS: None. PROCEDURE: The patient was taken to the operating suite and was prepped and draped in sterile fashion. A surgical pause was performed. Just superior to the umbilicus, a 12 mm incision was made. Dissection was taken down to the fascia, which was then scored and grasped with a Day and the abdomen was then entered. A 0 Vicryl suture was placed in a [id number] fashion and a Gould trocar was placed and secured. Pneumoperitoneum was achieved. A 5mm trochar place in the subxyphoid and 2 in the right upper quadrant. The gallbladder was noted to have adhesions; which usually indicates previous gallbladder attacks. The gallbladder was then grasped at the fundus and elevated in the superior direction. Then took down the adhesions with bovie cautery and finally pulled on Ritchie's pouch with the other grasper; pulling infero-laterally. The cystic duct and cystic artery were then dissected out. The cystic duct was very large. Clip was placed on the distal portion of the cystic duct which was then partially transected. An arrow catheter was inserted into the duct. The cholangiogram was then performed. Multiple filling defects were seen, very large stones in the duct; however, contrast made its way into the duodenum. Catheter removed. Clips were placed on proximal portion of the cystic duct and then the duct was then transected. Elected to place an endo-loop around the large cystic duct (in preparation for ERCP). Clips were placed along the proximal and distal portion of the cystic artery which was then transected. Hook cautery was used to dissect the gallbladder from the gallbladder fossa achieving hemostasis. The gallbladder was placed in an Endobag and removed through the 12 mm trocar site. The abdomen was then reinspected. Copious amounts of irrigation were used to irrigate the abdomen and there were no signs of active bleeding. Hemostasis had been achieved. The 12 mm fascial defect was then closed with 0 Vicryl suture that had been placed in a [id number] fashion. The abdomen was then desufflated, the trocars were removed. The abdomen was then washed and dried. The skin was then closed using 4-0 Monocryl in a subcuticular fashion. The abdomen was washed and dried and Skin Affix was place over incisions. Patient tolerated the procedure well without any complications and was taken to the recovery room in stable condition. Dr. Moncada assisted on this case helping to make incisions, close incisions, identify anatomy and hold anatomy out of the way. Anesthesia Type GET Estimated Blood Loss Estimated blood loss (mL): less than 10ml Specimens/Packing Specimens Removed GB and contents LARRY THOMAS DO Jun 04, 2022 12:31
[2022-06-04] MEDS ORDERED: ACHD5005 PO (12:32)
--- NOTE | 2022-06-04 12:33 | Discharge Inst-Surgical ---
Discharge Inst-Surgical Depart Medication/Instructions New, Converted or Re-Newed RX: Transmitted to Pharmacy Patient Instructions Follow up Appt: Make appointment for 1 week. [phone] Instructions: No lifting greater than 20 pounds. No strenuous activity. May shower in 24 hours, no tub bath or soaking. Use incentive spirometer at home as directed. No Smoking Skin/Wound Care: May remove bandages in am. You need to leave the Dermabond on incision it will fall off on it's own. Symptoms to Report: Appetite Changes, Extremity Discoloration, Numbness/Tingling, Swelling Increased, Bleeding Excessive, Eyesight Changes, Pain Increased, Urine Color Change, Constipation(Persistent), Fever over 101 degree F, Pain/Pressure in chest, Urinating Difficulty, Cough Up/Vomit Blood, Heart Beat Irreg/Pounding, Pain/Pressure in jaw, Cramps in feet or legs, Lightheadedness, Pain/Pressure in shoulder, Diarrhea(Persistent), Memory Changes Suddenly, Questions/Concerns, Weight gain consecutive days, Dizziness/Fainting, Nausea/Vomiting, Shortness of Breath, Weight gain over 2 pounds If questions or concerns contact your physician Or seek help at emergency department. Activity Activity as Tolerated: Yes Activity Instructions: Avoid Stress to Incision Driving Instructions: No Driving/Refer to Diet Discharge Diet: Avoid Fatty Foods, Low Fat/Low Cholesterol Diet After 24 Hours: Clear Liquid if Nauseous If Any Problems/Questions/Issu: Contact Your Physician, Go to Emergency Room Skin/Wound Care Infection Signs and Symptoms: Increased Redness, Foul Odor of Wound, Increased Drainage, Skin Itchy or Has a Rash, Increased Swelling, Temperature Above 101 F Wound Care Comment: heating pad to shoulder or neck tonight for pain Bathing Instructions: Shower Stitches/[place]/Dermabond Dis: Dermabond Ice Pack: Ice On and Off Site LARRY THOMAS DO Jun 04, 2022 12:33
--- NOTE | 2022-06-04 12:39 | Diagnostic Imaging Report ---
INDICATION: Cholelithiasis and probable choledocholithiasis, undergoing cholecystectomy. EXAMINATION: One cine and one intraoperative cholangiogram. FLUOROSCOPY TIME: 10 seconds. FINDINGS: Cannulation of the extrahepatic biliary tree and injection of contrast. Common bile duct is mildly prominent. There are extensive filling defects throughout the common bile duct extending into the common hepatic duct and perhaps into the left main common bile duct. There is spillage of contrast into the duodenum. Cholecystectomy clips are present. IMPRESSION: Abnormal intraoperative cholangiogram with multifocal filling defects in the common bile duct and common hepatic duct extending into the left main hepatic duct. Some of these findings could reflect air bubbles but are worrisome for potential and extensive choledocholithiasis. Despite the extensive filling defects, there is only mild dilatation of the common bile duct. Correlation with intraoperative findings would be recommended. Dictated by: Dictated on workstation # [id number]
[2022-06-04] MEDS ORDERED: IOHEXOL 300 MG/ML 100 ML (OMNIPAQUE 300) VIAL INJ ONE (12:42)
[2022-06-04] MEDS ORDERED: ONDANSETRON 4 MG/2 ML (SDV) Z0FRAN IVP PRN (12:45)
[2022-06-04] MEDS ORDERED: HYDROcodone/APAP 5 MG/325 MG (LORTAB) TAB ONE (14:10)
[2022-06-04] MEDS ORDERED: HYDROcodone/APAP 5 MG/325 MG (LORTAB) TAB PO ONE (14:15)
--- NOTE | 2022-06-04 14:19 | Anesthesia-General Post-Op ---
General Patient Condition Mental Status/LOC: Same as Preop Cardiovascular: Satisfactory Nausea/Vomiting: Absent Respiratory: Satisfactory Pain: Controlled Complications: Absent Post Op Complications Complications None Follow Up Care/Instructions Patient Instructions None needed. Anesthesia/Patient Condition Patient Condition Patient is doing well, no complaints, stable vital signs, no apparent adverse anesthesia problems. No complications reported per nursing. D/C home per [facility] Criteria: Yes ASHVIN MONTERO CRNA Jun 04, 2022 14:19
[2022-06-05] MEDS ORDERED: ONDA4TAB11 SL (22:45)
== END 2022-06-04 14:55 | disposition home or self-care (01) ==
LOC: SDC 09:40
PROVIDERS: ATTEND Surgery
DX: K80.10 Calculus of gallbladder with chronic cholecystitis without obstruction (principal); K66.0 Peritoneal adhesions (postprocedural) (postinfection); K80.37 Calculus of bile duct with acute and chronic cholangitis with obstruction; E66.9 Obesity, unspecified; F17.210 Nicotine dependence, cigarettes, uncomplicated; Z68.33 Body mass index [BMI] 33.0-33.9, adult
CPT/HCPCS: 76000; 84703; 87081

== ENCOUNTER 2022-06-05 19:24 | Emergency (ER) | payer MEDICAID ==
[~2022-06-05] VITALS: Ht 160 cm; Wt 86.2 kg
--- NOTE | 2022-06-05 20:51 | ED Abdominal Pain ---
General Chief Complaint: Post OP Complications/Pain Stated Complaint: POST OP GALLBLADDER - PAIN,N/V Nursing Triage Note: PT AMB TO TRIAGE W REPROTS OF CHOLECYSTECTOMY YESTERDAY W DR. THOMAS. THIS EVENING PT BEGAN EXPERIENCING ABD PAIN, N/V. PT A&OX4. Source of Information: Patient, Family Exam Limitations: No Limitations History of Present Illness Date Seen by Provider: Jun 05, 2022 Time Seen by Provider: 20:51 Initial Comments Patient is a 46-year-old female who presents to the emergency department with her significant other chief complaint burning epigastric and diffuse abdominal pain, nausea vomiting since about 4:00 today. Patient has vomited about 4 5 times. Bright yellow bilious fluid. She had laparoscopic cholecystectomy with Dr. Thomas yesterday. She was doing fine until 4 today. She states she had a light breakfast this morning and ate some saltines and 1 chicken nugget this afternoon. She denies fevers or chills. She states her body hurts all over. She has had no other prior abdominal surgeries. She is not allergic to anything. She describes the pain as a "10". She states that it feels like severe heartburn. She is not on daily heartburn medication. She denies chest pain or shortness of breath. She is not a diabetic. All other review of systems reviewed and negative except as stated. Timing/Duration: 4-6 Hours Severity/Quality: Severe, Aching Location: Epigastric Radiation: Other (diffuse) Activities at Onset: None Associated Symptoms: Heartburn, Nausea/Vomiting, Weakness Allergies and Home Medications Allergies Coded Allergies: No Known Drug Allergies (Unverified , 06/03/22) Patient Home Medication List Home Medication List Reviewed: Yes Hydrocodone Bit/Acetaminophen (HYDROcodone/APAP 5 MG/325 MG TAB) 1 Tab Tab, 1 TAB PO Q8H PRN for PAIN-MODERATE (5-7) Prescribed by: LARRY THOMAS on 06/04/22 1232 Discontinued Medications Cefdinir (Cefdinir) 300 Mg Capsule, 300 MG PO BID Discontinued Reason: No Longer Taking Prescribed by: IRENE MABRY on 05/23/22 1224 Oxycodone Hcl (Oxyir Tablet) 5 Mg Tab, 5 MG PO Q4HR PRN for PAIN-SEE DOSE INSTRUCTIONS Discontinued Reason: No Longer Taking Prescribed by: IRENE MABRY on 05/23/22 1224 Potassium Chloride (Klor-Con 10) 10 Meq Tablet.er, 10 MEQ PO DAILY Discontinued Reason: No Longer Taking Prescribed by: IRENE MABRY on 05/23/22 1224 Review of Systems Review of Systems Constitutional: see HPI EENTM: No Symptoms Reported Respiratory: No Symptoms Reported Cardiovascular: No Symptoms Reported Gastrointestinal: Abdominal Pain, Nausea, Vomiting Genitourinary: No Symptoms Reported Musculoskeletal: no symptoms reported Skin: no symptoms reported Psychiatric/Neurological: No Symptoms Reported All Other Systems Reviewed Negative Unless Noted: Yes Past Vkczqxd-Wxfjdm-Sqfarm Hx Patient Social History Tobacco Use?: Yes Tobacco type used: Cigarettes Smoking Status: Current Everyday Smoker Use of E-Cig and/or Vaping dev: No Substance use?: No Alcohol Use?: No Immunizations Up To Date Tetanus Booster (TDap): Unknown Influenza Vaccine Up-to-Date: Yes; Up-to-Date First/Initial COVID19 Vaccinat: J AND J 2020 Second COVID19 Vaccination Misael: NONE Third COVID19 Vaccination Date: NONE COVID19 Vaccine Personal Carer: Kiddy Seasonal Allergies Seasonal Allergies: Yes Past Medical History Surgery/Hospitalization HX: ILDA Surgeries: Yes (LEFT UPPER ARM (METAL)) Adenoidectomy, Tonsillectomy Respiratory: Yes Pneumonia Currently Using CPAP: No Currently Using BIPAP: No Cardiac: No Neurological: No Reproductive Disorders: No Female Reproductive Disorders: Denies Genitourinary: No Gastrointestinal: No Musculoskeletal: Yes Fractures Endocrine: No HEENT: No Cancer: No Psychosocial: No Integumentary: No Blood Disorders: No Family Medical History No Pertinent Family Hx Physical Exam Vital Signs Vital Signs - First Documented 06/05/22 19:40 Temp 37.0 Pulse 99 Resp 20 B/P (MAP) 138/94 (109) Pulse Ox 95 O2 Delivery Room Air Capillary Refill : Less Than 3 Seconds Height/Weight/BMI Height: 5'3.00" Weight: 190lbs. 0oz. 86.696479ll; 33.00 BMI Method:Stated General Appearance: WD/WN, mild distress HEENT: PERRL/EOMI Respiratory: lungs clear, normal breath sounds, no respiratory distress, no accessory muscle use Cardiovascular: regular rate, rhythm, tachycardia (100) Gastrointestinal: soft, tenderness (mild diffuse tenderness (appropriate); very quiet bowel sounds) Extremities: normal range of motion, non-tender, normal inspection Neurologic/Psychiatric: no motor/sensory deficits, alert, normal mood/affect, oriented x 3 Skin: normal color, warm/dry, other (surgical wounds appear non infected) Progress/Results/Core Measures Results/Orders Lab Results Laboratory Tests Test 06/05/22 20:40 Range/Units White Blood Count 15.7 H 4.3-11.0 10^3/uL Red Blood Count 4.28 3.80-5.11 10^6/uL Hemoglobin 13.0 11.5-16.0 g/dL Hematocrit 41 35-52 % Mean Corpuscular Volume 95 80-99 fL Mean Corpuscular Hemoglobin 30 25-34 pg Mean Corpuscular Hemoglobin Concent 32 32-36 g/dL Red Cell Distribution Width 14.8 H 10.0-14.5 % Platelet Count 486 H 130-400 10^3/uL Mean Platelet Volume 10.2 9.0-12.2 fL Immature Granulocyte % (Auto) 1 % Neutrophils (%) (Auto) 71 42-75 % Lymphocytes (%) (Auto) 22 12-44 % Monocytes (%) (Auto) 6 0-12 % Eosinophils (%) (Auto) 1 0-10 % Basophils (%) (Auto) 0 0-10 % Neutrophils # (Auto) 11.1 H 1.8-7.8 10^3/uL Lymphocytes # (Auto) 3.4 1.0-4.0 10^3/uL Monocytes # (Auto) 0.9 0.0-1.0 10^3/uL Eosinophils # (Auto) 0.1 0.0-0.3 10^3/uL Basophils # (Auto) 0.1 0.0-0.1 10^3/uL Immature Granulocyte # (Auto) 0.1 0.0-0.1 10^3/uL Neutrophils % (Manual) 69 % Lymphocytes % (Manual) 26 % Monocytes % (Manual) 5 % Polychromasia Blood Morphology Comment NORMAL Sodium Level 141 135-145 MMOL/L Potassium Level 3.4 L 3.6-5.0 MMOL/L Chloride Level 105 98-107 MMOL/L Carbon Dioxide Level 24 21-32 MMOL/L Anion Gap 12 5-14 MMOL/L Blood Urea Nitrogen 6 L 7-18 MG/DL Creatinine 0.77 0.60-1.30 MG/DL Estimat Glomerular Filtration Rate 97 BUN/Creatinine Ratio 8 Glucose Level 136 H 70-105 MG/DL Calcium Level 9.4 8.5-10.1 MG/DL Corrected Calcium 9.6 8.5-10.1 MG/DL Total Bilirubin 0.4 0.1-1.0 MG/DL Aspartate Amino Transf (AST/SGOT) 36 H 5-34 U/L Alanine Aminotransferase (ALT/SGPT) 53 0-55 U/L Alkaline Phosphatase 123 40-136 U/L Total Protein 7.7 6.4-8.2 GM/DL Albumin 3.7 3.2-4.5 GM/DL Lipase 24 8-78 U/L My Orders Orders - LISA ORTEGA MD Ed Iv/Invasive Line Start (06/05/22 20:50) Cbc With Automated Diff (06/05/22 20:50) Comprehensive Metabolic Panel (06/05/22 20:50) Lipase (06/05/22 20:50) Ns Iv 1000 Ml (Sodium Chloride 0.9%) (06/05/22 21:00) Ondansetron Injection (Zofran Injectio (06/05/22 21:00) Fentanyl Inj (Sublimaze Injection) (06/05/22 21:00) Pantoprazole Injection (Protonix Injecti (06/05/22 21:00) Manual Differential (06/05/22 20:40) Sucralfate Tablet (Carafate Tablet) (06/05/22 21:30) Lidocaine 2% Viscous 15 Ml (Xylocaine Vi (06/05/22 21:30) Antacid Suspension (Mylanta Suspension (06/05/22 21:30) Medications Given in ED Current Medications Medications Dose Ordered Sig/Kd Route Start Time Stop Time Status Last Admin Dose Admin Al Hydrox/Mg Hydrox/Simethicone 30 ml ONCE ONCE PO 06/05/22 21:30 06/05/22 21:31 DC 06/05/22 21:42 30 ML Fentanyl Citrate 50 mcg ONCE ONCE IVP 06/05/22 21:00 06/05/22 21:01 DC 06/05/22 21:10 50 MCG Lidocaine HCl 5 ml ONCE ONCE PO 06/05/22 21:30 06/05/22 21:31 DC 06/05/22 21:42 5 ML Ondansetron HCl 8 mg ONCE ONCE IVP 06/05/22 21:00 06/05/22 21:01 DC 06/05/22 21:10 8 MG Pantoprazole 40 mg ONCE ONCE IV 06/05/22 21:00 06/05/22 21:01 DC 06/05/22 21:10 40 MG Sucralfate 1 gm ONCE ONCE PO 06/05/22 21:30 06/05/22 21:31 DC 06/05/22 21:42 1 GM Vital Signs/I&O 06/05/22 19:40 Temp 37.0 Pulse 99 Resp 20 B/P (MAP) 138/94 (109) Pulse Ox 95 O2 Delivery Room Air Blood Pressure Mean: 109 Departure Impression Primary Impression: Post-op pain Additional Impressions: GERD (gastroesophageal reflux disease) Qualified Codes: K21.9 - Gastro-esophageal reflux disease without esophagitis Nausea and vomiting Qualified Codes: R11.14 - Bilious vomiting Disposition: 01 HOME, SELF-CARE Condition: Improved Departure-Patient Inst. Decision time for Depature: 22:41 Referrals: [facility] (PCP/Family) Primary Care Physician LARRY THOMAS DO Patient Instructions: Nausea and Vomiting After Surgery Add. Discharge Instructions: Take ciox-[id number] acid clinical research analyst such as Prilosec or Pepcid as on packaging instructions for the next 2 weeks. Use the Zofran 4 mg every 8 hours as needed for nausea. Continue your prescribed pain medicine with a little food as directed/instructed by Dr. Thomas. If you develop a fever, worsening pain or vomiting and you are not able to hold down medications please come back to the emergency room for reevaluation. Scripts Ondansetron (Ondansetron Odt) 4 Mg Tab.rapdis 4 MG SL Q8H PRN for NAUSEA/VOMITING, #20 TAB Prov: LISA ORTEGA MD 06/05/22 Copy Copies To 1: LARRY THOMAS DO Copies To 2: REUBEN KESSLER DO LISA ORTEGA MD Jun 05, 2022 20:51
[2022-06-05 20:58] LABS: BASOPHILS # (AUTO) 0.1 10^3/uL (0.0-0.1); BASOPHILS % (AUTO) 0 % (0-10); EOSINOPHILS # (AUTO) 0.1 10^3/uL (0.0-0.3); EOSINOPHILS % (AUTO) 1 % (0-10); HEMATOCRIT 41 % (35-52); LYMPHOCYTES # (AUTO) 3.4 10^3/uL (1.0-4.0); LYMPHOCYTES % (AUTO) 22 % (12-44); MEAN CORPUSCULAR HEMOGLOBIN 30 pg (25-34); MEAN CORPUSCULAR HGB CONC 32 g/dL (32-36); MEAN CORPUSCULAR VOLUME 95 fL (80-99); MEAN PLATELET VOLUME 10.2 fL (9.0-12.2); MONOCYTES # (AUTO) 0.9 10^3/uL (0.0-1.0); MONOCYTES % (AUTO) 6 % (0-12); NEUTROPHILS # (AUTO) 11.1 10^3/uL (1.8-7.8); NEUTROPHILS % (AUTO) 71 % (42-75); PLATELET COUNT 486 10^3/uL (130-400); WHITE BLOOD COUNT 15.7 10^3/uL (4.3-11.0)
[2022-06-05] MEDS ORDERED: PANTOPRAZOLE 40 MG (PROTONIX) VIAL IV ONE (21:00)
[2022-06-05] MEDS ORDERED: fentaNYL INJ 100 MCG/2 ML AMP IVP ONE (21:00)
[2022-06-05] MEDS ORDERED: NS IV 1000 ML 1,000 ML IV SCH (21:00)
[2022-06-05] MEDS ORDERED: ONDANSETRON 4 MG/2 ML (SDV) Z0FRAN IVP ONE (21:00)
[2022-06-05 21:01] LABS: ALBUMIN 3.7 GM/DL (3.2-4.5); POTASSIUM 3.4 MMOL/L (3.6-5.0)
[2022-06-05 21:02] LABS: CALCIUM 9.4 MG/DL (8.5-10.1)
[2022-06-05 21:03] LABS: TOTAL PROTEIN 7.7 GM/DL (6.4-8.2)
[2022-06-05 21:05] LABS: BILIRUBIN,TOTAL 0.4 MG/DL (0.1-1.0)
[2022-06-05 21:07] LABS: CREATININE SERUM 0.77 MG/DL (0.60-1.30)
[2022-06-05 21:14] LABS: LYMPHOCYTES % (MANUAL) 26 %; MONOCYTES % (MANUAL) 5 %; NEUTROPHILS % (MANUAL) 69 %
[2022-06-05 21:15] LABS: RBC MORPH NORMAL
[2022-06-05] MEDS ORDERED: ANTACID SUSP 30 ML UDC (MYLANTA) PO ONE (21:30)
[2022-06-05] MEDS ORDERED: LIDOCAINE 2% VISCOUS 15 ML UDC PO ONE (21:30)
[2022-06-05] MEDS ORDERED: SUCRALFATE 1 GM (CARAFATE) TAB PO ONE (21:30)
[2022-06-05] MEDS ORDERED: RX-ONDANSETRON 4 MG ODT (ZOFRAN) PPK #4 PO STA (22:45)
[2022-06-05] MEDS ORDERED: ONDA4TAB11 SL (22:45)
[2022-06-05 22:57] VITALS: BP 152/89
== END 2022-06-05 22:57 | disposition home or self-care (01) ==
LOC: EDUNIT# 19:24 → ER 19:26
DX: G89.18 Other acute postprocedural pain (principal); K21.9 Gastro-esophageal reflux disease without esophagitis; F17.210 Nicotine dependence, cigarettes, uncomplicated; Z28.311 Partially vaccinated for COVID-19
CPT/HCPCS: 36415; 80053; 83690; 85007; 85027; 99283